=== PATIENT | male | born 1935 | race Caucasian/White ===

== ENCOUNTER 2018-05-25 14:40 | Inpatient (IN) | payer OTHER, BC ==
[2018-05-25] MEDS ORDERED: ACETAMINOPHEN 1000 MG/100 ML VIAL (NON FORMULARY) IVPB ONE (15:00)
[2018-05-25] MEDS ORDERED: SODIUM CHLORIDE 500 ML IV SCH (15:15)
--- NOTE | 2018-05-25 15:15 | PDOC ---
History of Present Illness - General Chief Complaint: Respiratory Stated Complaint: COUGH Time Seen by Provider: 05/25/18 14:45 History Source: Patient, Family (Daughter) Exam Limitations: No Limitations (Speech difficult to understand, but answers all questions appropriately) - History of Present Illness Initial Comments: Pt is a 82 yo M, with PMH of HTN, HLD, CAD and AFib (stents x9 -- on eliquis and plavix), and CVAs, who is presenting from home via EMS for complaints of weakness, vertigo, and cough. The pt is accompanied by his daughter. Pts daughter states the pt began to have dry nasal congestion and dry cough approximately 1 week ago. Throughout the week, the cough became "more wet sounding," but he did not produce any sputum. The cough has been controlled with OTC nyquil, and the pt has been able to sleep during the night. Over the past couple of days, the pt has felt more weak and has not been able to ambulate as much or take a shower. This AM, the pt did not get out of bed to get breakfast, and "he felt so weak he couldn't stand up to go to his appointment with Dr. Sma," which prompted the daughter to call EMS. The pt lives with his daughter for the past 4 years after his last stroke (residual deficits - speech difficulty, R arm contracture); his behavior is baseline currently according to the daughter. The pt can normally walk around the house on his own, and take care of most of his daily activities. Other family members at home have had similar symptoms, such as dry cough and congestion. Pt denies any fevers/chills, headache, vision changes, syncope, orthopnea, PND, chest pain , palpitations, SOB, nausea/vomiting, abdominal pain, urinary symptoms, diarrhea , or leg swelling. Social: Pt denies any cigarette, alcohol, or drug use. Pt denies any recent travel. Sick contacts at home (upper respiratory symptoms) . Surgical: CAD (stents) Family: no relevant history. 05/25/18 15:57 Past History - Travel Traveled outside of the country in the last 30 days: No Close contact w/someone who was outside of country & ill: No - Past Medical History Allergies/Adverse Reactions: Allergies Allergy/AdvReac Type Severity Reaction Status Date / Time No Known Allergies Allergy Verified 11/12/14 07:35 Home Medications: Ambulatory Orders Bisacodyl [Dulcolax] 10 mg RC DAILY PRN 06/07/13 Apixaban [Eliquis] 2.5 mg PO BID 05/25/18 Cholecalciferol (Vitamin D3) [Vitamin D3] 1,000 unit PO DAILY 05/25/18 Docusate Sodium [Colace] 100 mg PO DAILY PRN 05/25/18 Metoprolol Succinate [Toprol Xl] 12.5 mg PO BID 05/25/18 Rosuvastatin [Crestor -] 20 mg PO HS 05/25/18 Anemia: No Asthma: No Cancer: No Cardiac Disorders: Yes (stents x 9) CVA: Yes (01/2013, 08/2013) COPD: No CHF: No Dementia: No Diabetes: No GI Disorders: No Disorders: No HTN: Yes Hypercholesterolemia: Yes Liver Disease: No Seizures: No Thyroid Disease: No - Surgical History Abdominal Surgery: No Appendectomy: No Cardiac Surgery: Yes (BYPASS/STENTS) Cholecystectomy: No Lung Surgery: No Neurologic Surgery: No Orthopedic Surgery: No - Suicide/Smoking/Psychosocial Hx Smoking History: Never smoked Have you smoked in the past 12 months: No Number of Cigarettes Smoked Daily: 0 Cigars Per Day: 0 Hx Alcohol Use: No Drug/Substance Use Hx: No Substance Use Type: None Hx Substance Use Treatment: No Review of Systems - Review of Systems Able to Perform ROS?: Yes Is the patient limited Vietnamese proficient: No Constitutional: Yes: Loss of Appetite, Malaise, Weakness, Weight Stable. No: Chills, Diaphoresis, Fever, Night Sweats HEENTM: Yes: Nose Congestion. No: Blurred Vision, Recent change in vision, Hearing Loss, Throat Pain, Throat Swelling, Difficulty Swallowing Respiratory: Yes: Cough. No: Orthopnea, Shortness of Breath, Productive cough, Hemoptysis Cardiac (ROS): No: Chest Pain, Edema, Irregular Heart Rate, Lightheadedness, Palpitations, Syncope, Chest Tightness ABD/GI: No: Constipated, Diarrhea, Nausea, Poor Appetite, Poor Fluid Intake, Vomiting : No: Burning, Dysuria, Frequency, Pain, Urgency Musculoskeletal: Yes: Muscle Weakness. No: Back Pain, Joint Pain, Muscle Pain Integumentary: No: Rash Neurological: Yes: See HPI, Pre-Existing Deficit. No: Headache, Numbness, Paresthesia, Seizure, Unsteady Gait, Ataxia, Dizziness Psychiatric: No: Sleep Pattern Change, Change in Appetite Endocrine: No: Increased Urine, Change in Weight Hematologic/Lymphatic: Yes: Blood Clots (CAD, CVAs). No: Anemia, Easy Bleeding , Easy Bruising *Physical Exam - Physical Exam Comments: Rectal temp 100.3, HR in 130, O2 97% on RA. Pt in NAD, is able to lie comfortably. Body habitus is very thin. PE showed pt alert and oriented. oleomargarine maker generally intact, muscular strength and sensation intact. Pt has some garbled speech (baseline per daughter). Oropharynx without erythema or exudates. Dry nasal congestion present, no rhinorrhea or sinus tenderness. Hearing intact. Clear heart sounds, S1/S2, no JVD, b/l pedal edema, or heart murmur. Diffuse coarse lung sounds, mild wheezes over the anterior lung elena. No respiratory distress, no accessory muscle use. No abdominal or CVA tenderness to palpation, no rebound, no guarding. Abdomen soft, non-distended, and with normoactive bowel sounds. Skin without jaundice or rash. 05/25/18 15:56 ED Treatment Course - LABORATORY CBC & Chemistry Diagram: 05/25/18 15:15 05/25/18 15:15 Medical Decision Making - Medical Decision Making Pt was seen at bedside, also will be seen by attending Dr. Blum. Pt presenting from home via EMS for complaints of weakness, vertigo, and cough. The pt is accompanied by his daughter. Pts daughter states the pt began to have dry nasal congestion and dry cough approximately 1 week ago. Throughout the week, the cough became "more wet sounding," but he did not produce any sputum. The cough has been controlled with OTC nyquil, and the pt has been able to sleep during the night. Over the past couple of days, the pt has felt more weak and has not been able to ambulate as much or take a shower. This AM, the pt did not get out of bed to get breakfast, and "he felt so weak he couldn't stand up to go to his appointment with Dr. Sam," which prompted the daughter to call EMS. The pt lives with his daughter for the past 4 years after his last stroke (residual deficits - speech difficulty, R arm contracture); his behavior is baseline currently according to the daughter. The pt can normally walk around the house on his own, and take care of most of his daily activities. Other family members at home have had similar symptoms, such as dry cough and congestion. Pt denies any fevers/chills, headache, vision changes, syncope, orthopnea, PND, chest pain , palpitations, SOB, nausea/vomiting, abdominal pain, urinary symptoms, diarrhea , or leg swelling. Rectal temp 100.3, HR in 130, O2 97% on RA. Pt in NAD, is able to lie comfortably. Body habitus is very thin. PE showed pt alert and oriented. oleomargarine maker generally intact, muscular strength and sensation intact. Pt has some garbled speech (baseline per daughter). Oropharynx without erythema or exudates. Dry nasal congestion present, no rhinorrhea or sinus tenderness. Hearing intact. Clear heart sounds, S1/S2, no JVD, b/l pedal edema, or heart murmur. Diffuse coarse lung sounds, mild wheezes over the anterior lung elena. No respiratory distress, no accessory muscle use. No abdominal or CVA tenderness to palpation, no rebound, no guarding. Abdomen soft, non-distended, and with normoactive bowel sounds. Skin without jaundice or rash. Considering sepsis (likely 2/2 pneumonia) vs viral URI/influenza vs ACS vs acute heart failure Ordered work-up including sepsis protocol, blood cultures. Provided 1 g IV ofirmev and 500 mL IV NS (running slow) for improvement of fever and dehydration. Will continue to reassess pt and monitor for symptomatic improvement. Will continue to monitor HR and determine response to tylenol. Will provide pharmaceutical rate control (metoprolol) if necessary. ECG: HR 133, atrial flutter with 2:1 AV conduction. RAD. No significant ST segment elevations or depressions. 05/25/18 14:59 Pt received ofirmev -- HR still in 130s. Providing 5 mg IV metoprolol. Will reassess. Trop .86 -- likely demand CBC: slight anemia (H/H 9.0/29.8); no recent measurements for comparison, no increased WBCs CMP generally WNL INR 1.39 05/25/18 16:04 Repeat vitals after 5 IV metoprolol: BP 132/90, HR 85, O2 97% on RA Ordered 25 mg PO metoprolol for HR control. 05/25/18 16:21 Providing 1 g IV ceftriaxone and 500 mg IV azithromycin. 05/25/18 16:35 VBG: mild respiratory alkalosis, no significant deviations. CK index WNL, elevated trop likely due to demand. 05/25/18 16:49 Lactic 1.4 Chest x-ray shows mild hilar thickening compared to prior (2017), no significant lobar pneumonia. Paging hospitalist team for admission. 05/25/18 17:09 Hospitalist team accepted pt for admission (Dr. Sultana). Pt tolerating PO intake. HR stable in the 80s after metoprolol. Awaiting bed upstairs. 05/25/18 17:42 *DC/Admit/Observation/Transfer Diagnosis at time of Disposition: Elevated troponin, Atrial fibrillation with RVR Pneumonia Qualifiers: Pneumonia type: due to unspecified organism Laterality: unspecified laterality Lung location: unspecified part of lung Qualified Code(s): J18.9 - Pneumonia, unspecified organism - Discharge Dispostion Condition at time of disposition: Stable Decision to Admit order: Yes - Referrals Referrals: Taqueria Sam MD [Primary Care Provider] - - Patient Instructions - Post Discharge Activity
[2018-05-25] MEDS ORDERED: ACETAMINOPHEN INJECTION 100 ML IVPB ONE (15:23)
[2018-05-25 15:37] LABS: BASO % 0.2 % (0-2.0); EOS % 0.1 % (0-4.5); HEMATOCRIT 29.8 % (35.4-49); LYMPH % 17.3 % (8-40); MCHC 30.1 g/dl (32.0-35.9); MEAN CELL VOLUME 83.2 fl (80-96); MEAN PLT VOLUME 7.5 fl (7.5-11.1); NEUT % 75.4 % (42.8-82.8); PLATELET COUNT 279 K/MM3 (134-434); RBC 3.58 M/mm3 (4.00-5.60); RDW 17.9 % (11.9-15.9); WHITE BLOOD COUNT 6.9 K/mm3 (4.0-10.8)
[2018-05-25 15:56] LABS: ALBUMIN 3.5 g/dl (3.4-5.0); ALK PHOS 56 U/L (45-117); ANION GAP 9 MMOL/L (8-16); BILIRUBIN,TOTAL 0.7 mg/dl (0.2-1); BLOOD UREA NITROGEN 13 mg/dl (7-18); CALCIUM 9.1 mg/dl (8.5-10); CHLORIDE 102 mmol/L (98-107); CO2 25 mmol/L (21-32); CREATININE 0.7 mg/dl (0.55-1.3); GLUCOSE,RANDOM 145 mg/dl (74-106); MAGNESIUM 1.9 mg/dL (1.8-2.4); POTASSIUM 3.5 mmol/L (3.5-5.1); SGOT/AST 26 U/L (15-37); SGPT/ALT 9 U/L (13-61); SODIUM 136 mmol/L (136-145); TOT PROT 6.6 g/dl (6.4-8.2)
[2018-05-25 15:59] LABS: INR 1.39 (0.82-1.09); PROTHROMBIN TIME (PATIENT) 15.5 SEC (10.2-13.0)
[2018-05-25] MEDS ORDERED: METOPROLOL TARTRATE 5 MG/5 ML VIAL IVPUSH ONE (16:03)
[2018-05-25] MEDS ORDERED: METOPROLOL TARTRATE 5 MG/5 ML VIAL ONE (16:13)
--- NOTE | 2018-05-25 16:18 | PDOC ---
Attending Attestation - Resident Resident Name: Marni Roland - ED Attending Attestation I have performed the following: I have examined & evaluated the patient, The case was reviewed & discussed with the resident, I agree w/resident's findings & plan, Exceptions are as noted - HPI HPI: 05/25/18 16:06 82 M with h/o HTN, HLD, CAD/UT, Afib, CVAs, PNA, presenting to ED with cough, weakness x 5 days. Pt denies CP/SOB. Reports non-productive cough. Denies subjective fevers. Endorses severe general weakness. No unilateral weakness/ numbness. Denies leg swelling. - Physicial Exam PE: 05/25/18 16:09 "GENERAL: Awake, alert, and fully oriented, in no acute distress. HEAD: No signs of trauma EYES: PERRLA, EOMI, sclera anicteric, conjunctiva clear ENT: Auricles normal inspection, hearing grossly normal, nares patent, oropharynx clear without exudates. Moist mucosa NECK: Nontender, no stepoffs, Normal ROM, supple, no lymphadenopathy, JVD, or masses LUNGS: + diffuse rhonchi HEART: Regular rate and rhythm, normal S1 and S2, no murmurs, rubs or gallops ABDOMEN: Soft, nontender, normoactive bowel sounds. No guarding, no rebound. No masses EXTREMITIES: Normal range of motion, no edema. No clubbing or cyanosis. No cords, erythema, or tenderness NEUROLOGICAL: Cranial nerves II through XII intact. 5/5 strength and sensation in all extremities, Normal speech, normal gait, normal cerebellar function SKIN: Warm, Dry, normal turgor, no rashes or lesions noted. - Critical Care Time Total Critical Care Time: 60 Critical Care Statement: The care of this patient involved high complexity decision making to prevent further life threatening deterioration of the patient 's condition and/or to evaluate & treat vital organ system(s) failure or risk of failure. - Medical Decision Making 05/25/18 16:18 82 M with cough, weakness. Found to be febrile and tachycardic in ED. Will w/u for sepsis. Suspect pulmonary source given h/o PNA and rhonchorous lung sounds. Pt also found to be in aflutter HR 130s on EKG. - Labs, lactate, cultures - CXR, UA - Flu swab - Tylenol, Gentle IVF - Rate control as needed 05/25/18 16:27 Labs with trop 0.8, likely demand in setting of sepsis and aflutter with RVR Pt given metoprolol 5mg IV and 25mg PO with improvement in HR to 80s.
[2018-05-25] MEDS ORDERED: METOPROLOL TARTRATE 25 MG TABLET (FP) PO ONE (16:23)
[2018-05-25] MEDS ORDERED: METOPROLOL TARTRATE 50 MG TABLET (FP) ONE (16:26)
[2018-05-25] MEDS ORDERED: CEFTRIAXONE 1,000 MG in DEXTROSE 5%-WATER - 50 ML IVPB ONE (16:30)
[2018-05-25] MEDS ORDERED: AZITHROMYCIN IVPB 500 MG in DEXTROSE 5%-WATER - 250 ML IVPB ONE (16:31)
[2018-05-25] MEDS ORDERED: AZITHROMYCIN 500 MG VIAL IVPB ONE (16:34)
[2018-05-25] MEDS ORDERED: cefTRIAXone SODIUM 1 GM VIAL ONE (16:35)
[2018-05-25 16:41] LABS: VENOUS PC02 37.2 mmHg (38-52); VENOUS PH 7.46 (7.32-7.42); VENOUS PO2 42.4 mmHg (28-48)
[2018-05-25] MEDS ORDERED: BISACODYL 10 MG SUPP.RECT RC PRN (20:09)
[2018-05-25] MEDS ORDERED: DOCUSATE SODIUM 100 MG CAPSULE (FP) PO PRN (20:09)
[2018-05-25] MEDS: ROSUVASTATIN CA 20 MG TABLET (FP) PO SCH (21:38)
[2018-05-25] MEDS: metoPROLOL SUCCINATE 25 MG TAB.SR.24H (FP) PO SCH (21:38)
[2018-05-25] MEDS: APIXABAN 2.5 MG TABLET PO SCH (21:38)
--- NOTE | 2018-05-25 23:18 | HP ---
Admitting History and Physical - Primary Care Physician PCP: Taqueria Sam - Admission Chief Complaint: Fever, Weakness, Dizziness, Cough History of Present Illness: This is a 82 y/o man with a PMHx of: Afib (Eliquis, Metoprolol), CAD s/p Stents x9, HTN, HLD, CVA (R- residual, Dysarthria, 2012,2013). Who presents to the Ed via ambulance from home for cough x 1 week, fever, weakness, dizziness x today. Patient reports feeling weak and having a fever today. He reports having a cough for one week. Patient denies chills, SOB, CP, palpitations, AP, N/V/D, dysuria. Per the daughter who reported to the primary RN everyone at home has been sick. 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 Cardiovascular: Yes: AFIB, CAD, HTN, Hyperlipdemia, [place] - Past Surgical History Past Surgical History: Yes: CABG, Stent - Smoking History Smoking history: Never smoked Have you smoked in the past 12 months: No Aproximately how many cigarettes per day: 0 - Alcohol/Substance Use Hx Alcohol Use: No History of Substance Use: reports: None - Social History Usual Living Arrangement: Yes: With Child ADL: Family Assistance History of Recent Travel: No Home Medications - Allergies Allergies/Adverse Reactions: Allergies Allergy/AdvReac Type Severity Reaction Status Date / Time No Known Allergies Allergy Verified 11/12/14 07:35 - Home Medications Home Medications: Ambulatory Orders Bisacodyl [Dulcolax] 10 mg RC DAILY PRN 06/07/13 Apixaban [Eliquis] 2.5 mg PO BID 05/25/18 Cholecalciferol (Vitamin D3) [Vitamin D3] 1,000 unit PO DAILY 05/25/18 Docusate Sodium [Colace] 100 mg PO DAILY PRN 05/25/18 Metoprolol Succinate [Toprol Xl] 12.5 mg PO BID 05/25/18 Rosuvastatin [Crestor -] 20 mg PO HS 05/25/18 Family Disease History - Family Disease History Family History: Unable to Obtain Review of Systems - Review of Systems Constitutional: reports: Fever, Malaise, Weakness Eyes: reports: No Symptoms HENT: reports: No Symptoms Neck: reports: No Symptoms Cardiovascular: reports: No Symptoms Respiratory: reports: Cough Gastrointestinal: reports: Constipation Genitourinary: reports: No Symptoms Breasts: reports: No Symptoms Reported Musculoskeletal: reports: No Symptoms Integumentary: reports: No Symptoms Neurological: reports: Pre-Existing Deficit, Unsteady Gait, Weakness Endocrine: reports: No Symptoms Hematology/Lymphatic: reports: No Symptoms Psychiatric: reports: No Symptoms Physical Examination Vital Signs: Vital Signs Temperature 97.8 F 05/25/18 19:54 Pulse Rate 84 05/25/18 19:54 Respiratory Rate 18 05/25/18 19:54 Blood Pressure 113/47 L 05/25/18 19:54 O2 Sat by Pulse Oximetry (%) 97 05/25/18 21:00 Constitutional: Yes: No Distress, Calm, Thin Eyes: Yes: WNL, Conjunctiva Clear, EOM Intact, PERRL HENT: Yes: WNL, Atraumatic, Normocephalic Neck: Yes: WNL, Supple, Trachea Midline Cardiovascular: Yes: Pulse Irregular, S1, S2 Respiratory: Yes: Diminished, Rhonchi Gastrointestinal: Yes: WNL, Normal Bowel Sounds, Soft Renal/: Yes: WNL Breast(s): Yes: WNL Musculoskeletal: Yes: WNL Extremities: Yes: WNL Edema: No Peripheral Pulses WNL: Yes Neurological: Yes: Alert, Oriented, Cran Nerves II-XII Intact, Dysarthria ...Motor Strength: RUE (4/5) Psychiatric: Yes: WNL, Alert, Oriented Labs: CBC, BMP 05/25/18 15:15 05/25/18 15:15 Imaging - Results Chest X-ray: Report Reviewed, Image Reviewed EKG: Image Reviewed Problem List - Problems (1) Atrial fibrillation with RVR Code(s): I48.91 - UNSPECIFIED ATRIAL FIBRILLATION (2) Elevated troponin Code(s): R74.8 - ABNORMAL LEVELS OF OTHER SERUM ENZYMES (3) Pneumonia Code(s): J18.9 - PNEUMONIA, UNSPECIFIED ORGANISM Qualifiers: Pneumonia type: due to unspecified organism Laterality: unspecified laterality Lung location: unspecified part of lung Qualified Code(s): J18.9 - Pneumonia, unspecified organism (4) CAD (coronary artery disease) Code(s): I25.10 - ATHSCL HEART DISEASE OF [place] CORONARY ARTERY W/O ANG PCTRS (5) CVA (cerebral infarction) Code(s): I63.9 - CEREBRAL INFARCTION, UNSPECIFIED (6) Hyperlipidemia Code(s): E78.5 - HYPERLIPIDEMIA, UNSPECIFIED (7) Hypertension Code(s): I10 - ESSENTIAL (PRIMARY) HYPERTENSION Assessment/Plan This is a 82 y/o man admitted to Telemetry for Afib with RVR, Elevated Troponin , Pneumonia, Acute COPD Exacerbation, Generalized Weakness for further evaluation of their emergent condition. Plan: Cardiovascular: Afib with RVR Elevated Troponin HTN HLD CAD Admit to Telemetry Serial Enzymes Elevated Troponin likely demand ischemia Appreciate Cardiology consult Metoprolol given in ED, will continue EKG- Aflutter with 2:1 AV conduction [id number] Continue home meds Pulmonology: Pneumonia COPD Exacerbation [id number] Score 1 Blood Cultures-pending Chest xray image- coarse lung markings ?infiltrate RML Ceftriaxone, Azithromycin given in ED, will continue Urine Legionella O2 Monitor CBC, BMP Monitor vitals Tylenol prn Neuro: CVA Generalized Weakness Continue home meds NS bolus given in ED Will hold IVF concern for fluid overload, reassess in am Monitor CBC, BMP Fall precautions Appreciate PT eval for conditioning and gait strengthening FEN PO fluids as tolerated Replete lytes prn Low Na Diet DVT ppx OOB SCDs Heparin SQ Dispo: Requires Inpatient Care Visit type - Emergency Visit Emergency Visit: Yes ED Registration Date: 05/25/18 Care time: The patient presented to the Emergency Department on the above date and was hospitalized for further evaluation of their emergent condition. - New Patient This patient is new to me today: Yes Date on this admission: 05/25/18 - Critical Care Critical Care patient: No
--- NOTE | 2018-05-26 08:02 | PN ---
Physical Exam: SUBJECTIVE: Patient seen and examined, pt denies cp, sob, palpitations, abdominal pain, N/V/D. OBJECTIVE: Vital Signs Period Temp Pulse Resp BP Sys/Greer Pulse Ox Last 24 Hr 97.8 F-100.3 F 63-134 17-21 106-141/47-95 96-99 GENERAL: The patient is awake, alert, and fully oriented, in no acute distress, dysphasia from previous CVC HEAD: Normal with no signs of trauma. EYES: PERRL, extraocular movements intact, sclera anicteric, conjunctiva clear. No ptosis. ENT: Ears normal, nares patent, oropharynx clear without exudates, moist mucous membranes. NECK: Trachea midline, full range of motion, supple. LUNGS: Breath sounds equal, clear to auscultation bilaterally, no wheezes, no crackles, no accessory muscle use. HEART: regular ABDOMEN: Soft, nontender, nondistended, normoactive bowel sounds, no guarding, no rebound, no hepatosplenomegaly, no masses. EXTREMITIES: 2+ pulses, warm, well-perfused, no edema., Rt hand contracted, Rt side weakness NEUROLOGICAL: Cranial nerves II through XII grossly intact. Normal speech, gait not observed. PSYCH: Normal mood, normal affect. SKIN: Warm, dry, normal turgor, no rashes or lesions noted Laboratory Results - last 24 hr 05/25/18 05/25/18 05/25/18 15:15 15:15 15:15 WBC 6.9 RBC 3.58 L Hgb 9.0 L Hct 29.8 L MCV 83.2 MCH 25.0 L D MCHC 30.1 L RDW 17.9 H D Plt Count 279 MPV 7.5 Absolute Neuts (auto) 5.2 Neutrophils % 75.4 Lymphocytes % 17.3 Monocytes % 7.0 Eosinophils % 0.1 D Basophils % 0.2 PT with INR 15.5 H INR 1.39 H VBG pH POC VBG pCO2 POC VBG pO2 Mixed VBG HCO3 Sodium 136 Potassium 3.5 Chloride 102 Carbon Dioxide 25 Anion Gap 9 BUN 13 Creatinine 0.7 Creat Clearance w eGFR > 60 POC Glucometer Random Glucose 145 H Lactic Acid Calcium 9.1 Magnesium 1.9 Total Bilirubin 0.7 AST 26 ALT 9 L Alkaline Phosphatase 56 Creatine Kinase Creatine Kinase Index CK-MB (CK-2) Troponin I Total Protein 6.6 Albumin 3.5 Influenza A (Rapid) Influenza B (Rapid) 05/25/18 05/25/18 05/25/18 15:15 15:15 15:15 WBC RBC Hgb Hct MCV MCH MCHC RDW Plt Count MPV Absolute Neuts (auto) Neutrophils % Lymphocytes % Monocytes % Eosinophils % Basophils % PT with INR INR VBG pH POC VBG pCO2 POC VBG pO2 Mixed VBG HCO3 Sodium Potassium Chloride Carbon Dioxide Anion Gap BUN Creatinine Creat Clearance w eGFR POC Glucometer Random Glucose Lactic Acid 1.4 Calcium Magnesium Total Bilirubin AST ALT Alkaline Phosphatase Creatine Kinase 174 Creatine Kinase Index 2.0 CK-MB (CK-2) 3.5 Troponin I 0.81 H* D Total Protein Albumin Influenza A (Rapid) Influenza B (Rapid) 05/25/18 05/25/18 05/25/18 15:34 15:34 17:58 WBC RBC Hgb Hct MCV MCH MCHC RDW Plt Count MPV Absolute Neuts (auto) Neutrophils % Lymphocytes % Monocytes % Eosinophils % Basophils % PT with INR INR VBG pH 7.46 H POC VBG pCO2 37.2 L POC VBG pO2 42.4 Mixed VBG HCO3 26.0 H Sodium Potassium Chloride Carbon Dioxide Anion Gap BUN Creatinine Creat Clearance w eGFR POC Glucometer Random Glucose Lactic Acid Calcium Magnesium Total Bilirubin AST ALT Alkaline Phosphatase Creatine Kinase Creatine Kinase Index CK-MB (CK-2) Troponin I 0.86 H* Total Protein Albumin Influenza A (Rapid) Negative Influenza B (Rapid) Negative 05/25/18 05/25/18 21:00 22:26 WBC RBC Hgb Hct MCV MCH MCHC RDW Plt Count MPV Absolute Neuts (auto) Neutrophils % Lymphocytes % Monocytes % Eosinophils % Basophils % PT with INR INR VBG pH POC VBG pCO2 POC VBG pO2 Mixed VBG HCO3 Sodium Potassium Chloride Carbon Dioxide Anion Gap BUN Creatinine Creat Clearance w eGFR POC Glucometer 131 Random Glucose Lactic Acid Calcium Magnesium Total Bilirubin AST ALT Alkaline Phosphatase Creatine Kinase Creatine Kinase Index CK-MB (CK-2) Troponin I 0.95 H* Total Protein Albumin Influenza A (Rapid) Influenza B (Rapid) Active Medications Generic Name Dose Route Start Last Admin Trade Name Freq PRN Reason Stop Dose Admin Apixaban 2.5 mg 05/25/18 22:00 05/25/18 21:38 Eliquis - PO 2.5 mg BID RAUL Administration Bisacodyl 10 mg 05/25/18 20:09 Dulcolax Suppository - RC DAILY PRN CONSTIPATION Cholecalciferol 1,000 unit 05/26/18 10:00 Vitamin D3 - PO DAILY RAUL Clopidogrel Bisulfate 75 mg 05/26/18 10:00 Plavix - PO DAILY RAUL Docusate Sodium 100 mg 05/25/18 20:09 Colace - PO DAILY PRN CONSTIPATION Sodium Chloride 500 mls @ 150 mls/hr 05/25/18 15:15 05/25/18 15:34 Normal Saline - IV 150 mls/hr ASDIR RAUL Administration Azithromycin 500 mg in 250 mls @ 250 mls/hr 05/26/18 10:00 Zithromax 500mg Ivpb (Pre-Docked) IVPB DAILY RAUL Ceftriaxone Sodium 50 mls @ 100 mls/hr 05/26/18 10:00 Ceftriaxone 1 Gm-[id number] Bag IVPB DAILY [facility] Protocol Lisinopril 5 mg 05/26/18 10:00 Prinivil PO DAILY RAUL Metoprolol Succinate 12.5 mg 05/25/18 22:00 05/25/18 21:38 Toprol Xl - PO 12.5 mg BID RAUL Administration Rosuvastatin Calcium 20 mg 05/25/18 22:00 05/25/18 21:38 Crestor - PO 20 mg HS RAUL Administration EKG: A- Flutter 130's CxR: No acute pathology Blood Culture done, report pending ASSESSMENT/PLAN: This is a 82 y/o man with a PMHx of: Afib (Eliquis, Metoprolol), CAD s/p Stents x9, HTN, HLD, CVA (R- residual, Dysarthria, 2012,2013). Who presents to the Ed via ambulance from home for cough x 1 week, fever, weakness, dizziness. In Er found to have A- Fib with RVR and elevated Trop. * Rapid A- fib - now HR improved in 80--90's - tele monitoring -will cont on Eliquis, BB - will check TSH * Abnormal Trop, hx of CAD with stents x9, - Trop level 0.95>0.79 - No acute EKG changes -will cont on BB, Plavix Statin - cardiology consult - Echo - tele monitoring * Low grade fever, cough, ? bronchitis vs CAp - Influenza ruled out - CxR: No infiltrate - afebrile now, no leukocytosis - BC pending - will cont on abx - lactic acid normal * Anemia - r/o GI bleed - CBC trending down ? dilution - will check stool OB -Fe studies, LDH, hapoglobin *HTN- Bp stable - will cont on Lisinopril and BB * HLD - will cont on Statin * HX of CVA (R- residual, Dysarthria, 2012,2013). - will cont on Eliquis, Statin * F/E/N Heart Healthy Diet PT eval * VTE on Eliquis Visit type - Emergency Visit Emergency Visit: Yes ED Registration Date: 05/25/18 Care time: The patient presented to the Emergency Department on the above date and was hospitalized for further evaluation of their emergent condition. - New Patient This patient is new to me today: Yes Date on this admission: 05/26/18 - Critical Care Critical Care patient: No
[2018-05-26 08:25] LABS: ANION GAP 9 MMOL/L (8-16); BASO % 0.3 % (0-2.0); BLOOD UREA NITROGEN 15 mg/dl (7-18); CHLORIDE 106 mmol/L (98-107); CO2 26 mmol/L (21-32); CREATININE 0.7 mg/dl (0.55-1.3); GLUCOSE,RANDOM 106 mg/dl (74-106); HEMATOCRIT 26.5 % (35.4-49); LYMPH % 26.8 % (8-40); MCHC 30.4 g/dl (32.0-35.9); MEAN CELL VOLUME 82.5 fl (80-96); MEAN PLT VOLUME 7.7 fl (7.5-11.1); MONO % 7.5 % (3.8-10.2); NEUT % 64.4 % (42.8-82.8); PLATELET COUNT 253 K/MM3 (134-434); POTASSIUM 4.3 mmol/L (3.5-5.1); RBC 3.21 M/mm3 (4.00-5.60); RDW 17.4 % (11.9-15.9); SODIUM 141 mmol/L (136-145); WHITE BLOOD COUNT 6.1 K/mm3 (4.0-10.8)
[2018-05-26 08:33] LABS: CHOLESTEROL 98 mg/dl (50-200); HDL CHOLESTEROL 33 mg/dl (40-60); LDL CHOLESTEROL (ONLY DFH) 53 mg/dl (0-100); TRIGLYCERIDES 61 mg/dl (0-150)
[2018-05-26] MEDS: APIXABAN 2.5 MG TABLET PO SCH ×2 (09:16→21:25)
[2018-05-26] MEDS: CLOPIDOGREL BISULFATE 75 MG TABLET (FP) PO SCH (09:17)
[2018-05-26] MEDS: LISINOPRIL 5 MG TABLET (FP) PO SCH (09:17)
[2018-05-26] MEDS: CEFTRIAXONE 1 G/50 ML PREMIX 50 ML IVPB SCH (09:17)
[2018-05-26] MEDS: CHOLECALCIFEROL (VITAMIN D3) 1,000 UNIT TABLET (FP) PO SCH (09:17)
[2018-05-26] MEDS: metoPROLOL SUCCINATE 25 MG TAB.SR.24H (FP) PO SCH ×2 (09:18→21:25)
[2018-05-26] MEDS: AZITHROMYCIN IVPB 500 MG/250 ML BAG IVPB SCH (09:18)
--- NOTE | 2018-05-26 11:50 | EKG ---
Test Reason : Blood Pressure : / mmHG Vent. Rate : 133 BPM Atrial Rate : 266 BPM P-R Int : 000 ms QRS Dur : 104 ms QT Int : 326 ms P-R-T Axes : 106 097 -58 degrees QTc Int : 485 ms SUSPECT ARM LEAD REVERSAL, INTERPRETATION ASSUMES NO REVERSAL ATRIAL FLUTTER WITH 2:1 A-V CONDUCTION RIGHTWARD AXIS NONSPECIFIC ST ABNORMALITY ABNORMAL QRS-T ANGLE, CONSIDER PRIMARY T WAVE ABNORMALITY ABNORMAL ECG WHEN COMPARED WITH ECG OF 07-DEC-2013 19:46, SIGNIFICANT CHANGES HAVE OCCURRED Confirmed by FRANNIE CHASE, JOSETTE ([id number]) on 05/26/2018 11:50:21 AM Referred By: BEBE SANDERSON Confirmed By:JOSETTE KATHLEEN MD
--- NOTE | 2018-05-26 14:37 | ECHO ---
Version: 1 Name: MARGOT FAY Exam: Adult Echocardiogram Study Date: 05/26/2018, 1:13 PM Age: 82 Years MMode/2D Measurements & Calculations IVSd: 0.96 cm LVIDs: 3.0 cm LVIDd: 4.8 cm LVPWd: 0.88 cm Ao root diam: 3.1 cm LA dimension: 4.2 cm Doppler Measurements & Calculations MV E max rico: 95.4 cm/sec MV A max rico: 41.4 cm/sec MV E/A: 2.30 MR max P.6 mmHg PI end-d rico: 113.4 cm/sec TR max rico: 168.8 cm/sec TR max P.4 mmHg Left Ventricle There is mild concentric left ventricular hypertrophy. Left ventricular systolic function is low nor mal. Ejection Fraction = 45-50%. There is mild inferior wall hypokinesis. Septal motion is consistent wit h conduction abnormality. Right Ventricle The right ventricle is grossly normal size. The right ventricular systolic function is grossly haider l. Atria The left atrium is mildly dilated. Right atrial size is normal. Mitral Valve There is mild to moderate mitral valve thickening. There is no mitral valve stenosis. There is mild mitral regurgitation. Tricuspid Valve The tricuspid valve is normal in structure and function. There is mild tricuspid regurgitation. Aortic Valve There is mild to moderate aortic valve thickening. No hemodynamically significant valvular aortic st enosis. Mild aortic regurgitation. Pulmonic Valve The pulmonic valve is not well seen, but is grossly normal. There is no pulmonic valvular stenosis. Mild pulmonic valvular regurgitation. Great Vessels The aortic root is normal size. Pericardium/Pleura There is no pericardial effusion. Summary Statements There is mild inferior wall hypokinesis. Septal motion is consistent with conduction abnormality. Left ventricular systolic function is low normal. Ejection Fraction = 45-50%. The left atrium is mildly dilated. There is mild to moderate mitral valve thickening. There is mild mitral regurgitation. There is mild tricuspid regurgitation. There is mild to moderate aortic valve thickening. Mild aortic regurgitation. There is no pericardial effusion. MD Denney *Tracy 05/26/2018, 2:36 PM Ordering Physician: Carina Jules Performed By: Tiffani Arauz
--- NOTE | 2018-05-26 15:02 | CON.CARD ---
Consult Consult Specialty:: Cardiology Referred by:: Medicine Reason for Consultation:: afib - History of Present Illness Chief Complaint: shortness of breath, cough, fever History of Present Illness: 82M h/o afib on eliquis, CAD s/p stents x 9, HTN, HLD, CVA p/w cough, fever, weakness, dizziness. Prior patient of Dr. Ferguson for cardio. Noted in the ER to have elevated troponin, tachycardia, treating for PNA. Currently feels better, no chest pain, palps, dizziness, lightheadedness. dyspnea, cough improving. 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 Cardio/Vascular: Yes: AFIB, CAD, HTN, Hyperlipdemia, SD - Past Surgical History Past Surgical History: Yes: CABG, Stent - Alcohol/Substance Use Hx Alcohol Use: No History of Substance Use: reports: None - Smoking History Smoking history: Never smoked Have you smoked in the past 12 months: No Aproximately how many cigarettes per day: 0 - Social History ADL: Family Assistance History of Recent Travel: No Home Medications - Allergies Allergies/Adverse Reactions: Allergies Allergy/AdvReac Type Severity Reaction Status Date / Time No Known Allergies Allergy Verified 11/12/14 07:35 - Home Medications Home Medications: Ambulatory Orders Bisacodyl [Dulcolax] 10 mg RC DAILY PRN 06/07/13 Apixaban [Eliquis] 2.5 mg PO BID 05/25/18 Cholecalciferol (Vitamin D3) [Vitamin D3] 1,000 unit PO DAILY 05/25/18 Docusate Sodium [Colace] 100 mg PO DAILY PRN 05/25/18 Metoprolol Succinate [Toprol Xl] 12.5 mg PO BID 05/25/18 Rosuvastatin [Crestor -] 20 mg PO HS 05/25/18 Family Disease History - Family Disease History Family History: Unremarkable Review of Systems - Review of Systems Constitutional: reports: No Symptoms Eyes: reports: No Symptoms HENT: reports: No Symptoms Neck: reports: No Symptoms Cardiovascular: reports: No Symptoms Respiratory: reports: No Symptoms Gastrointestinal: reports: No Symptoms Genitourinary: reports: No Symptoms Musculoskeletal: reports: No Symptoms Integumentary: reports: No Symptoms Neurological: reports: No Symptoms Endocrine: reports: No Symptoms Hematology/Lymphatic: reports: No Symptoms Psychiatric: reports: No Symptoms Vital Signs: Vital Signs Temperature 98.8 F 05/26/18 14:35 Pulse Rate 87 05/26/18 14:35 Respiratory Rate 16 05/26/18 14:35 Blood Pressure 114/56 L 05/26/18 14:35 O2 Sat by Pulse Oximetry (%) 100 05/26/18 14:37 Constitutional: Yes: Well Nourished, No Distress, Calm Eyes: Yes: Conjunctiva Clear, EOM Intact HENT: Yes: Atraumatic, Normocephalic Neck: Yes: Supple, Trachea Midline Respiratory: Yes: Regular, CTA Bilaterally Gastrointestinal: Yes: Normal Bowel Sounds, Soft Cardiovascular: Yes: Pulse Irregular JVD: No Carotid Bruit: No PMI: Non-Displaced Heart Sounds: Yes: S1, S2 Musculoskeletal: No: Back Pain Extremities: No: Cold Edema: No Peripheral Pulses WNL: Yes Peripheral Pulses: 2+ Left Doralis Pedis, 2+ Right Dorsalis Pedis Integumentary: No: Jaundice Neurological: Yes: Alert, Oriented Psychiatric: No: Agitated - Other Data Labs, Other Data: CBC, BMP 05/26/18 07:10 05/26/18 07:10 INR, PTT INR 1.39 (0.82-1.09) H 05/25/18 15:15 Troponin, BNP 05/25/18 05/25/18 05/25/18 15:15 17:58 21:00 Troponin I 0.81 H* D 0.86 H* 0.95 H* 05/26/18 07:10 Troponin I 0.79 H* Troponin, BNP 05/25/18 05/25/18 05/25/18 15:15 17:58 21:00 Troponin I 0.81 H* D 0.86 H* 0.95 H* 05/26/18 07:10 Troponin I 0.79 H* Assessment/Plan echo 05/2018 mild inf wall hypokinesis, septal motion c/w conduction abnormality , EF 45-50%, low normal systolic function, LA mildly dilated, mild MR, mild TR, mild AR echo 09/2017 afib, 80s, nl LV fn, hypokinesis of inferobasal wall and inf apex, mild to mod AR, mild to mod MR, ao sinus 3.8 cm, asc ao 3.8 cm, EKG: aflutter rate 133 bpm CXR no acute process tele: afib, PVCs 82M h/o afib on eliquis, CAD s/p stents x 9, HTN, HLD, CVA p/w cough, fever, weakness, dizziness with elevated trop shortness of breath, cough - treating for COPD exac, pna per primary elevated troponin - flat trend, indeterminate range, EKG no ischemic changes, unlikely ACS - likely demand ischemia atrial fibrillation - cont eliquis - rapid rate may be in setting of infection, improved - rate improved on metoprolol, continue cardiomyopathy - new compared to echo from clinic 09/2017, low normal EF - appears euvolemic, defer diuretics - continue lisinopril, metoprolol CAD - s/p SD, CABG 1989, multiple PCIs, last 2002 - cont plavix, statin HLD - cont statin HTN - cont home meds lisinopril, metoprolol, stable
[2018-05-26] MEDS: ROSUVASTATIN CA 20 MG TABLET (FP) PO SCH (21:25)
[2018-05-27 06:29] VITALS: BP 108/40; PULSE 72; TEMP 97.4
[2018-05-27 08:06] LABS: SERUM IRON SATURATION 5 % (15-55); TOTAL IRON BINDING CAPACITY 304 ug/dL (250-450); UIBC 290 ug/dL (111-343)
[2018-05-27 08:51] LABS: BASO % 0.5 % (0-2.0); EOS % 1.9 % (0-4.5); HEMATOCRIT 28.4 % (35.4-49); HEMOGLOBIN 8.7 GM/dl (11.7-16.9); LYMPH % 51.3 % (8-40); MCH 25.4 pg (25.7-33.7); MCHC 30.7 g/dl (32.0-35.9); MEAN CELL VOLUME 82.8 fl (80-96); MEAN PLT VOLUME 7.7 fl (7.5-11.1); MONO % 6.6 % (3.8-10.2); NEUT % 39.7 % (42.8-82.8); PLATELET COUNT 324 K/MM3 (134-434); RBC 3.43 M/mm3 (4.00-5.60); RDW 17.9 % (11.9-15.9); WHITE BLOOD COUNT 7.2 K/mm3 (4.0-10.8)
[2018-05-27 09:53] LABS: PH,URINE 5.5 (4.5-8); URINE APPEARANCE Clear; URINE BILIRUBIN 1+ (NEGATIVE); URINE COLOR Amber; URINE GLUCOSE (UA) Negative (NEGATIVE); URINE KETONE Trace (NEGATIVE); URINE LEUK ESTERASE Negative (NEGATIVE); URINE NITRITE Negative (NEGATIVE); URINE PROTEIN 1+ (NEGATIVE)
[2018-05-27 10:00] LABS: URINE RBC 0-2 /hpf (0-3)
[2018-05-27 10:01] LABS: URINE MUCUS 1+
[2018-05-27] MEDS: APIXABAN 2.5 MG TABLET PO SCH (10:01)
[2018-05-27] MEDS: AZITHROMYCIN IVPB 500 MG/250 ML BAG IVPB SCH (10:01)
[2018-05-27] MEDS: CLOPIDOGREL BISULFATE 75 MG TABLET (FP) PO SCH (10:01)
[2018-05-27] MEDS: CEFTRIAXONE 1 G/50 ML PREMIX 50 ML IVPB SCH (10:01)
[2018-05-27] MEDS: metoPROLOL SUCCINATE 25 MG TAB.SR.24H (FP) PO SCH (10:02)
[2018-05-27] MEDS: CHOLECALCIFEROL (VITAMIN D3) 1,000 UNIT TABLET (FP) PO SCH (10:02)
[2018-05-27] MEDS: LISINOPRIL 5 MG TABLET (FP) PO SCH (10:02)
--- NOTE | 2018-05-27 13:32 | DS ---
Physical Exam: SUBJECTIVE: Patient seen and examined OBJECTIVE: Vital Signs Period Temp Pulse Resp BP Sys/Greer Pulse Ox Last 24 Hr 97.4 F-98.8 F 72-127 16-19 108-124/40-80 94-100 PHYSICAL EXAM GENERAL: The patient is awake, alert, and fully oriented, in no acute distress. HEAD: Normal with no signs of trauma. EYES: PERRL, extraocular movements intact, sclera anicteric, conjunctiva clear. ENT: Ears normal, nares patent, oropharynx clear without exudates, moist mucous membranes. NECK: Trachea midline, full range of motion, supple. LUNGS: Breath sounds equal, clear to auscultation bilaterally, no wheezes, no crackles, no accessory muscle use. HEART: Regular rate and rhythm, S1, S2 without murmur, rub or gallop. ABDOMEN: Soft, nontender, nondistended, normoactive bowel sounds, no guarding, no rebound, no hepatosplenomegaly, no masses. EXTREMITIES: 2+ pulses, warm, well-perfused, no edema. NEUROLOGICAL: Cranial nerves II through XII grossly intact. Normal speech, gait not observed. PSYCH: Normal mood, normal affect. SKIN: Warm, dry, normal turgor, no rashes or lesions noted. LABS Laboratory Results - last 24 hr 05/26/18 05/26/18 05/27/18 07:00 07:10 07:50 WBC 7.2 RBC 3.43 L Hgb 8.7 L Hct 28.4 L MCV 82.8 MCH 25.4 L MCHC 30.7 L RDW 17.9 H Plt Count 324 D MPV 7.7 Absolute Neuts (auto) 2.9 Neutrophils % 39.7 L D Lymphocytes % 51.3 H D Monocytes % 6.6 Eosinophils % 1.9 D Basophils % 0.5 Haptoglobin 312 H Iron 14 L TIBC 304 Iron Saturation 5 L Urine Color Urine Appearance Urine pH Ur Specific Clawson Urine Protein Urine Glucose (UA) Urine Ketones Urine Blood Urine Nitrite Urine Bilirubin Urine Urobilinogen Ur Leukocyte Esterase Urine RBC Urine WBC Urine Mucus 05/27/18 09:00 WBC RBC Hgb Hct MCV MCH MCHC RDW Plt Count MPV Absolute Neuts (auto) Neutrophils % Lymphocytes % Monocytes % Eosinophils % Basophils % Haptoglobin Iron TIBC Iron Saturation Urine Color Evelina Urine Appearance Clear Urine pH 5.5 D Ur Specific Clawson >= 1.030 Urine Protein 1+ H Urine Glucose (UA) Negative Urine Ketones Trace Urine Blood Negative Urine Nitrite Negative Urine Bilirubin 1+ H Urine Urobilinogen 1.0 Ur Leukocyte Esterase Negative Urine RBC 0-2 Urine WBC 2-5 Urine Mucus 1+ HOSPITAL COURSE: Date of Admission:05/25/18 Date of Discharge: 05/27/18 Pre hospital course This is a 82 y/o man with a PMHx of: Afib (Eliquis, Metoprolol), CAD s/p Stents x9, HTN, HLD, CVA (R- residual, Dysarthria, 2012,2013). Who presents to the Ed via ambulance from home for cough x 1 week, fever, weakness, dizziness x today. Patient reports feeling weak and having a fever today. He reports having a cough for one week. Patient denies chills, SOB, CP, palpitations, AP, N/V/D, dysuria. Per the daughter who reported to the primary RN everyone at home has been sick. Subsequent hospital course This is a 82 y/o man with a PMHx of: Afib (Eliquis, Metoprolol), CAD s/p Stents x9, HTN, HLD, CVA (R- residual, Dysarthria, 2012,2013). Who presents to the Ed via ambulance from home for cough x 1 week, fever, weakness, dizziness. In Er found to have A- Fib with RVR and elevated Trop. Atrial fibrillation --initial HR 134 in ED, quickly came under control --continued on home dose Toprol XL --continued Eliquis --TSH wnl Cardiomyopathy Systolic function low normal --05/26 Echo: mild cLVH; LV low normal, EF 45-50%; mild inferiorwall hypokinesis; RV normal; LAE; mild MR; mild TR; mild AI; mild PI CAD s/p stents --troponins flat trending, no acute ECG changes --contnued on Toprol XL, Plavix, Crestor Hypertension --continued on lisinopril, Toprol XL Hyperlipidemia --continued on Crestor Upper respiratory viral illness --afebrile, no leukocytosis, CXR negative, flu negative --treated empirically on azithro and ceftriaxone, discharged off antibiotics --at time of discharge, SpO2 95% on room air at rest; 99% on room air with flat surface walking Minutes to complete discharge: 35 Discharge Summary Reason For Visit: ECELATED TROPONIN LEVEL, PNEUMOIA Current Active Problems Atrial fibrillation with RVR (Acute) Elevated troponin (Acute) Pneumonia (Acute) Condition: Improved - Instructions Diet, Activity, Other Instructions: It is recommended you follow up with Dr. Sam within one week of your discharge. Return to the emergency department for any new or worsening symptoms. Referrals: Taqueria Sam MD [Primary Care Provider] - Disposition: HOME - Home Medications Comprehensive Discharge Medication List: Ambulatory Orders Bisacodyl [Dulcolax] 10 mg RC DAILY PRN 06/07/13 Apixaban [Eliquis] 2.5 mg PO BID 05/25/18 Cholecalciferol (Vitamin D3) [Vitamin D3] 1,000 unit PO DAILY 05/25/18 Docusate Sodium [Colace] 100 mg PO DAILY PRN 05/25/18 Metoprolol Succinate [Toprol Xl] 12.5 mg PO BID 05/25/18 Rosuvastatin [Crestor -] 20 mg PO HS 05/25/18 This patient is new to me today: Yes Date on this admission: 05/29/18 Emergency Visit: Yes ED Registration Date: 05/25/18 Care time: The patient presented to the Emergency Department on the above date and was hospitalized for further evaluation of their emergent condition. Critical Care patient: No - Discharge Referral Referred to [facility] Med [facility] Yes Physician Referral: Taqueria Sam MD (Int Med)
== END 2018-05-27 14:15 | disposition home or self-care (01) | DRG 308 ==
LOC: FER 14:40 → FM/S 17:10
PROVIDERS: ADMIT Internal Medicine; ATTEND Nurse Practitioner Acute Care
DX: I48.92 Unspecified atrial flutter (principal); J18.9 Pneumonia, unspecified organism; J44.1 Chronic obstructive pulmonary disease with (acute) exacerbation; I24.8 Other forms of acute ischemic heart disease; E87.3 Alkalosis; I42.8 Other cardiomyopathies; I48.91 Unspecified atrial fibrillation; I10 Essential (primary) hypertension; E78.5 Hyperlipidemia, unspecified; I25.10 Atherosclerotic heart disease of native coronary artery without angina pectoris; Z79.01 Long term (current) use of anticoagulants; I25.2 Old myocardial infarction; I69.322 Dysarthria following cerebral infarction; D64.9 Anemia, unspecified; Z95.1 Presence of aortocoronary bypass graft; J06.9 Acute upper respiratory infection, unspecified; Z95.5 Presence of coronary angioplasty implant and graft
CPT/HCPCS: 36415; 71045-TC-FY; 80048; 80053; 80061; 81003; 81015; 82550; 82553; 82607; 82746; 82803; 82962; 83010; 83540; 83550; 83605; 83615; 83735; 84443; 84484; 85025; 85610; 87040; 87804; 93005; 93306-TC; 97116-GP; 97162-GP; 99285-25; J0131; J7030

== ENCOUNTER 2018-05-31 20:53 | Emergency (ER) | payer OTHER, BC ==
[2018-05-31 21:12] VITALS: TEMP 97.7; BMI 25.1
--- NOTE | 2018-05-31 21:23 | PDOC ---
Attending Attestation - HPI HPI: 05/31/18 23:07 The patient is a 82 year old male with a significant past medical history of afib, cad s/p multiple stents, afib, on eliquis and plavix, prior stroke with speech deficits, who presents to the emergency department today accompanied by daughter complaining of dizziness which is not worse upon exertion. He states he is still able to ambulate but does not feel right when doing so. Patient reports a recent hospitalization last week for high troponin levels. The patient denies chest pain, shortness of breath, and headache. Denies fever, chills, nausea, vomit, diarrhea and constipation. Denies dysuria, frequency, urgency and hematuria. Allergies: NKA Past surgical history: Cardiac bypass with stents. Social history: None reported. - Physicial Exam PE: 05/31/18 23:07 Agree with resident's exam. <Brandi Little - Last Filed: 05/31/18 23:07> - Resident Resident Name: Britton Bueno - ED Attending Attestation I have performed the following: I have examined & evaluated the patient, The case was reviewed & discussed with the resident, I agree w/resident's findings & plan - Medical Decision Making 06/01/18 01:28 82-year-old male with an episode of lightheadedness, now resolved According to daughter the patient's did not eat well today He has a recent admission to the hospital with elevated troponins Patient states on reevaluation at 1:28 AM that he is feeling well would like to go home, he has agreed to a second troponin drawn but would like to go home and be called if the results are concerning He is accompanied by his daughter who agrees with the plan CT scan of the brain showed no acute abnormality Stool guaiac was negative He will follow with his regular physician who has been working up his anemia CVA unlikely due to return to baseline and now steady gait <Marcia Ramires - Last Filed: 06/01/18 01:31> Attestations - Attestations 05/31/18 23:08 Documentation prepared by Brandi Little, acting as medical driver for Marcia Ramires DO. <Brandi Little - Last Filed: 05/31/18 23:07>
[2018-05-31 21:49] LABS: BASO % 0.7 % (0-2.0); EOS % 1.4 % (0-4.5); HEMATOCRIT 24.4 % (35.4-49); LYMPH % 26.2 % (8-40); MCH 26.4 pg (25.7-33.7); MCHC 32.7 g/dl (32.0-35.9); MEAN CELL VOLUME 80.9 fl (80-96); MEAN PLT VOLUME 6.9 fl (7.5-11.1); MONO % 8.7 % (3.8-10.2); PLATELET COUNT 315 K/MM3 (134-434); RBC 3.02 M/mm3 (4.00-5.60); RDW 18.6 % (11.9-15.9); WHITE BLOOD COUNT 5.6 K/mm3 (4.0-10.0)
[2018-05-31 22:10] LABS: INR 1.24 (0.83-1.09); PROTHROMBIN TIME (PATIENT) 14.7 SEC (9.7-13.0)
--- NOTE | 2018-05-31 22:24 | PDOC ---
History of Present Illness - General Chief Complaint: Lethargy Stated Complaint: LETHARGIC Time Seen by Provider: 05/31/18 21:17 History Source: Patient, Family - History of Present Illness Initial Comments: 05/31/18 22:16 Patient is an 82M with history of afib, cad s/p multiple stents, afib, on eliquis and plavix, prior stroke with speech deficits here today complaining of dizziness. He denies any changes with movement, facial droop, changes to speech , arm/leg weakness, fevers, chills, urinary symptoms. Denies trauma. Denies chest pain, abdominal pain and shortness of breath. Patient was recently admitted for afib w/ rvr with positive troponin. Was discharged with a dx of viral illness and no antibiotics. Past History - Past Medical History Allergies/Adverse Reactions: Allergies Allergy/AdvReac Type Severity Reaction Status Date / Time No Known Allergies Allergy Verified 05/31/18 21:12 Home Medications: Ambulatory Orders Bisacodyl [Dulcolax] 10 mg RC DAILY PRN 06/07/13 Apixaban [Eliquis] 2.5 mg PO BID 05/25/18 Cholecalciferol (Vitamin D3) [Vitamin D3] 1,000 unit PO DAILY 05/25/18 Docusate Sodium [Colace] 100 mg PO DAILY PRN 05/25/18 Metoprolol Succinate [Toprol Xl] 12.5 mg PO BID 05/25/18 Rosuvastatin [Crestor -] 20 mg PO HS 05/25/18 Anemia: No Asthma: No Cancer: No Cardiac Disorders: Yes (stents x 9, A-FIB, CAD, SC.) CVA: Yes (01/2013, 08/2013) COPD: No CHF: No DVT: Yes Dementia: No Diabetes: No GI Disorders: No Disorders: No HTN: Yes Hypercholesterolemia: Yes Liver Disease: No Seizures: No Thyroid Disease: No - Surgical History Abdominal Surgery: No Appendectomy: No Cardiac Surgery: Yes (BYPASS/STENTS) Cholecystectomy: No Lung Surgery: No Neurologic Surgery: No Orthopedic Surgery: No - Immunization History Immunization Up to Date: Yes - Suicide/Smoking/Psychosocial Hx Smoking History: Never smoked Have you smoked in the past 12 months: No Number of Cigarettes Smoked Daily: 0 Cigars Per Day: 0 Information on smoking cessation initiated: No Hx Alcohol Use: No Drug/Substance Use Hx: No Substance Use Type: None Hx Substance Use Treatment: No Review of Systems - Review of Systems Comments:: 05/31/18 22:24 GENERAL/CONSTITUTIONAL: No fever or chills. No weakness. HEAD, EYES, EARS, NOSE AND THROAT: No change in vision. No ear pain or discharge. No sore throat. CARDIOVASCULAR: No chest pain or shortness of breath RESPIRATORY: No cough, wheezing, or hemoptysis. GASTROINTESTINAL: No nausea, vomiting, diarrhea or constipation. GENITOURINARY: No dysuria, frequency, or change in urination. MUSCULOSKELETAL: No joint or muscle swelling or pain. No neck or back pain. SKIN: No rash NEUROLOGIC: No headache, +vertigo, no loss of consciousness, or change in strength/sensation. ENDOCRINE: No increased thirst. No abnormal weight change HEMATOLOGIC/LYMPHATIC: No anemia, easy bleeding, or history of blood clots. ALLERGIC/IMMUNOLOGIC: No hives or skin allergy. *Physical Exam - Vital Signs Last Vital Signs Temp Pulse Resp BP Pulse Ox 97.7 F 81 20 134/77 97 05/31/18 20:53 05/31/18 20:53 05/31/18 20:53 05/31/18 20:53 05/31/18 20:53 - Physical Exam Comments: 05/31/18 22:28 GENERAL: Awake, alert, and fully oriented, in no acute distress HEAD: No signs of trauma, normocephalic, atraumatic EYES: PERRLA, EOMI, sclera anicteric, conjunctiva clear ENT: Auricles normal inspection, hearing grossly normal, nares patent, oropharynx clear without exudates. Moist mucosa NECK: Normal ROM, supple, no lymphadenopathy, JVD, or masses LUNGS: No distress, speaks full sentences, clear to auscultation bilaterally HEART: Regular rate and rhythm, normal S1 and S2, no murmurs, rubs or gallops, peripheral pulses normal and equal bilaterally. ABDOMEN: Soft, nontender, normoactive bowel sounds. No guarding, no rebound. No masses EXTREMITIES: Normal inspection, Normal range of motion, no edema. No clubbing or cyanosis. NEUROLOGICAL: Cranial nerves II through XII grossly intact. Difficult to understand speech, no focal sensorimotor deficits, NIHSS 0 SKIN: Warm, Dry, normal turgor, no rashes or lesions noted. Moderate Sedation - Procedure Monitoring Vital Signs: Procedure Monitoring Vital Signs Temperature 97.7 F 05/31/18 20:53 Pulse Rate 81 05/31/18 20:53 Respiratory Rate 20 05/31/18 20:53 Blood Pressure 134/77 05/31/18 20:53 O2 Sat by Pulse Oximetry (%) 97 05/31/18 20:53 ED Treatment Course - LABORATORY CBC & Chemistry Diagram: 05/31/18 21:41 05/31/18 21:41 - ADDITIONAL ORDERS Additional order review: Laboratory Results 05/31/18 21:41 PT with INR 14.70 H INR 1.24 H 05/31/18 21:41 RBC 3.02 L MCV 80.9 MCHC 32.7 RDW 18.6 H MPV 6.9 L Neutrophils % 63.0 Lymphocytes % 26.2 D Monocytes % 8.7 Eosinophils % 1.4 Basophils % 0.7 - RADIOLOGY Radiology Studies Ordered: Category Date Time Status HEAD CT WITHOUT CONTRAST [CT] Stat CT Scan 05/31/18 21:30 Ordered CHEST X-RAY PORTABLE* [RAD] Stat Radiology 05/31/18 21:28 Ordered Medical Decision Making - Medical Decision Making 05/31/18 22:29 Patient is 82M with history of CVA, HTN, HLD, CAD, afib on eliquis and plavix here today with dizziness. Vitals normal and stable. Concern for posterior circulation stroke. NIHSS 0. Will evaluate with cbc, cmp, trop, ekg, pt/inr, cxr , head ct and admit. 06/01/18 02:27 CBC, CMP, normal. Trop 0.08, significantly down from prior visit. CT head normal. CXR unremarkable. Repeat trop zero. Patient requesting to go home. States he will follow up with PCP Flaco. Second trop stable. States he is no longer dizzy. Given return precautions. *DC/Admit/Observation/Transfer Diagnosis at time of Disposition: Dizziness - Discharge Dispostion Disposition: HOME Condition at time of disposition: Fair Decision to Admit order: No - Referrals Referrals: Taqueria Sam MD [Primary Care Provider] - - Patient Instructions Printed Discharge Instructions: DI for Dizziness-Nonvertigo Additional Instructions: Please follow up with your primary care doctor tomorrow. Please return if you have any new, worsening or concerning symptoms, especially increasing dizziness, chest pain and shortness of breath. - Post Discharge Activity
[2018-05-31 22:48] LABS: ALBUMIN 3.4 g/dl (3.4-5.0); ALK PHOS 57 U/L (45-117); ANION GAP 5 MMOL/L (8-16); BILIRUBIN,TOTAL 0.2 mg/dL (0.2-1); BLOOD UREA NITROGEN 14 mg/dL (7-18); CALCIUM 8.2 mg/dL (8.5-10.1); CHLORIDE 107 mmol/L (98-107); CO2 29 mmol/L (21-32); CREATININE 0.8 mg/dL (0.55-1.3); GLUCOSE,RANDOM 100 mg/dL (74-106); MAGNESIUM 2.1 mg/dL (1.8-2.4); POTASSIUM 3.5 mmol/L (3.5-5.1); SGOT/AST 19 U/L (15-37); SGPT/ALT 17 U/L (13-61); SODIUM 140 mmol/L (136-145); TOT PROT 6.6 g/dl (6.4-8.2)
[2018-06-01 03:17] VITALS: BP 132/76; PULSE 80
--- NOTE | 2018-06-01 14:15 | EKG ---
Test Reason : Blood Pressure : / mmHG Vent. Rate : 069 BPM Atrial Rate : 066 BPM P-R Int : 000 ms QRS Dur : 092 ms QT Int : 418 ms P-R-T Axes : 000 044 -52 degrees QTc Int : 447 ms POOR DATA QUALITY, INTERPRETATION MAY BE ADVERSELY AFFECTED ATRIAL FIBRILLATION WITH PREMATURE VENTRICULAR OR ABERRANTLY CONDUCTED COMPLEXES NONSPECIFIC ST AND T WAVE ABNORMALITY ABNORMAL ECG WHEN COMPARED WITH ECG OF 25-MAY-2018 14:59, ATRIAL FIBRILLATION HAS REPLACED ATRIAL FLUTTER VENT. RATE HAS DECREASED BY 64 BPM Confirmed by MANDI GANDARA MD ([id number]) on 06/01/2018 2:15:26 PM Referred By: Confirmed By:MANDI GANDARA MD
== END 2018-06-01 03:17 | disposition home or self-care (01) ==
LOC: JER 20:53
DX: R42 Dizziness and giddiness (principal); I10 Essential (primary) hypertension; E78.5 Hyperlipidemia, unspecified; I48.91 Unspecified atrial fibrillation; I25.10 Atherosclerotic heart disease of native coronary artery without angina pectoris; I25.2 Old myocardial infarction; I69.328 Other speech and language deficits following cerebral infarction; Z95.5 Presence of coronary angioplasty implant and graft; Z79.01 Long term (current) use of anticoagulants; Z86.718 Personal history of other venous thrombosis and embolism
CPT/HCPCS: 36415; 70450-TC; 71045-TC-FY; 80053; 82272; 82550; 83735; 84484; 85025; 85610; 93005; 93010; 99283-25

== ENCOUNTER 2019-03-11 16:23 | Inpatient (IN) | payer OTHER, BC ==
--- NOTE | 2019-03-11 17:19 | PDOC ---
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 Patient presents with daughter at bedside who is healthcare proxy and who takes care of him at home. Patient and daughter report that patient has been feeling weak for the last few days, normally able to ambulate without issue but has needed assistance recently. Normally constipated on Miralax, but having loose stools for the last few days with maroon-colored stools mixed in. No history of hemorrhoids, no history of prior rectal bleeding, denies straining to have BM. Denies SOB, chest pain, palpitations, dizziness, abdominal pain. No other family at home sick, denies fever/chills/nausea/vomiting. No recent travel or environmental exposure. Unknown if has had prior EGD/colonoscopy, denies weight loss or loss of appetite, eating well today before coming to ED. Never had a transfusion in the past, has chronic anemia, supposed to be on iron supplement but non-compliant. Past History - Past Medical History Allergies/Adverse Reactions: Allergies Allergy/AdvReac Type Severity Reaction Status Date / Time No Known Allergies Allergy Verified 03/11/19 16:29 Home Medications: Ambulatory Orders Bisacodyl [Dulcolax] 10 mg RC DAILY PRN 06/07/13 Apixaban [Eliquis] 2.5 mg PO BID 05/25/18 Cholecalciferol (Vitamin D3) [Vitamin D3] 1,000 unit PO DAILY 05/25/18 Docusate Sodium [Colace] 100 mg PO DAILY PRN 05/25/18 Metoprolol Succinate [Toprol Xl] 12.5 mg PO BID 05/25/18 Rosuvastatin [Crestor -] 20 mg PO HS 05/25/18 Iron/C/Folate 6/B12/Zn/Stomach [Chromagen Softgel] 1 each PO DAILY #30 capsule 03/13/19 Anemia: No Asthma: No Cancer: No Cardiac Disorders: Yes (stents x 9, A-FIB, CAD, AR.) CVA: Yes (01/2013, 08/2013) COPD: No CHF: No DVT: Yes Dementia: No Diabetes: No GI Disorders: No Disorders: No HTN: Yes Hypercholesterolemia: Yes Liver Disease: No Seizures: No Thyroid Disease: No - Surgical History Abdominal Surgery: No Appendectomy: No Cardiac Surgery: Yes (BYPASS/STENTS) Cholecystectomy: No Lung Surgery: No Neurologic Surgery: No Orthopedic Surgery: No - Immunization History Immunization Up to Date: Yes - Psycho Social/Smoking Cessation Hx Smoking History: Never smoked Have you smoked in the past 12 months: No Number of Cigarettes Smoked Daily: 0 Cigars Per Day: 0 Hx Alcohol Use: No Drug/Substance Use Hx: No Substance Use Type: None Hx Substance Use Treatment: No Review of Systems - Review of Systems Able to Perform ROS?: Yes Constitutional: Yes: Weakness. No: Chills, Fever, Loss of Appetite HEENTM: No: Symptoms Reported Respiratory: No: Cough, Shortness of Breath Cardiac (ROS): No: Chest Pain, Irregular Heart Rate, Lightheadedness, Palpitations, Syncope ABD/GI: Yes: Blood Streaked Bowels. No: Constipated, Diarrhea, Nausea, Poor Appetite, Poor Fluid Intake, Vomiting : No: Symptoms Reported Musculoskeletal: Yes: Muscle Weakness (difficulty walking 3 days) Integumentary: No: Symptoms Reported Neurological: No: Symptoms reported Endocrine: Yes: Unexplained Weight Loss Hematologic/Lymphatic: Yes: Anemia All Other Systems: Reviewed and Negative *Physical Exam - Vital Signs Last Vital Signs Temp Pulse Resp BP Pulse Ox 98 F 63 18 130/41 L 100 03/11/19 16:26 03/11/19 16:26 03/11/19 16:26 03/11/19 16:26 03/11/19 16:26 - Physical Exam General Appearance: Yes: Nourished, Appropriately Dressed, Cachetic. No: Apparent Distress HEENT: positive: EOMI, ELVI, Normal Voice, Symmetrical, Hearing Grossly Normal. negative: Pharynx Normal (dry oropharynx), Scleral Icterus (R), Scleral Icterus (L) Neck: positive: Normal Thyroid, Supple. negative: Tender, Rigid, Lymphadenopathy (R), Lymphadenopathy (L) Respiratory/Chest: positive: Lungs Clear, Normal Breath Sounds. negative: Chest Tender, Respiratory Distress, Accessory Muscle Use, Crackles, Rales, Rhonchi, Stridor, Wheezing Cardiovascular: positive: Regular Rhythm, Regular Rate Gastrointestinal/Abdominal: positive: Normal Bowel Sounds, Flat, Soft. negative : Tender, Organomegaly, Guarding, Rebound Rectal Exam: positive: normal exam, heme positive stool, other (no evidence of hemorrhoids or fissue, no red blood, stool loose and brown). negative: NL Prostate (enlarged), melena, decreased tone Musculoskeletal: positive: Normal Inspection. negative: CVA Tenderness Extremity: positive: Normal Capillary Refill, Normal Inspection, Normal Range of Motion, Pelvis Stable. negative: Tender, Pedal Edema, Swelling Integumentary: positive: Normal Color, Dry, Warm Neurologic: positive: director surgical II-XII NML intact, Fully Oriented, Alert, Normal Mood/ Affect, Normal Response. 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 Presentation concerning for acute LGIB, ddx incudes diverticular bleed vs. AVM vs. colon CA vs. hemorrhoids. Patient has stable VS, mentating appropriately, has no new concerning history of physical exam findings for AR vs. CVA. Rectal exam unremarkable, no evidence of acute bleeding or hemorrhoids. ECG shows sinus bradycardia with 1st degree AV block, HR 57, AR 250, QRS 104, QTc 428, no ischemic changes or TWI Evaluating via: CMP CBC CP Coags ECG CXR FOBT 03/11/19 18:16 Labs notable for: - Hgb 5.8: ordering 2 units PRBCs, transfusion consent obtained from HCP at bedside - trop <0.02 CXR unremarkable for acute pulmonary or cardiac pathology. Orthostatics negative for hypotension. 03/11/19 19:04 Patient re-evaluated, stable and comfortably resting in bed. Requires admission for further evaluation of LGIB and monitoring of acute anemia , will consult GI. 03/11/19 19:[address] Woodard with GI, recommends contacting PMD for last colo history and status of anemia workup, 40mg Protonix qd, hold Eliquis/Plavix , NPO after midnight, and to admit to tele. 03/11/19 20:40 Patient signed out to Dr. Mccullough with hospitalist team, good for admission to tele under Dr. Zamora. Discharge - Discharge Information Problems reviewed: Yes Clinical Impression/Diagnosis: Weakness Anemia Qualifiers: Anemia type: iron deficiency Iron deficiency anemia type: chronic blood loss Qualified Code(s): D50.0 - Iron deficiency anemia secondary to blood loss ( chronic) Condition: Stable - Admission Yes - Follow up/Referral - Patient Discharge Instructions - Post Discharge Activity
[2019-03-11 17:32] LABS: BASO % 1.1 % (0-2.0); LYMPH % 30.4 % (8-40); MCHC 29.3 g/dl (32.0-35.9); MEAN CELL VOLUME 71.6 fl (80-96); MEAN PLT VOLUME 7.8 fl (7.5-11.1); MONO % 10.3 % (3.8-10.2); NEUT % 57.2 % (42.8-82.8); PLATELET COUNT 270 K/MM3 (134-434); RBC 2.77 M/mm3 (4.00-5.60); RDW 20.8 % (11.9-15.9); WHITE BLOOD COUNT 4.1 K/mm3 (4.0-10.0)
[2019-03-11 17:40] LABS: HEMOGLOBIN 5.8 GM/dL (11.7-16.9)
[2019-03-11 17:41] LABS: HEMATOCRIT 19.9 % (35.4-49)
[2019-03-11 17:45] LABS: INR 1.21 (0.83-1.09); PROTHROMBIN TIME (PATIENT) 14.3 SEC (9.7-13.0)
[2019-03-11 17:47] LABS: ACTIVATED PTT 30.4 SECONDS (25.2-36.5)
[2019-03-11 18:08] LABS: ALBUMIN 3.2 g/dl (3.4-5.0); BILIRUBIN,TOTAL 0.3 mg/dL (0.2-1); CALCIUM 8.3 mg/dL (8.5-10.1); CREATININE 0.9 mg/dL (0.55-1.3); MAGNESIUM 2.1 mg/dL (1.8-2.4); PHOSPHOROUS 3.2 mg/dL (2.5-4.9); POTASSIUM 3.6 mmol/L (3.5-5.1); TOT PROT 6.2 g/dl (6.4-8.2)
[2019-03-11] MEDS ORDERED: PANTOPRAZOLE SODIUM 40 MG VIAL IVPUSH ONE ×2 (18:59→19:32)
--- NOTE | 2019-03-11 19:14 | PDOC ---
Documentation entered by Nury Zavala SCRIBE, acting as scribe for Roselia Jarquin MD. Roselia Jarquin MD: This documentation has been prepared by the elkinibe, Nury Zavala SCRIBE, under my direction and personally reviewed by me in its entirety. I confirm that the documentation accurately reflects all work, treatment, procedures, and medical decision making performed by me. Attending Attestation - Resident Resident Name: Eric Perry - ED Attending Attestation I have performed the following: I have examined & evaluated the patient, The case was reviewed & discussed with the resident, I agree w/resident's findings & plan, Exceptions are as noted - HPI HPI: 03/11/19 17:54 The patient is an 83 year old male with a past medical history significant for Afib (on Eliquis and plavix), CAD s/p 2 stents, s/p CABG, prior stroke x2 w/ residual speech deficits who presents to the emergency department with blood in the stool. - Physicial Exam PE: 03/11/19 19:[address] Reyes's physical exam - Medical Decision Making 03/11/19 19:0 83-year-old male p/w blood in his stool Past medical history significant for A. fib on Eliquis, status post CVA , hypertension, coronary artery disease with multiple stents placed, CABG and cardiomyopathy with a low ejection fraction 03/11/19 19:07 Obtaining the medical history is difficult because the patient's dysarthria following his strokes. His daughter is bedside in the emergency department and history was obtained with speaking to both of them. 03/11/19 19:50 She has a hemoglobin less than 6 and will be admitted for blood transfusions, stool Hemoccults positive, PPI written for, GI consult and telemetry admission
[2019-03-11] MEDS ORDERED: PANTOPRAZOLE SODIUM 40 MG VIAL ONE (19:18)
[2019-03-11 19:31] LABS: ANISOCYTOSIS 2+; MACROCYTOSIS 0; OVALOCYTE 1+; PLATELET ESTIMATE NORMAL; TEAR DROP CELLS 1+
--- NOTE | 2019-03-11 20:19 | PN ---
Teaching Attending Note Name of Resident: Rachel Mccullough ATTENDING PHYSICIAN STATEMENT I saw and evaluated the patient. I reviewed the resident's note and discussed the case with the resident. I agree with the resident's findings and plan as documented. SUBJECTIVE: Patient is an 83 year old man with PMH of Diverticulosis, Afib (on Eliquis and Plavix), CAD s/p stents and CABG, CVA (X2) with residual speech deficits and right-sided weakness presenting with 3 days of weakness and melena. Patient presents with daughter at bedside who is healthcare proxy and who takes care of him at home. Patient and daughter report that patient has been feeling weak for the last few days, normally able to ambulate without issue but has needed assistance recently. Normally takes Miralax for constipation, but now having loose stools for the last few days with maroon-colored stools mixed in. No history of hemorrhoids, no history of prior rectal bleeding, denies straining to have BM. Denies SOB, chest pain, palpitations, dizziness, abdominal pain. No other family member at home is sick. Denies fever, chills, nausea or vomiting. No recent travel or environmental exposure. Unknown if has had prior EGD/ colonoscopy. Denies weight loss or loss of appetite. Has chronic anemia and never been transfused. Nonadherent with prescribed oral iron supplement. Denies tobacco alcohol or illicit drug use. OBJECTIVE: Alert and not orthostatic Vital Signs Period Temp Pulse Resp BP Sys/Greer Pulse Ox Last 24 Hr 98 F 58-74 18 130-133/41-84 100-100 HEENT: No Jaundice, eye redness or discharge, +Conjunctival pallor; PERRLA, EOMI. Normocephalic, atraumatic. External ears are normal and hearing is grossly intact. No nasal discharge. Neck: Supple, nontender. No palpable adenopathy or thyromegaly. No JVD Chest: Good effort. Clear to auscultation and percussion. Heart: Regular. No S3, rub or murmur Abdomen: Not distended, soft, nontender and no HSM. No rebound or guarding. Normal bowel sounds. NANO reveals guaiac positive stool. Ext: Peripheral pulses intact. No leg edema. Skin: Warm and dry. No petechiae, rash or ecchymosis. Neuro: Alert. Oriented x3. Dysarthria; CN 2-12 grossly intact. Sensation grossly intact in all four extremities; right hemiparesis. Psych: Appropriate mood and affect. Good insight. Home Medications Medication Instructions Recorded Bisacodyl [Dulcolax] 10 mg RC DAILY PRN 06/07/13 Apixaban [Eliquis] 2.5 mg PO BID 05/25/18 Cholecalciferol (Vitamin D3) 1,000 unit PO DAILY 05/25/18 [Vitamin D3] Docusate Sodium [Colace] 100 mg PO DAILY PRN 05/25/18 Metoprolol Succinate [Toprol Xl] 12.5 mg PO BID 05/25/18 Rosuvastatin [Crestor -] 20 mg PO HS 05/25/18 Abnormal Lab Results 03/11/19 03/11/19 03/11/19 17:13 17:13 17:13 RBC 2.77 L Hgb 5.8 L* Hct 19.9 L D MCV 71.6 L MCH 21.0 L D MCHC 29.3 L RDW 20.8 H Monocytes % 10.3 H PT with INR 14.30 H INR 1.21 H Chloride Anion Gap Calcium ALT Total Protein Albumin Crossmatch See Detail 03/11/19 17:13 RBC Hgb Hct MCV MCH MCHC RDW Monocytes % PT with INR INR Chloride 108 H Anion Gap 4 L Calcium 8.3 L ALT 10 L Total Protein 6.2 L Albumin 3.2 L Crossmatch ASSESSMENT AND PLAN: 1. GI bleeding/Low MCV anemia - Abdomen/pelvis CT in 11/2018 showed possible mass in the descending colon. No acute abnormality on CXR. EKG shows sinus bradycardia with Io AV block and nonspecific ST-T wave changes. Urinalysis pending. Being transfused PRBC and will benefit from IV iron subsequently. Will hold eliquis, but continue plavix for now because of the risk of clotting in his multiple stents - will consult cardiology about continuing/holding plavix. Keep NPO, give IV protonix and consult GI - may need colonoscopy to investigate ?colonic mass. Will continue comprehensive care for all of patients comorbid conditions. 2. Hypoalbuminemia - Possibly due to combined effects of malnutrition and inflammation associated with comorbid chronic conditions. Will ensure adequate dietary protein intake and also consult coil winding supervisor. 3. DVT prophylaxis - SCD 4. Advance directives - DNR/DNI
[2019-03-11] MEDS ORDERED: ACETAMINOPHEN 325 MG TABLET (FP) PO PRN (22:22)
--- NOTE | 2019-03-11 22:43 | HP ---
CHIEF COMPLAINT: multiple episodes of maroon colored stool and generalized weakness PCP: Dr Sam HISTORY OF PRESENT ILLNESS: 83 y/o male with PMH of diverticulosis (diagnosed 20 years ago), Afib on Eliquis and Plavix (diagnosed 1.5 years ago), Iron deficiency anemia (diagnosed October, non compliant with iron supplements due to constipation) CAD (status post multiple stents, CABG 1989 and 1990), 2 CVAs (2005 and 2012) with residual dysarthria and right sided weakness, presented to the ED with complaints of 4 episodes of loose, maroon colored stools for 3 days including this morning. Patient and daughter report that patient has been feeling weak for the last few days as well;normally able to ambulate without issue but has needed assistance recently. Normally pt suffers from constipation (on Miralax), but stopped it due to loose stools for the last few days with maroon-colored stools mixed in. Patient denies headache, lightheadedness,LOC, nausea, vomiting, chest pain, palpitations, SOB,or abdominal pain. No history of hemorrhoids, prior rectal bleeding, abnormal EGD/colonoscopy (last one over 5 years ago), straining to have BM, GERD, NSAIDs use. Pt also admits to not taking his iron supplements due to experiencing constipation as a side effect. Per daughter, pt has been losing weight the last few years due to decreased food intake. Of note, pt had a CT abdomen in July 2018 which revealed bulky appearance of the distal descending colon where a mass could not be ruled out. Pt did not follow up CT findings with another colonoscopy. Echo done in May 2018, revealed mild valvular disease with EF of 45- 50%. ER course was notable for: (1) VSS,CBC with anemia 5.8/19.9, CMP with hypoalbuminemia, PT/INR/PTT 14.3/1.21 /30.4, trop neg x1 (2) CXR neg for acute path, protonix (3) stool occult blood positive, 1 active PRBC transfusion pending second one Recent Travel: denies PAST MEDICAL HISTORY: as above PAST SURGICAL HISTORY: as above Social History: poor oral intake for the past couple of years or so with steady decline in weight Smoking: denies Alcohol: denies Drugs: denies Allergies No Known Allergies Allergy (Verified 03/11/19 16:29) HOME MEDICATIONS: Home Medications Medication Instructions Recorded Bisacodyl [Dulcolax] 10 mg RC DAILY PRN 06/07/13 Apixaban [Eliquis] 2.5 mg PO BID 05/25/18 Cholecalciferol (Vitamin D3) 1,000 unit PO DAILY 05/25/18 [Vitamin D3] Docusate Sodium [Colace] 100 mg PO DAILY PRN 05/25/18 Metoprolol Succinate [Toprol Xl] 12.5 mg PO BID 05/25/18 Rosuvastatin [Crestor -] 20 mg PO HS 05/25/18 REVIEW OF SYSTEMS CONSTITUTIONAL: generalized weakness, malaise Absent: fever, chills, diaphoresis, loss of appetite, weight change HEENT: Absent: rhinorrhea, nasal congestion, throat pain, throat swelling, difficulty swallowing, mouth swelling, ear pain, eye pain, visual changes CARDIOVASCULAR: Absent: chest pain, syncope, palpitations, irregular heart rate, lightheadedness , peripheral edema RESPIRATORY: Absent: cough, shortness of breath, dyspnea with exertion, orthopnea, wheezing, stridor, hemoptysis GASTROINTESTINAL: melena Absent: abdominal pain, abdominal distension, nausea, vomiting, diarrhea, constipation, hematochezia GENITOURINARY: Absent: dysuria, frequency, urgency, hesitancy, hematuria, flank pain, genital pain MUSCULOSKELETAL: Absent: myalgia, arthralgia, joint swelling, back pain, neck pain SKIN: Absent: rash, itching, pallor HEMATOLOGIC/IMMUNOLOGIC: Absent: easy bleeding, easy bruising, lymphadenopathy, frequent infections ENDOCRINE: Absent: unexplained weight gain, unexplained weight loss, heat intolerance, cold intolerance NEUROLOGIC: Absent: headache, focal weakness or paresthesias, dizziness, unsteady gait, seizure, mental status changes, bladder or bowel incontinence PSYCHIATRIC: Absent: anxiety, depression, suicidal or homicidal ideation, hallucinations. PHYSICAL EXAMINATION Vital Signs - 24 hr 03/11/19 03/11/19 03/11/19 16:25 16:26 17:23 Temperature 98 F Pulse Rate 63 Pulse Rate [ 64 Left side Sitting] Pulse Rate [ 74 Left side Standing] Pulse Rate [ 58 L Left side Supine] Pulse Rate [ Left] Respiratory 18 Rate Blood Pressure 130/41 L Blood Pressure [Left Arm] Blood Pressure 130/52 L [Left side Sitting] Blood Pressure 133/84 [Left side Standing] Blood Pressure 130/57 L [Left side Supine] O2 Sat by Pulse 100 100 Oximetry (%) 03/11/19 03/11/19 20:10 20:25 Temperature 98.3 F 98.2 F Pulse Rate Pulse Rate [ Left side Sitting] Pulse Rate [ Left side Standing] Pulse Rate [ Left side Supine] Pulse Rate [ 53 L 57 L Left] Respiratory 18 18 Rate Blood Pressure Blood Pressure 150/64 135/59 L [Left Arm] Blood Pressure [Left side Sitting] Blood Pressure [Left side Standing] Blood Pressure [Left side Supine] O2 Sat by Pulse 97 97 Oximetry (%) GENERAL: Awake, alert, and fully oriented, in no acute distress. HEAD: Normal with no signs of trauma. EYES: Pupils equal, round and reactive to light, extraocular movements intact, sclera anicteric, conjunctiva pallor. No lid lag. EARS, NOSE, THROAT: oropharynx clear without exudates. Moist mucous membranes with pallor. NECK: Normal range of motion, supple without lymphadenopathy, JVD, or masses. LUNGS: Breath sounds equal, clear to auscultation bilaterally. No wheezes, and no crackles. No accessory muscle use. HEART: Regular rate and rhythm, normal S1 and S2 without murmur, rub or gallop. ABDOMEN: Soft, nontender, not distended, normoactive bowel sounds, no guarding, no rebound, no masses. No hepatomegaly or splenomegaly. MUSCULOSKELETAL: Normal range of motion at all joints. No bony deformities or tenderness. No CVA tenderness. UPPER EXTREMITIES: 2+ pulses, warm, well-perfused. No cyanosis. No clubbing. No peripheral edema. LOWER EXTREMITIES: 2+ pulses, warm, well-perfused. No calf tenderness. No peripheral edema. NEUROLOGICAL: Cranial nerves II-XII intact. chronic dysarthric speech. residual right sided weakness more significant on right upper extremity from prior CVA PSYCHIATRIC: Cooperative. Good eye contact. Appropriate mood and affect. SKIN: Warm, dry, normal turgor, no rashes or lesions noted, normal capillary refill. Laboratory Results - last 24 hr 03/11/19 03/11/19 03/11/19 17:13 17:13 17:13 WBC 4.1 RBC 2.77 L Hgb 5.8 L* Hct 19.9 L D MCV 71.6 L MCH 21.0 L D MCHC 29.3 L RDW 20.8 H Plt Count 270 MPV 7.8 D Absolute Neuts (auto) 2.3 Neutrophils % 57.2 Lymphocytes % 30.4 Monocytes % 10.3 H Eosinophils % 1.0 Basophils % 1.1 Nucleated RBC % 0 Hypochromia 2+ Platelet Estimate Normal Platelet Comment Giant platelets Poikilocytosis 1+ Anisocytosis 2+ Microcytosis 2+ Macrocytosis 0 Tear Drop Cells 1+ Ovalocytes 1+ [place]onda Cells 1+ Schistocytes 1+ PT with INR 14.30 H INR 1.21 H PTT (Actin FS) 30.4 Sodium Potassium Chloride Carbon Dioxide Anion Gap BUN Creatinine Est GFR (CKD-EPI)AfAm Est GFR (CKD-EPI)NonAf Random Glucose Calcium Phosphorus Magnesium Total Bilirubin AST ALT Alkaline Phosphatase Creatine Kinase Troponin I Total Protein Albumin Stool Occult Blood Blood Type AB POSITIVE Antibody Screen Negative Crossmatch See Detail 03/11/19 03/11/19 17:13 17:41 WBC RBC Hgb Hct MCV MCH MCHC RDW Plt Count MPV Absolute Neuts (auto) Neutrophils % Lymphocytes % Monocytes % Eosinophils % Basophils % Nucleated RBC % Hypochromia Platelet Estimate Platelet Comment Poikilocytosis Anisocytosis Microcytosis Macrocytosis Tear Drop Cells Ovalocytes Schuyler Cells Schistocytes PT with INR INR PTT (Actin FS) Sodium 139 Potassium 3.6 Chloride 108 H Carbon Dioxide 27 Anion Gap 4 L BUN 12.0 Creatinine 0.9 Est GFR (CKD-EPI)AfAm 90.58 Est GFR (CKD-EPI)NonAf 78.15 Random Glucose 102 Calcium 8.3 L Phosphorus 3.2 Magnesium 2.1 Total Bilirubin 0.3 AST 16 ALT 10 L Alkaline Phosphatase 67 Creatine Kinase 52 Troponin I 0.02 Total Protein 6.2 L Albumin 3.2 L Stool Occult Blood Positive Blood Type Antibody Screen Crossmatch ASSESSMENT/PLAN: 83 y/o DNR/DNI male with PMH of diverticulosis, Afib on Eliquis and Plavix , Iron deficiency anemia (diagnosed October, non compliant with iron supplements due to constipation) CAD (status post multiple stents, CABG), 2 CVAs with residual dysarthria and right sided weakness, presented to the ED with complaints of 4 episodes of loose, maroon colored stools for 3 days including this morning. Admitted for GI bleeding Upper vs Lower Painless GI bleeding poss due to diverticulosis/mass/ upper GI source pt has prior hx of diverticulosis ( painless supports it ), descending colon bulking on recent imaging w/o further w/u poss malignancy, maroon colored stool support possible upper GI but BUN normal for now. Stool occult blood positive currently hemodynamically stable. 2 Large bore IV access in place gental hydration at NS@42cc/hr monitor vital signs Q4h CBC 5.8/19.9 last document CBC noted to be 7.4 on 07/24/18 currently receiving 1 unit PRBC with pending second unit; if still less than 8 will consider 3rd unit monitor CBC closely Holding eliquis now; continue plavix for now as pt has extensive cardiac hx with over 6-7 stents over the years Cardio Dr Hale consulted for rec about plavix continuation/hold NPO IV protonix [address] Fallon consulted and also recommends contacting PMD for last colonoscopy history and status of anemia workup serial abdominal exams Generalized weakness poss due advanced untreated iron deficiency anemia and recent drop in Hb baseline residual deficit from previous CVA. right sided weakness in UE and dysarthria fall precaution PT ordered Iron def anemia started PRBCs in ED already consider sending iron study later on if low IV treatment recommended CAD cont plavix for now until cardio recommendations AFIb holding eliquis for now FEN NS@42 NPO monitor lytes DVT SCDs no AC for now Visit type - Emergency Visit Emergency Visit: Yes ED Registration Date: 03/11/19 Care time: The patient presented to the Emergency Department on the above date and was hospitalized for further evaluation of their emergent condition. - New Patient This patient is new to me today: Yes Date on this admission: 03/12/19 - Critical Care Critical Care patient: No Total Critical Care Time (in minutes): 35 Critical Care Statement: The care of this patient involved high complexity decision making to prevent further life threatening deterioration of the patient 's condition and/or to evaluate & treat vital organ system(s) failure or risk of failure. ATTENDING PHYSICIAN STATEMENT I saw and evaluated the patient. I reviewed the resident's note and discussed the case with the resident. I agree with the resident's findings and plan as documented. SUBJECTIVE: OBJECTIVE: ASSESSMENT AND PLAN:
[2019-03-11] MEDS: SODIUM CHLORIDE 1,000 ML IV SCH (23:30)
[2019-03-12 07:40] LABS: BASO % 1.5 % (0-2.0); HEMATOCRIT 26.8 % (35.4-49); HEMOGLOBIN 8.5 GM/dL (11.7-16.9); LYMPH % 28.5 % (8-40); MCH 23.8 pg (25.7-33.7); MCHC 31.6 g/dl (32.0-35.9); MEAN CELL VOLUME 75.2 fl (80-96); MEAN PLT VOLUME 7.4 fl (7.5-11.1); MONO % 9.3 % (3.8-10.2); NEUT % 58.7 % (42.8-82.8); PLATELET COUNT 232 K/MM3 (134-434); RBC 3.56 M/mm3 (4.00-5.60); RDW 21.3 % (11.9-15.9); WHITE BLOOD COUNT 4.5 K/mm3 (4.0-10.0)
[2019-03-12 08:07] LABS: ALBUMIN 3.1 g/dl (3.4-5.0); BILIRUBIN,TOTAL 1.3 mg/dL (0.2-1); BLOOD UREA NITROGEN 11.8 mg/dL (7-18); CALCIUM 8.9 mg/dL (8.5-10.1); CREATININE 0.8 mg/dL (0.55-1.3); MAGNESIUM 2.2 mg/dL (1.8-2.4); PHOSPHOROUS 3.5 mg/dL (2.5-4.9); TOT PROT 5.8 g/dl (6.4-8.2)
[2019-03-12 08:19] VITALS: BMI 17.2
[2019-03-12 09:28] LABS: URINE APPEARANCE CLEAR; URINE BILIRUBIN NEGATIVE (NEGATIVE); URINE COLOR YELLOW; URINE GLUCOSE (UA) NEGATIVE (NEGATIVE); URINE KETONE NEGATIVE (NEGATIVE); URINE LEUK ESTERASE NEGATIVE (NEGATIVE); URINE NITRITE NEGATIVE (NEGATIVE); URINE PROTEIN NEGATIVE (NEGATIVE)
[2019-03-12] MEDS: PANTOPRAZOLE SODIUM 40 MG VIAL IVPUSH SCH (09:29)
--- NOTE | 2019-03-12 09:30 | PN ---
Teaching Attending Note Name of Resident: Lilian Choi ATTENDING PHYSICIAN STATEMENT I saw and evaluated the patient. I reviewed the resident's note and discussed the case with the resident. I agree with the resident's findings and plan as documented. SUBJECTIVE: Patient feels better, denies any bloody stool. OBJECTIVE: Vital Signs Temperature 97.5 F L 03/12/19 06:00 Pulse Rate 59 L 03/12/19 06:00 Respiratory Rate 18 03/12/19 06:00 Blood Pressure 148/69 03/12/19 06:00 O2 Sat by Pulse Oximetry (%) 100 03/12/19 03:30 GENERAL: The patient is awake, alert, and fully oriented, in no acute distress. HEAD: Normal with no signs of trauma. EYES: PERRL, extraocular movements intact, sclera anicteric, conjunctiva clear. ENT: Ears normal, oropharynx clear without exudates, moist mucous membranes. NECK: Trachea midline, full range of motion, supple. LUNGS: Breath sounds equal, clear to auscultation bilaterally, no wheezes, no crackles, no accessory muscle use. HEART: Regular rate and rhythm, S1, S2 without murmur, rub or gallop. ABDOMEN: Soft, nontender, nondistended, normoactive bowel sounds, no guarding, no rebound, no hepatosplenomegaly, no masses. EXTREMITIES: 2+ pulses, warm, well-perfused, no edema. NEUROLOGICAL: Cranial nerves II through XII grossly intact. Normal speech, gait not observed. PSYCH: Normal mood, normal affect. SKIN: Warm, dry, normal turgor, no rashes or lesions noted CBCD WBC 4.5 K/mm3 (4.0-10.0) 03/12/19 07:20 RBC 3.56 M/mm3 (4.00-5.60) L 03/12/19 07:20 Hgb 8.5 GM/dL (11.7-16.9) L 03/12/19 07:20 Hct 26.8 % (35.4-49) L D 03/12/19 07:20 MCV 75.2 fl (80-96) L 03/12/19 07:20 MCHC 31.6 g/dl (32.0-35.9) L 03/12/19 07:20 RDW 21.3 % (11.9-15.9) H 03/12/19 07:20 Plt Count 232 K/MM3 (134-434) 03/12/19 07:20 MPV 7.4 fl (7.5-11.1) L 03/12/19 07:20 CMP Sodium 142 mmol/L (136-145) 03/12/19 07:20 Potassium 4.0 mmol/L (3.5-5.1) 03/12/19 07:20 Chloride 110 mmol/L (98-107) H 03/12/19 07:20 Carbon Dioxide 28 mmol/L (21-32) 03/12/19 07:20 Anion Gap 4 MMOL/L (8-16) L 03/12/19 07:20 BUN 11.8 mg/dL (7-18) 03/12/19 07:20 Creatinine 0.8 mg/dL (0.55-1.3) 03/12/19 07:20 Random Glucose 89 mg/dL (74-106) 03/12/19 07:20 Calcium 8.9 mg/dL (8.5-10.1) 03/12/19 07:20 Total Bilirubin 1.3 mg/dL (0.2-1) H 03/12/19 07:20 AST 14 U/L (15-37) L 03/12/19 07:20 ALT 8 U/L (13-61) L 03/12/19 07:20 Alkaline Phosphatase 63 U/L (45-117) 03/12/19 07:20 Total Protein 5.8 g/dl (6.4-8.2) L 03/12/19 07:20 Albumin 3.1 g/dl (3.4-5.0) L 03/12/19 07:20 CARDIAC ENZYMES Creatine Kinase 52 U/L (26-308) 03/11/19 17:13 Troponin I 0.02 ng/ml (0.00-0.05) 03/11/19 17:13 Current Medications Generic Name Dose Route Start Last Admin Trade Name Freq PRN Reason Stop Dose Admin Acetaminophen 650 mg 03/11/19 22:22 Tylenol - PO Q6H PRN PAIN LEVEL 1-5 Clopidogrel Bisulfate 75 mg 03/12/19 10:00 Plavix - PO DAILY RAUL Sodium Chloride 1,000 mls @ 42 mls/hr 03/11/19 22:30 03/11/19 23:30 Normal Saline - IV 42 mls/hr ASDIR RAUL Administration Pantoprazole Sodium 40 mg 03/12/19 10:00 Protonix Iv IVPUSH DAILY [facility] Home Medications Medication Instructions Recorded Bisacodyl [Dulcolax] 10 mg RC DAILY PRN 06/07/13 Apixaban [Eliquis] 2.5 mg PO BID 05/25/18 Cholecalciferol (Vitamin D3) 1,000 unit PO DAILY 05/25/18 [Vitamin D3] Docusate Sodium [Colace] 100 mg PO DAILY PRN 05/25/18 Metoprolol Succinate [Toprol Xl] 12.5 mg PO BID 05/25/18 Rosuvastatin [Crestor -] 20 mg PO HS 05/25/18 Ferrous Sulfate 325 mg PO DAILY 03/11/19 ASSESSMENT AND PLAN: 83 y/o DNR/DNI male with PMH of diverticulosis, Afib on Eliquis and Plavix , Iron deficiency anemia (diagnosed October, non compliant with iron supplements due to constipation) CAD (status post multiple stents, CABG), 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 Admitted for acute GI bleeding. #Acute Painless GIB with hx of diverticulosis/mass/ upper GI source, Gi is on the case #Hx of diverticulosis: Ct of abdomen and pelvis reviewed on 08/18 --> descending colon bulking . Stool occult blood positive # Acute blood loss s/p one unit of PRBC , monitor H/H , hold eliquis now. on Iv protonix #hx of extensive CAD:on plavix , cardio consult appreciated , dr fairbanks on the case #AFIb:off eliquis for now #Generalized weakness poss due advanced untreated iron deficiency anemia and recent drop in Hb # Hx of previous CVA. right sided weakness in UE and dysarthria fall precaution PT ordered NPO DVT Px: SCDs no AC for now
[2019-03-12] MEDS ORDERED: CLOPIDOGREL BISULFATE 75 MG TABLET (FP) PO SCH (10:00)
--- NOTE | 2019-03-12 10:06 | EKG ---
Test Reason : Blood Pressure : / mmHG Vent. Rate : 057 BPM Atrial Rate : 057 BPM P-R Int : 250 ms QRS Dur : 104 ms QT Int : 440 ms P-R-T Axes : 047 068 -56 degrees QTc Int : 428 ms SINUS BRADYCARDIA WITH 1ST DEGREE A-V BLOCK LOW VOLTAGE QRS CANNOT RULE OUT ANTERIOR INFARCT , AGE UNDETERMINED ABNORMAL ECG WHEN COMPARED WITH ECG OF 31-MAY-2018 22:58, SINUS RHYTHM HAS REPLACED ATRIAL FIBRILLATION T WAVE VARIATION Confirmed by CATARINA BOO MD ([id number]) on 03/12/2019 10:05:45 AM Referred By: Confirmed By:CATARINA BOO MD
--- NOTE | 2019-03-12 11:05 | CON.CARD ---
Consult Consult Specialty:: Cardiology Referred by:: Hospitalist Medicine Reason for Consultation:: Antiplatelet and a/c recommendations - History of Present Illness Chief Complaint: Acute blood loss anemia History of Present Illness: 83 M h/o paroxysmal afib on eliquis, CAD s/p stents x 9 last in 2005 and CABG with reop on Plavix, HTN, HLD, CVA x2 with residual speech and right-sided weakness, diverticulosis p/w 3 days of weakness, near syncope and melena with decreased exercise capacity. Denies SOB, chest pain, palpitations, true syncope , abdominal pain. Previously patient of Dr. Ferguson for cardio, but has not seen in over a year and health care proxy (daughter) has decided to f/u with our team after given option of continuing with [facility] or . Noted Hgb 5.8 transfused 2 u pRBC, daughter noted brown BM. 08/04/18 abd/pelvic CT shows bulky distal descending colon, colonoscopy recommended, last greater than 10 years ago. 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 Cardio/Vascular: Yes: AFIB, CAD, HTN, Hyperlipdemia, [place] - Past Surgical History Past Surgical History: Yes: CABG, Stent - Alcohol/Substance Use Hx Alcohol Use: No History of Substance Use: reports: None - Smoking History Smoking history: Never smoked Have you smoked in the past 12 months: No Aproximately how many cigarettes per day: 0 - Social History ADL: Family Assistance History of Recent Travel: No Home Medications - Allergies Allergies/Adverse Reactions: Allergies Allergy/AdvReac Type Severity Reaction Status Date / Time No Known Allergies Allergy Verified 03/11/19 16:29 - Home Medications Home Medications: Ambulatory Orders Bisacodyl [Dulcolax] 10 mg RC DAILY PRN 06/07/13 Apixaban [Eliquis] 2.5 mg PO BID 05/25/18 Cholecalciferol (Vitamin D3) [Vitamin D3] 1,000 unit PO DAILY 05/25/18 Docusate Sodium [Colace] 100 mg PO DAILY PRN 05/25/18 Metoprolol Succinate [Toprol Xl] 12.5 mg PO BID 05/25/18 Rosuvastatin [Crestor -] 20 mg PO HS 05/25/18 Ferrous Sulfate 325 mg PO DAILY 03/11/19 Review of Systems - Review of Systems Constitutional: reports: Weakness Neurological: reports: Dizziness, Weakness Vital Signs: Vital Signs Temperature 97.5 F L 03/12/19 06:00 Pulse Rate 59 L 03/12/19 06:00 Respiratory Rate 18 03/12/19 06:00 Blood Pressure 148/69 03/12/19 06:00 O2 Sat by Pulse Oximetry (%) 100 03/12/19 03:30 Constitutional: Yes: No Distress, Calm Neck: Yes: Supple Respiratory: Yes: Regular, CTA Bilaterally Gastrointestinal: Yes: Soft, Hypoactive Bowel Sounds Cardiovascular: Yes: Regular Rate and Rhythm JVD: No Carotid Bruit: No Heart Sounds: Yes: S1, S2 Murmur: Yes: Systolic Murmur, Grade 1 Edema: No - Other Data Labs, Other Data: CBC, BMP 03/12/19 07:20 03/12/19 07:20 INR, PTT INR 1.21 (0.83-1.09) H 03/11/19 17:13 Troponin, BNP 03/11/19 17:13 Troponin I 0.02 Troponin, BNP 03/11/19 17:13 Troponin I 0.02 SB @ 57 IVCD Tele: NSR Ejection Fraction %: LVEF > or = 40 % Problem List - Problems (1) Chronic anticoagulation Code(s): Z79.01 - CORRECTION (CURRENT) USE OF ANTICOAGULANTS (2) Anemia Code(s): D64.9 - ANEMIA, UNSPECIFIED Qualifiers: Qualified Code(s): D50.0 - Iron deficiency anemia secondary to blood loss ( chronic) (3) Weakness Code(s): R53.1 - WEAKNESS (4) CAD (coronary artery disease) Code(s): I25.10 - ATHSCL HEART DISEASE OF [place] CORONARY ARTERY W/O ANG PCTRS Qualifiers: Qualified Code(s): I25.10 - Atherosclerotic heart disease of [place] coronary artery without angina pectoris (5) CVA (cerebral infarction) Code(s): I63.9 - CEREBRAL INFARCTION, UNSPECIFIED (6) Hyperlipidemia Code(s): E78.5 - HYPERLIPIDEMIA, UNSPECIFIED Qualifiers: Qualified Code(s): E78.00 - Pure hypercholesterolemia, unspecified; E78.0 - Pure hypercholesterolemia (7) Hypertension Code(s): I10 - ESSENTIAL (PRIMARY) HYPERTENSION Qualifiers: Qualified Code(s): I10 - Essential (primary) hypertension Assessment/Plan Echo 05/2018 mild inf wall hypokinesis, septal motion c/w conduction abnormality , EF 45-50%, low normal systolic function, LA mildly dilated, mild MR, mild TR, mild AR Echo 09/2017 afib, 80s, nl LV fn, hypokinesis of inferobasal wall and inf apex, mild to mod AR, mild to mod MR, ao sinus 3.8 cm, asc ao 3.8 cm, 1. Acute blood loss iron deficiency anemia referable to GI bleed post 2 u pRBC 2. Paroxysmal afib in SR I48.0 off Eliquis 3. CAD s/p stents x 9 last 2005, CABG with reop 4. HTN heart disease 5. HLD 6. CVA x 2 with residual dysarthria and right sided weakness 7. H/o diverticulosis, ? distal descending colonic mass P: 1. Monitor Hgb post transfusion, maintain Hgb>8.0, off Eliquis and Plavix for now, may proceed with with endoscopy from CV-standpoint w/o further testing , IV protonix 2. Once hemostasis assured, plan on resuming Eliquis 2.5 bid w/o concomitant Plavix due to stable CAD 3. IV iron, resume Toprol XL 12.5 bid, Crestor 20 qd as hemodynamics tolerate 4. Thank you for consultative opportunity 5. Patient to continue f/u with our team as outpatient
--- NOTE | 2019-03-12 11:42 | PN ---
Physical Exam: SUBJECTIVE: Patient seen and examined in the morning. Patient had no acute events overnight on telemetry monitoring. No complaints of chest pain, no shortness of breath, no abdominal pain, no bowel movements overnight, no nausea , no vomiting, no diarrhea. OBJECTIVE: Vital Signs Period Temp Pulse Resp BP Sys/Greer Pulse Ox Last 24 Hr 97.5 F-98.3 F 52-74 10-18 130-151/41-84 96-100 GENERAL: The patient is awake, alert, and fully oriented, in no acute distress. HEAD: Normal with no signs of trauma. EYES: PERRL, extraocular movements intact, sclera anicteric, conjunctiva clear. NECK: Trachea midline, full range of motion, supple. LUNGS: Breath sounds equal, clear to auscultation bilaterally, no wheezes, no crackles, no accessory muscle use. HEART: Regular rate and rhythm, S1, S2 without murmur, rub or gallop. ABDOMEN: Soft, nontender, nondistended, normoactive bowel sounds, no guarding, no rebound. EXTREMITIES: 2+ pulses, warm, well-perfused, no edema. Patient has 3/5 strength b/l in upper and lower extremities. NEUROLOGICAL: Cranial nerves II through XII grossly intact. Speech dysarthric. Laboratory Results - last 24 hr 03/11/19 03/11/19 03/11/19 17:13 17:13 17:13 WBC 4.1 RBC 2.77 L Hgb 5.8 L* Hct 19.9 L D MCV 71.6 L MCH 21.0 L D MCHC 29.3 L RDW 20.8 H Plt Count 270 MPV 7.8 D Absolute Neuts (auto) 2.3 Neutrophils % 57.2 Lymphocytes % 30.4 Monocytes % 10.3 H Eosinophils % 1.0 Basophils % 1.1 Nucleated RBC % 0 Hypochromia 2+ Platelet Estimate Normal Platelet Comment Giant platelets Poikilocytosis 1+ Anisocytosis 2+ Microcytosis 2+ Macrocytosis 0 Tear Drop Cells 1+ Ovalocytes 1+ [place] Cells 1+ Schistocytes 1+ PT with INR 14.30 H INR 1.21 H PTT (Actin FS) 30.4 Sodium Potassium Chloride Carbon Dioxide Anion Gap BUN Creatinine Est GFR (CKD-EPI)AfAm Est GFR (CKD-EPI)NonAf Random Glucose Calcium Phosphorus Magnesium Total Bilirubin AST ALT Alkaline Phosphatase Creatine Kinase Troponin I Total Protein Albumin Urine Color Urine Appearance Urine pH Ur Specific [place] Urine Protein Urine Glucose (UA) Urine Ketones Urine Blood Urine Nitrite Urine Bilirubin Urine Urobilinogen Ur Leukocyte Esterase Stool Occult Blood Blood Type AB POSITIVE Antibody Screen Negative Crossmatch See Detail 03/11/19 03/11/19 03/12/19 17:13 17:41 06:00 WBC RBC Hgb Hct MCV MCH MCHC RDW Plt Count MPV Absolute Neuts (auto) Neutrophils % Lymphocytes % Monocytes % Eosinophils % Basophils % Nucleated RBC % Hypochromia Platelet Estimate Platelet Comment Poikilocytosis Anisocytosis Microcytosis Macrocytosis Tear Drop Cells Ovalocytes [place] Cells Schistocytes PT with INR INR PTT (Actin FS) Sodium 139 Potassium 3.6 Chloride 108 H Carbon Dioxide 27 Anion Gap 4 L BUN 12.0 Creatinine 0.9 Est GFR (CKD-EPI)AfAm 90.58 Est GFR (CKD-EPI)NonAf 78.15 Random Glucose 102 Calcium 8.3 L Phosphorus 3.2 Magnesium 2.1 Total Bilirubin 0.3 AST 16 ALT 10 L Alkaline Phosphatase 67 Creatine Kinase 52 Troponin I 0.02 Total Protein 6.2 L Albumin 3.2 L Urine Color Yellow Urine Appearance Clear Urine pH 6.0 Ur Specific [place] 1.020 Urine Protein Negative Urine Glucose (UA) Negative Urine Ketones Negative Urine Blood Negative Urine Nitrite Negative Urine Bilirubin Negative Urine Urobilinogen 1.0 Ur Leukocyte Esterase Negative Stool Occult Blood Positive Blood Type Antibody Screen Crossmatch 03/12/19 03/12/19 07:20 07:20 WBC 4.5 RBC 3.56 L Hgb 8.5 L Hct 26.8 L D MCV 75.2 L MCH 23.8 L D MCHC 31.6 L RDW 21.3 H Plt Count 232 MPV 7.4 L Absolute Neuts (auto) 2.6 Neutrophils % 58.7 Lymphocytes % 28.5 Monocytes % 9.3 Eosinophils % 2.0 D Basophils % 1.5 Nucleated RBC % 0 Hypochromia Platelet Estimate Platelet Comment Poikilocytosis Anisocytosis Microcytosis Macrocytosis Tear Drop Cells Ovalocytes [place] Cells Schistocytes PT with INR INR PTT (Actin FS) Sodium 142 Potassium 4.0 Chloride 110 H Carbon Dioxide 28 Anion Gap 4 L BUN 11.8 Creatinine 0.8 Est GFR (CKD-EPI)AfAm 95.07 Est GFR (CKD-EPI)NonAf 82.03 Random Glucose 89 Calcium 8.9 Phosphorus 3.5 Magnesium 2.2 Total Bilirubin 1.3 H AST 14 L ALT 8 L Alkaline Phosphatase 63 Creatine Kinase Troponin I Total Protein 5.8 L Albumin 3.1 L Urine Color Urine Appearance Urine pH Ur Specific [place] Urine Protein Urine Glucose (UA) Urine Ketones Urine Blood Urine Nitrite Urine Bilirubin Urine Urobilinogen Ur Leukocyte Esterase Stool Occult Blood Blood Type Antibody Screen Crossmatch Active Medications Generic Name Dose Route Start Last Admin Trade Name Feliciano PRN Reason Stop Dose Admin Acetaminophen 650 mg 03/11/19 22:22 Tylenol - PO Q6H PRN PAIN LEVEL 1-5 Clopidogrel Bisulfate 75 mg 03/12/19 10:00 03/12/19 09:29 Plavix - PO 75 mg DAILY RAUL Administration Sodium Chloride 1,000 mls @ 42 mls/hr 03/11/19 22:30 03/11/19 23:30 Normal Saline - IV 42 mls/hr ASDIR RAUL Administration Pantoprazole Sodium 40 mg 03/12/19 10:00 03/12/19 09:29 Protonix Iv IVPUSH 40 mg DAILY RAUL Administration ASSESSMENT/PLAN: 83 M with PMH of Diverticulosis, Atrial Fibrillation on Eliquis and Plavix, iron deficiency anemia, CAD (multiple stents and CABG X2, last procedure 2006), 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 1) Painless GI Bleed -4 maroon colored stools over the past 3 days, no BM overnight. -Holding Eliquis, holding Plavix -2 units PRBC given- Hgb 5.8--> 8.5 -pantoproazole 40 mg IV Qdaily -Consulted GI, appreciate recs -Consulted cardio, appreciate recs -Cardiology is okay with Endoscopy 2)Iron Deficiency Anemia -2 units PRBC given -IV Venofir -Metoprolol 12.5 mg BID 3) Hx of CAD -Consulted Cardiology, appreciate recs -Crestor 20 mg Qdaily PO 4)Hx of Afib -Holding Eliquis DVT Prophylaxis: Currently holding prophylaxis due to bleeding F: NS @ 42 ml/hr E: Monitor CMP N: NPO until GI evaluation Dispo: Admitted to ICU Visit type - Emergency Visit Emergency Visit: Yes ED Registration Date: 03/11/19 Care time: The patient presented to the Emergency Department on the above date and was hospitalized for further evaluation of their emergent condition. - New Patient This patient is new to me today: Yes Date on this admission: 03/12/19 - Critical Care Critical Care patient: No ATTENDING PHYSICIAN STATEMENT I saw and evaluated the patient. I reviewed the resident's note and discussed the case with the resident. I agree with the resident's findings and plan as documented. SUBJECTIVE: OBJECTIVE: ASSESSMENT AND PLAN:
--- NOTE | 2019-03-12 20:24 | CON.GI ---
Consult Consult Specialty:: GI Referred by:: Hospitalist Service Reason for Consultation:: Anemia and rectal bleeding - History of Present Illness Chief Complaint: Anemia History of Present Illness: 83M admitted for evaluation of rectal bleeding. patient states he has had on and off rectal bleeding for 3 weeks, his daughter states that it was 3 days. he denies associated abdominal pain. He had an abnormal CT scan of the abdomen and pelvis 08/18 that reevaled a bulky appearance to the descending colon raising question of a mass as well as pulmonary nodules. That CT scan was performed for weight loss. [facility] He has had a progressive anemia that has become microcytic from 01/17. There is no family history of colon cancer. He denies melena, abdominal pain. He is maintaine on eliquis for PAF and plavix given h/o cardiac stents x 9 and CABG w/ reop. Last dose of eliquis was tuesday morning. He was transfused 1 U PRBC. 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 Place of : [facility] History of Recent Travel: No Home Medications - Allergies Allergies/Adverse Reactions: Allergies Allergy/AdvReac Type Severity Reaction Status Date / Time No Known Allergies Allergy Verified 03/11/19 16:29 - Home Medications Home Medications: Ambulatory Orders Bisacodyl [Dulcolax] 10 mg RC DAILY PRN 06/07/13 Apixaban [Eliquis] 2.5 mg PO BID 05/25/18 Cholecalciferol (Vitamin D3) [Vitamin D3] 1,000 unit PO DAILY 05/25/18 Docusate Sodium [Colace] 100 mg PO DAILY PRN 05/25/18 Metoprolol Succinate [Toprol Xl] 12.5 mg PO BID 05/25/18 Rosuvastatin [Crestor -] 20 mg PO HS 05/25/18 Ferrous Sulfate 325 mg PO DAILY 03/11/19 Family Medical History Other Family History: father: : CVA: 64. mother: 62. 1 brother / 1 sister: healthy. 1 son, 1 daughter: healthy. No family history of colorectal cancer or other GI malignancy Review of Systems - Review of Systems Constitutional: reports: Unintentional Wgt. Loss. denies: Diaphoresis Cardiovascular: denies: Chest Pain Respiratory: denies: Cough Gastrointestinal: reports: Rectal Bleeding. denies: Abdominal Pain, Melena Physical Exam-GI Vital Signs: Vital Signs Temperature 98.2 F 03/12/19 08:00 Pulse Rate 54 L 03/12/19 16:00 Respiratory Rate 18 03/12/19 16:00 Blood Pressure 120/50 L 03/12/19 16:00 O2 Sat by Pulse Oximetry (%) 100 03/12/19 09:00 Constitutional: Yes: Calm Eyes: No: Sclera Icterus Cardiovascular: Yes: Regular Rate and Rhythm. No: Murmur Respiratory: Yes: CTA Bilaterally Gastrointestinal Inspection: Yes: Scars (sternotomy scar extending to upper abdomen) ...Auscultate: Yes: Normoactive Bowel Sounds ...Palpate: Yes: Soft. No: Hepatomegaly, Splenomegaly, Tenderness ...Rectal Exam: Yes: Other (No external lesions, no masses, 2+ prostate, scant light estrada stool) Edema: No (No LE edema) Neurological: Yes: Alert Labs: CBC, BMP 03/12/19 07:20 03/12/19 07:20 INR, PTT INR 1.21 (0.83-1.09) H 03/11/19 17:13 Hepatic Panel Total Bilirubin 1.3 mg/dL (0.2-1) H 03/12/19 07:20 AST 14 U/L (15-37) L 03/12/19 07:20 ALT 8 U/L (13-61) L 03/12/19 07:20 Alkaline Phosphatase 63 U/L (45-117) 03/12/19 07:20 Albumin 3.1 g/dl (3.4-5.0) L 03/12/19 07:20 Problem List - Problems (1) Anemia Assessment/Plan: No overt bleeding and patient hemodynamically stable. Given progressive microcytic anemia along with abnormal CT scan finding and recent onset of rectal bleeding, discussed colonoscopy and if unrevealing upper endoscopy with Mr. Mejias. his eliquis has been held as has Plavix. We discussed potential risks of the procedures like but not limited to bleeding, perforation requiring surgery to repair, infection, sedation medication effects all of which could be potentially life threatening. He has agreed to the procedures. This was discussed with his daughter Leticia as well via telephone. he has been cleared by cardiology for procedures. Monitor for overt bleeding Clear liquids for now and plan for procedures 03/13 Code(s): D64.9 - ANEMIA, UNSPECIFIED Qualifiers: Anemia type: iron deficiency Iron deficiency anemia type: chronic blood loss Qualified Code(s): D50.0 - Iron deficiency anemia secondary to blood loss (chronic)
[2019-03-12] MEDS: metoPROLOL SUCCINATE 25 MG TAB.SR.24H (FP) PO SCH (21:01)
[2019-03-12] MEDS ORDERED: ROSUVASTATIN CA 20 MG TABLET (FP) PO SCH (22:00)
[2019-03-13 07:02] LABS: BASO % 1.2 % (0-2.0); EOS % 2.9 % (0-4.5); HEMATOCRIT 26.3 % (35.4-49); HEMOGLOBIN 8.2 GM/dL (11.7-16.9); LYMPH % 24.1 % (8-40); MCH 23.6 pg (25.7-33.7); MEAN CELL VOLUME 76.1 fl (80-96); MEAN PLT VOLUME 7.5 fl (7.5-11.1); MONO % 6.4 % (3.8-10.2); NEUT % 65.4 % (42.8-82.8); PLATELET COUNT 217 K/MM3 (134-434); RBC 3.46 M/mm3 (4.00-5.60); RDW 21.1 % (11.9-15.9); WHITE BLOOD COUNT 6.2 K/mm3 (4.0-10.0)
[2019-03-13 07:31] LABS: ALBUMIN 2.8 g/dl (3.4-5.0); BLOOD UREA NITROGEN 9.3 mg/dL (7-18); CALCIUM 8.3 mg/dL (8.5-10.1); CREATININE 0.7 mg/dL (0.55-1.3); POTASSIUM 3.7 mmol/L (3.5-5.1); TOT PROT 5.3 g/dl (6.4-8.2)
[2019-03-13 09:06] VITALS: TEMP 97.3
[2019-03-13] MEDS: PANTOPRAZOLE SODIUM 40 MG VIAL IVPUSH SCH (10:24)
[2019-03-13] MEDS: SODIUM CHLORIDE 1,000 ML IV SCH (10:25)
[2019-03-13] MEDS: metoPROLOL SUCCINATE 25 MG TAB.SR.24H (FP) PO SCH (10:25)
[2019-03-13 13:19] VITALS: BP 135/56; PULSE 45
--- NOTE | 2019-03-13 13:45 | DS ---
Physical Exam: SUBJECTIVE: Patient seen and examined in the morning. No acute events overnight. Patient had no complaints of chest pain, abdominal pain, shortness of breath, fever,chills, nausea, vomiting,diarrhea. Patient had one non-bloody bowel movement overnight. OBJECTIVE: Vital Signs Period Temp Pulse Resp BP Sys/Greer Pulse Ox Last 24 Hr 97.3 F-98.5 F 44-54 10-18 120-146/47-61 98-98 PHYSICAL EXAM GENERAL: The patient is awake, alert, and fully oriented, in no acute distress. HEAD: Normal with no signs of trauma. LUNGS: Breath sounds equal, clear to auscultation bilaterally, no wheezes, no crackles, no accessory muscle use. HEART: Regular rate and rhythm, S1, S2 without murmur, rub or gallop. ABDOMEN: Soft, nontender, nondistended, normoactive bowel sounds, no guarding, no rebound. EXTREMITIES: 2+ pulses, warm, well-perfused, no edema. Patient has full ROM of the left extremities upper and lower. Limited ROM of the right upper extremity and 2/5 strength upper and lower. NEUROLOGICAL: Cranial nerves II through XII grossly intact. Patient is dysarthric. LABS Laboratory Results - last 24 hr 03/13/19 03/13/19 05:25 05:25 WBC 6.2 RBC 3.46 L Hgb 8.2 L Hct 26.3 L MCV 76.1 L MCH 23.6 L MCHC 31.0 L RDW 21.1 H Plt Count 217 MPV 7.5 Absolute Neuts (auto) 4.1 Neutrophils % 65.4 Lymphocytes % 24.1 Monocytes % 6.4 Eosinophils % 2.9 Basophils % 1.2 Nucleated RBC % 0 Sodium 140 Potassium 3.7 Chloride 108 H Carbon Dioxide 26 Anion Gap 6 L BUN 9.3 Creatinine 0.7 Est GFR (CKD-EPI)AfAm 100.44 Est GFR (CKD-EPI)NonAf 86.66 Random Glucose 76 Calcium 8.3 L Total Bilirubin 1.0 AST 14 L ALT 8 L Alkaline Phosphatase 57 Total Protein 5.3 L Albumin 2.8 L HOSPITAL COURSE: Date of Admission:03/11/19 Date of Discharge: 03/13/19 83 M with PMH of Diverticulosis, Atrial Fibrillation on Eliquis and Plavix, iron deficiency anemia, CAD (multiple stents and CABG X2, last procedure 2006), 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 Patient was noted to have hemoglobin of 5.8 on admission and was transfused 2 units of blood. Patient's Hemglobin was 8.5 and Hct on 26.8 after transfusion. Did not have any negative reaction to blood products. On day of discharge patient's Hgb/Hct was 8.2/26.3. Patient had one non-bloody bowel movement during admission. Cardiology was consulted and they recommended stopping Eliquis and Plavix. Patient was restarted on Eliquis on discharge as there was no active bleeding. Plavix was discontinued as last stent was placed approximately 15 years ago. GI was consulted and patient was scheduled for colonoscopy on 03/14/19. However patient did not want further invasive intervention and was discharged home. *Spoke with patient and daughter who is also healthcare proxy on 03/13/19 in the AM. Patient stated that he did not want a colonoscopy and that he did not want any further treatment and wanted to go home. I informed patient and the daughter about the benefits of colonoscopy and that while he is not having any active bloody bowel movements, there could be mass or bleeding present. Patient understood the risks of refusing treatment and chose to not have colonoscopy. Patient was given referral to have outpatient follow up for colonoscopy and instructed to return if worsening of symptoms.* Relevant Imaging Done This Stay: Chest X-Ray: No acute chest pathology Minutes to complete discharge: 35 Discharge Summary Problems reviewed: Yes Reason For Visit: ANEMIA, WEAKNESS Current Active Problems Chronic anticoagulation (Acute) Anemia (Chronic) Atrial fibrillation with RVR (Chronic) Cerebrovascular accident (Chronic) Weakness (Chronic) Condition: Stable - Instructions Diet, Activity, Other Instructions: You were admitted to the hospital because of bloody bowel movements. While you were here we noticed that you were anemic (low blood levels). We treated your anemia by giving you a blood transfusion. We were planning to do a colonoscopy to see if there was any active bleeding at the time in your intestines. However you have chosen that you do not want a colonoscopy now. We are providing you with a referral to a GI doctor, if you want to do it later, which we recommend. You are still anemic. For your anemia we are prescribing you Chromagen 1 tablet by mouth, take once a day. This will replace your iron supplement. We have discontinued your Plavix. You do not need to take it anymore. Continue taking your Eliquis as directed. Please continue taking all your other home medications. Please follow up with Dr. Sam within 1 week. Please follow up with Dr. Woodard within 1 week. Please follow up with within 1 week. Return to the Emergency Department if you have chest pain, shortness of breath, abdominal pain, fever, blood in your stools, or worsening of your symptoms. Referrals: Tesfaye Woodard DO [Staff Physician] - 1 Week Taqueria Sam MD [Primary Care Provider] - 1 Week Jamie Hale MD [Staff Physician] - 1 Week Disposition: HOME - Home Medications Comprehensive Discharge Medication List: Ambulatory Orders Bisacodyl [Dulcolax] 10 mg RC DAILY PRN 06/07/13 Apixaban [Eliquis] 2.5 mg PO BID 05/25/18 Cholecalciferol (Vitamin D3) [Vitamin D3] 1,000 unit PO DAILY 05/25/18 Docusate Sodium [Colace] 100 mg PO DAILY PRN 05/25/18 Metoprolol Succinate [Toprol Xl] 12.5 mg PO BID 05/25/18 Rosuvastatin [Crestor -] 20 mg PO HS 05/25/18 Iron/C/Folate 6/B12/Zn/Stomach [Chromagen Softgel] 1 each PO DAILY #30 capsule 03/13/19 This patient is new to me today: No Emergency Visit: Yes ED Registration Date: 03/11/19 Care time: The patient presented to the Emergency Department on the above date and was hospitalized for further evaluation of their emergent condition. Critical Care patient: No - Discharge Referral Referred to [facility] Med P.C.: No ATTENDING PHYSICIAN STATEMENT I saw and evaluated the patient. I reviewed the resident's note and discussed the case with the resident. I agree with the resident's findings and plan as documented. SUBJECTIVE: OBJECTIVE: ASSESSMENT AND PLAN:
--- NOTE | 2019-03-13 14:06 | PN ---
Progress Note, Physician Chief Complaint: Events noted Not in distress History of Present Illness: Patient was seen and examined. Awake and alert. Chart was reviewed Denies chest pain, SOB or palpitations - Current Medication List Current Medications: Active Medications Acetaminophen (Tylenol -) 650 mg PO Q6H PRN PRN Reason: PAIN LEVEL 1-5 Bisacodyl (Dulcolax -) 20 mg PO ONCE ONE Stop: 03/13/19 15:01 Sodium Chloride (Normal Saline -) 1,000 mls @ 42 mls/hr IV ASDIR [facility] Last Admin: 03/13/19 10:25 Dose: 42 mls/hr Metoprolol Succinate (Toprol Xl -) 12.5 mg PO BID [facility] Last Admin: 03/13/19 10:25 Dose: 12.5 mg Pantoprazole Sodium (Protonix Iv) 40 mg IVPUSH DAILY [facility] Last Admin: 03/13/19 10:24 Dose: 40 mg Polyethylene Glycol/Electrolytes (Golytely Solution -) 4,000 ml PO ONCE ONE Stop: 03/13/19 16:01 Rosuvastatin Calcium (Crestor -) 20 mg PO HS [facility] Last Admin: 03/12/19 21:01 Dose: 20 mg - Objective Vital Signs: Vital Signs Temperature 97.3 F L 03/13/19 12:00 Pulse Rate 45 L 03/13/19 12:00 Respiratory Rate 10 03/13/19 12:00 Blood Pressure 135/56 L 03/13/19 12:00 O2 Sat by Pulse Oximetry (%) 98 03/13/19 09:00 Eyes: Yes: PERRL HENT: Yes: Atraumatic Neck: Yes: Supple Cardiovascular: Yes: Regular Rate and Rhythm, Murmur (SM), S1, S2 Respiratory: Yes: CTA Bilaterally Gastrointestinal: Yes: Normal Bowel Sounds, Soft. No: Tenderness Edema: No Additional Findings/Remarks: - Review of Systems Constitutional: denies: Chills, Fever Cardiovascular: denies Shortness of Breath. denies: Chest Pain, Palpitations Respiratory: denies Cough, SOB, SOB on Exertion. denies: Hemoptysis, Orthopnea , PND, Wheezing Gastrointestinal: denies: Abdominal Pain, Constipation, Diarrhea, Melena, Nausea , Rectal Bleeding, Vomiting Genitourinary: denies: Dysuria, Hematuria Musculoskeletal: denies: Back Pain, Joint Pain Neurological: denies: Dizziness, Headache, Seizure, Syncope Labs: CBC, BMP 03/13/19 05:25 03/13/19 05:25 Problem List - Problems (1) Anemia Code(s): D64.9 - ANEMIA, UNSPECIFIED Qualifiers: Anemia type: iron deficiency Iron deficiency anemia type: chronic blood loss Qualified Code(s): D50.0 - Iron deficiency anemia secondary to blood loss (chronic) (2) Atrial fibrillation with RVR Code(s): I48.91 - UNSPECIFIED ATRIAL FIBRILLATION (3) Cerebrovascular accident Code(s): I63.9 - CEREBRAL INFARCTION, UNSPECIFIED (4) CAD (coronary artery disease) Code(s): I25.10 - ATHSCL HEART DISEASE OF [place] CORONARY ARTERY W/O ANG PCTRS Qualifiers: Coronary Disease-Associated Artery/Lesion type: [place] artery [place] vs. transplanted heart: [place] heart Associated angina: without angina Qualified Code(s): I25.10 - Atherosclerotic heart disease of [place] coronary artery without angina pectoris (5) Hyperlipidemia Code(s): E78.5 - HYPERLIPIDEMIA, UNSPECIFIED Qualifiers: Hyperlipidemia type: pure hypercholesterolemia Qualified Code(s): E78.00 - Pure hypercholesterolemia, unspecified; E78.0 - Pure hypercholesterolemia (6) Hypertension Code(s): I10 - ESSENTIAL (PRIMARY) HYPERTENSION Qualifiers: Hypertension type: essential hypertension Qualified Code(s): I10 - Essential (primary) hypertension Assessment/Plan 1. Acute blood loss iron deficiency anemia referable to GI bleed post transfusion 2. Paroxysmal AF currently in sinus rhythm 3. CAD s/p stents x 9, CABG with reop 4. HTN 5. Hypercholesterolemia 6. CVA x 2 with residual dysarthria and right sided weakness 7. History of diverticulosis, ? distal descending colonic mass PLAN: 1. Monitor Hgb post transfusion, maintain Hgb>8.0. Currently off Eliquis and Plavix. May proceed with with endoscopy from cardiac-standpoint w/o further testing. Restart Eliquis without concomitant Plavix after procedure or if patient is not proceeding with procedure 2. IV Iron, continue Toprol XL 12.5 mg BID and Crestor 20 mg QHS as hemodynamics tolerate 3. Patient to continue f/u with our team as outpatient David Sarabia MD
[2019-03-13] MEDS ORDERED: BISACODYL 5 MG TABLET.DR (FP) PO ONE (15:00)
[2019-03-13] MEDS ORDERED: PEG 3350/NA SULF BICARB CL/KCL 4000 ML SOLN.RECON PO ONE (16:00)
--- NOTE | 2019-03-13 16:01 | PN ---
Teaching Attending Note Name of Resident: Lilian Choi ATTENDING PHYSICIAN STATEMENT I saw and evaluated the patient. I reviewed the resident's note and discussed the case with the resident. I agree with the resident's findings and plan as documented. SUBJECTIVE: Patient is feeling better , refusing to have colonoscopy and wants to go home. denies any further bleed. Vital Signs Temperature 97.3 F L 03/13/19 12:00 Pulse Rate 45 L 03/13/19 12:00 Respiratory Rate 10 03/13/19 12:00 Blood Pressure 135/56 L 03/13/19 12:00 O2 Sat by Pulse Oximetry (%) 98 03/13/19 09:00 GENERAL: The patient is awake, alert, and fully oriented, in no acute distress. HEAD: Normal with no signs of trauma. EYES: PERRL, extraocular movements intact, sclera anicteric, conjunctiva clear. ENT: Ears normal, oropharynx clear without exudates, moist mucous membranes. NECK: Trachea midline, full range of motion, supple. LUNGS: Breath sounds equal, clear to auscultation bilaterally, no wheezes, no crackles, no accessory muscle use. HEART: Regular rate and rhythm, S1, S2 positive, NOLBERTO 2/6, no rub or gallop. ABDOMEN: Soft, Nt,ND, normoactive bowel sounds, no guarding, no rebound, no hepatosplenomegaly, no masses. EXTREMITIES: 2+ pulses, warm, well-perfused, no edema. NEUROLOGICAL: Cranial nerves II through XII grossly intact. Normal speech, gait not observed. PSYCH: Normal mood, normal affect. SKIN: Warm, dry, normal turgor, no rashes or lesions noted 2 CBCD WBC 6.2 K/mm3 (4.0-10.0) 03/13/19 05:25 RBC 3.46 M/mm3 (4.00-5.60) L 03/13/19 05:25 Hgb 8.2 GM/dL (11.7-16.9) L 03/13/19 05:25 Hct 26.3 % (35.4-49) L 03/13/19 05:25 MCV 76.1 fl (80-96) L 03/13/19 05:25 MCHC 31.0 g/dl (32.0-35.9) L 03/13/19 05:25 RDW 21.1 % (11.9-15.9) H 03/13/19 05:25 Plt Count 217 K/MM3 (134-434) 03/13/19 05:25 MPV 7.5 fl (7.5-11.1) 03/13/19 05:25 CMP Sodium 140 mmol/L (136-145) 03/13/19 05:25 Potassium 3.7 mmol/L (3.5-5.1) 03/13/19 05:25 Chloride 108 mmol/L (98-107) H 03/13/19 05:25 Carbon Dioxide 26 mmol/L (21-32) 03/13/19 05:25 Anion Gap 6 MMOL/L (8-16) L 03/13/19 05:25 BUN 9.3 mg/dL (7-18) 03/13/19 05:25 Creatinine 0.7 mg/dL (0.55-1.3) 03/13/19 05:25 Random Glucose 76 mg/dL (74-106) 03/13/19 05:25 Calcium 8.3 mg/dL (8.5-10.1) L 03/13/19 05:25 Total Bilirubin 1.0 mg/dL (0.2-1) 03/13/19 05:25 AST 14 U/L (15-37) L 03/13/19 05:25 ALT 8 U/L (13-61) L 03/13/19 05:25 Alkaline Phosphatase 57 U/L (45-117) 03/13/19 05:25 Total Protein 5.3 g/dl (6.4-8.2) L 03/13/19 05:25 Albumin 2.8 g/dl (3.4-5.0) L 03/13/19 05:25 CARDIAC ENZYMES Creatine Kinase 52 U/L (26-308) 03/11/19 17:13 Troponin I 0.02 ng/ml (0.00-0.05) 03/11/19 17:13 Home Medications Medication Instructions Recorded Bisacodyl [Dulcolax] 10 mg RC DAILY PRN 06/07/13 Apixaban [Eliquis] 2.5 mg PO BID 05/25/18 Cholecalciferol (Vitamin D3) 1,000 unit PO DAILY 05/25/18 [Vitamin D3] Docusate Sodium [Colace] 100 mg PO DAILY PRN 05/25/18 Metoprolol Succinate [Toprol Xl] 12.5 mg PO BID 05/25/18 Rosuvastatin [Crestor -] 20 mg PO HS 05/25/18 Ferrous Sulfate 325 mg PO DAILY 03/11/19 Home Medications Medication Instructions Recorded Bisacodyl [Dulcolax] 10 mg RC DAILY PRN 06/07/13 Apixaban [Eliquis] 2.5 mg PO BID 05/25/18 Cholecalciferol (Vitamin D3) 1,000 unit PO DAILY 05/25/18 [Vitamin D3] Docusate Sodium [Colace] 100 mg PO DAILY PRN 05/25/18 Metoprolol Succinate [Toprol Xl] 12.5 mg PO BID 05/25/18 Rosuvastatin [Crestor -] 20 mg PO HS 05/25/18 Iron/C/Folate 6/B12/Zn/Stomach 1 each PO DAILY #30 capsule 03/13/19 [Chromagen Softgel] ASSESSMENT AND PLAN: Patient is an 83 y/o male with PMHx of diverticulosis, Afib on Eliquis and Plavix , Iron deficiency anemia (diagnosed October, non compliant with iron supplements due to constipation) CAD (status post multiple stents, CABG), 2 CVA s with residual dysarthria and right sided weakness, presented to the ED c/o having 4 episodes of loose, maroon colored stools for 3 days. Admitted for acute GI bleeding. #Acute Painless GIB with hx of diverticulosis/mass/ upper GI source, Gi is on the case , patient and the daughter who is health care proxy refusing to have any colonoscopy at this time. Discussed with the daughter in details, that patient is a high risk for re-bleed, will discontinue plavix as per cardio notes, he had his stents done a long time ago and can be discontinued safely at this point. in terms of eliquis, patient is a high risk for bleed vs Stroke since had a previous stroke with residual the right upper and has dysarthria. discussed with the daughter to keep a close eye on the patient and have him follow up with his primary by next week to repeat the Cbc and monitor his H/H and if he re-bleeds to take the patient to the nearest hospital. The daughter understands and was suggested to discontinue the Plavix. #Hx of diverticulosis: Ct of abdomen and pelvis reviewed on 08/18 --> descending colon bulking . Stool occult blood positive, patient refused colonoscopy and the health care proxy refuses colonoscopy as well. # Acute blood loss s/p one unit of PRBC , off plavix . continue protonix #hx of extensive CAD:off plavix for now as per cardio. cardio consult appreciated , dr fairbanks on the case #AFIb:continue eliquis for now, discussed with webmaster as well , agrees with the plan. dc plavix and continue Eliquis for now. #Generalized weakness poss due advanced untreated iron deficiency anemia and recent drop in Hb, will prescribe chromagen po daily # Hx of previous CVA. right sided weakness in UE and dysarthria continue Eliquis DVT Px: SCDs Recommended for the patient and the daughter if he rebleeds to go to the nearest hospital for further care, also to follow up with his primary DR. handley by next week to repeat the blood work and recheck the hemoglobin.
== END 2019-03-13 13:30 | disposition home or self-care (01) | DRG 378 ==
LOC: JER 16:23 → JERBED 17:46 → J2W 03-12 03:29
PROVIDERS: ADMIT Internal Medicine; ATTEND Internal Medicine
PROC: 30233N1 Transfusion of Nonautologous Red Blood Cells into Peripheral Vein, Percutaneous Approach (ICD-10-PCS; principal; 2019-03-11)
DX: K92.2 Gastrointestinal hemorrhage, unspecified (principal); D62 Acute posthemorrhagic anemia; I69.351 Hemiplegia and hemiparesis following cerebral infarction affecting right dominant side; I25.10 Atherosclerotic heart disease of native coronary artery without angina pectoris; I10 Essential (primary) hypertension; E78.5 Hyperlipidemia, unspecified; I48.0 Paroxysmal atrial fibrillation; Z98.61 Coronary angioplasty status; Z95.1 Presence of aortocoronary bypass graft
CPT/HCPCS: 36415; 36430; 36511; 71045-TC-FY; 80053; 81003; 82272; 82550; 83735; 84100; 84484; 85025; 85610; 85730; 86850; 86900; 86901; 86922; 93005; 93010; 99285-25; J7030; P9038; P9058

== ENCOUNTER 2019-03-27 09:47 | Inpatient (IN) | payer OTHER, BC ==
--- NOTE | 2019-03-27 10:53 | PDOC ---
History of Present Illness - General Chief Complaint: Weakness Stated Complaint: WEAKNESS Time Seen by Provider: 03/27/19 10:31 - History of Present Illness Initial Comments: 03/27/19 10:59 Patient is an 83 y/o male with PMHx of diverticulosis, Afib on Plavix , Iron deficiency anemia (diagnosed October, non compliant with iron supplements due to constipation) CAD (status post multiple stents, CABG), 2 CVAs with residual dysarthria and right sided weakness, presented to the ED c/o generalized weakness for the past week. He was recently discharged from this hospital 2 weeks ago, felt better then and started feeling week a week ago. him and his daughter didn't notice any blood or dark stool in his diapers except for one episode on Tuesday, after which daughter stopped plavix. Hasn't taken plavix since then. Refused to get colonoscopy last admission to investigate a colonic mass found by CT abdomen. Amenable to get his colonoscopy this admission by Dr. Woodard. Past History - Past Medical History Allergies/Adverse Reactions: Allergies Allergy/AdvReac Type Severity Reaction Status Date / Time No Known Allergies Allergy Verified 03/27/19 09:53 Home Medications: Ambulatory Orders Apixaban [Eliquis] 2.5 mg PO BID 05/25/18 Metoprolol Succinate [Toprol Xl] 12.5 mg PO BID 05/25/18 Rosuvastatin [Crestor -] 20 mg PO HS 05/25/18 Iron/C/Folate 6/B12/Zn/Stomach [Chromagen Softgel] 1 each PO DAILY #30 capsule 03/13/19 Anemia: Yes Asthma: No Cancer: No Cardiac Disorders: Yes (stents x 9, A-FIB, CAD, [place].) CVA: Yes (01/2013, 08/2013) COPD: No CHF: No DVT: Yes Dementia: No Diabetes: No GI Disorders: No Disorders: No HTN: Yes Hypercholesterolemia: Yes Liver Disease: No Seizures: No Thyroid Disease: No - Surgical History Abdominal Surgery: No Appendectomy: No Cardiac Surgery: Yes (BYPASS/STENTS) Cholecystectomy: No Lung Surgery: No Neurologic Surgery: No Orthopedic Surgery: No - Immunization History Immunization Up to Date: Yes - Psycho Social/Smoking Cessation Hx Smoking History: Never smoked Have you smoked in the past 12 months: No Number of Cigarettes Smoked Daily: 0 Cigars Per Day: 0 Hx Alcohol Use: No Drug/Substance Use Hx: No Substance Use Type: None Hx Substance Use Treatment: No Review of Systems - Review of Systems Able to Perform ROS?: Yes Is the patient limited [place] proficient: No Constitutional: Yes: See HPI, Weakness HEENTM: No: Symptoms Reported Respiratory: No: Symptoms reported Cardiac (ROS): No: Symptoms Reported ABD/GI: No: Symptoms Reported : No: Symptoms Reported Musculoskeletal: No: Symptoms Reported Integumentary: No: Symptoms Reported Neurological: No: Symptoms reported All Other Systems: Reviewed and Negative *Physical Exam - Vital Signs Last Vital Signs Temp Pulse Resp BP Pulse Ox 99.5 F 77 16 136/60 95 03/27/19 09:50 03/27/19 09:50 03/27/19 09:50 03/27/19 09:50 03/27/19 09:50 - Physical Exam General Appearance: Yes: Appropriately Dressed, Mild Distress, Thin HEENT: positive: EOMI, ELVI, Normal ENT Inspection Respiratory/Chest: positive: Lungs Clear, Normal Breath Sounds. negative: Chest Tender, Respiratory Distress Cardiovascular: positive: Regular Rhythm, Regular Rate, S1, S2 Gastrointestinal/Abdominal: positive: Normal Bowel Sounds, Flat, Soft. negative : Tender Musculoskeletal: positive: Normal Inspection. negative: CVA Tenderness Extremity: positive: Normal Capillary Refill, Normal Inspection, Normal Range of Motion Integumentary: positive: Pale, Cold Neurologic: positive: Fully Oriented, Alert, Normal Mood/Affect, Normal Response , Motor Strength 5/5 ED Treatment Course - LABORATORY CBC & Chemistry Diagram: 03/27/19 10:55 03/27/19 10:55 Medical Decision Making - Medical Decision Making 03/27/19 11:08 83M with pmh lower GI bleed, Will check labs to r/o need to transfuse and admit for colonoscopy. 03/27/19 15:04 All labs, rapid flu, xray and ct head negative. Will admit for observation for FUO, weakness/unable to ambulate Discharge - Discharge Information Problems reviewed: Yes Clinical Impression/Diagnosis: Weakness, Unable to ambulate, Fever of unknown origin (FUO) Condition: Guarded - Admission Yes - Follow up/Referral Referrals: Taqueria Sam MD [Primary Care Provider] - - Patient Discharge Instructions - Post Discharge Activity
[2019-03-27 11:15] LABS: BASO % 0.8 % (0-2.0); EOS % 0.2 % (0-4.5); HEMATOCRIT 27.6 % (35.4-49); HEMOGLOBIN 8.7 GM/dL (11.7-16.9); LYMPH % 8.6 % (8-40); MCH 25.4 pg (25.7-33.7); MCHC 31.6 g/dl (32.0-35.9); MEAN CELL VOLUME 80.4 fl (80-96); MEAN PLT VOLUME 7.1 fl (7.5-11.1); MONO % 6.5 % (3.8-10.2); NEUT % 83.9 % (42.8-82.8); PLATELET COUNT 307 K/MM3 (134-434); RBC 3.43 M/mm3 (4.00-5.60); RDW 30.1 % (11.9-15.9); WHITE BLOOD COUNT 7.7 K/mm3 (4.0-10.0)
[2019-03-27 11:35] LABS: PH,URINE 6.5 (5.0-8.0); URINE APPEARANCE CLEAR; URINE BILIRUBIN NEGATIVE (NEGATIVE); URINE COLOR DK YELLOW; URINE GLUCOSE (UA) NEGATIVE (NEGATIVE); URINE KETONE TRACE (NEGATIVE); URINE LEUK ESTERASE NEGATIVE (NEGATIVE); URINE NITRITE NEGATIVE (NEGATIVE); URINE PROTEIN TRACE (NEGATIVE)
[2019-03-27 11:41] LABS: ALBUMIN 3.1 g/dl (3.4-5.0); BILIRUBIN,TOTAL 0.7 mg/dL (0.2-1); BLOOD UREA NITROGEN 13.1 mg/dL (7-18); CALCIUM 8.7 mg/dL (8.5-10.1); CREATININE 0.9 mg/dL (0.55-1.3); POTASSIUM 4.2 mmol/L (3.5-5.1); TOT PROT 6.6 g/dl (6.4-8.2)
[2019-03-27 12:00] LABS: INR 1.28 (0.83-1.09); PROTHROMBIN TIME (PATIENT) 15.2 SEC (9.7-13.0)
--- NOTE | 2019-03-27 12:02 | PDOC ---
Documentation entered by Melina Rios SCRIBE, acting as scribe for Silvino Camacho MD. Silvino Camacho MD: This documentation has been prepared by the Gabriel askew Nirvannie, SCRIBE, under my direction and personally reviewed by me in its entirety. I confirm that the documentation accurately reflects all work, treatment, procedures, and medical decision making performed by me. Attending Attestation - Resident Resident Name: Jose Alejandro Nieves - ED Attending Attestation I have performed the following: I have examined & evaluated the patient, The case was reviewed & discussed with the resident, I agree w/resident's findings & plan, Exceptions are as noted - HPI HPI: 03/27/19 11:35 CC: Weakness HPI: The patient is an 83 year old male, with a significant past medical history of diverticulosis, Afib (on Plavix), iron-deficiency anemia (non compliant with Fe supplements secondary to constipation), CAD (s/p multiple cardiac stenting, CABG ), CVA x2 (residual dysarthria, right sided weakness), and recent admission to [facility] for anemia (03/11-03/13), who presents to the emergency department with 1 week of weakness. Patient endorses feeling better after his discharge but, notes a week later his symptoms onset. As per chart review, patient refused colonoscopy upon admission. He denies any recent chest pain or shortness of breath. Allergies: NKDA Primary Care Physician: Dr. Sam - Physicial Exam PE: 03/27/19 14:48 Vitals: Triage Vital signs reviewed General Appearance: No acute distress, well nourished well developed, Head: Atraumatic, Cardiac: Regular rate and rhythym, no murmurs, no rubs, no gallops, Lungs: Clear to auscultation bilateral, good air movement bilaterally, Abdomen: Soft, non distended, normal bowel sounds, non tender to palpation Extremities: Full range of motion to all extremities, no cyanosis, clubbing, or edema Skin: Warm and dry, no rashes or lesions, no rash, no petechiae Psych: Normal mood, normal affect - Medical Decision Making 03/27/19 14:49 Progressively worsening fatigue and weakness now unable to transfer unassisted markedly different from his baseline previous history anemia patient not acutely anemic here in the emergency department today Found to be febrile here in the emergency department chest x-ray with no acute infiltrate urinalysis with no evidence of UTI Neck is supple low suspicion for meningitis Influenza negative Given weakness fever will observe overnight for fever work-up
[2019-03-27] MEDS ORDERED: ACETAMINOPHEN 1000 MG/100 ML VIAL (NON FORMULARY) IVPB ONE (13:34)
[2019-03-27] MEDS ORDERED: SODIUM CHLORIDE 0.9% 1000 ML INFUS.BAG IV ONE (13:34)
[2019-03-27] MEDS ORDERED: ACETAMINOPHEN INJECTION 100 ML IVPB ONE (13:42)
--- NOTE | 2019-03-27 14:56 | EKG ---
Test Reason : Blood Pressure : / mmHG Vent. Rate : 069 BPM Atrial Rate : 069 BPM P-R Int : 248 ms QRS Dur : 106 ms QT Int : 374 ms P-R-T Axes : 084 074 -21 degrees QTc Int : 400 ms SINUS RHYTHM WITH 1ST DEGREE A-V BLOCK LOW VOLTAGE QRS CANNOT RULE OUT ANTEROSEPTAL INFARCT (CITED ON OR BEFORE 11-MAR-2019) ABNORMAL ECG WHEN COMPARED WITH ECG OF 11-MAR-2019 17:27, QUESTIONABLE CHANGE IN INITIAL FORCES OF SEPTAL LEADS NONSPECIFIC T WAVE ABNORMALITY NOW EVIDENT IN ANTERIOR LEADS Confirmed by MD BARBARA, GRACE ([id number]) on 03/27/2019 2:56:18 PM Referred By: Confirmed By:GRACE JIMENEZ MD
--- NOTE | 2019-03-27 15:04 | PN ---
Teaching Attending Note Name of Resident: Philip Leung ATTENDING PHYSICIAN STATEMENT I saw and evaluated the patient. I reviewed the resident's note and discussed the case with the resident. I agree with the resident's findings and plan as documented. SUBJECTIVE: Patient is 83yo male presented with generalized weakness, while in ED. had a fever of 101, only x1 . OBJECTIVE: Vital Signs Temperature 101 F H 03/27/19 13:34 Pulse Rate 70 03/27/19 13:34 Respiratory Rate 18 03/27/19 13:34 Blood Pressure 139/69 03/27/19 13:34 O2 Sat by Pulse Oximetry (%) 96 03/27/19 13:34 GENERAL: The patient is awake, alert, and fully oriented, in no acute distress. HEAD: Normal with no signs of trauma. EYES: PERRL, extraocular movements intact, sclera anicteric, conjunctiva clear. ENT: Ears normal, oropharynx clear without exudates, moist mucous membranes. NECK: Trachea midline, full range of motion, supple. LUNGS: Breath sounds equal, clear to auscultation bilaterally, no wheezes, no crackles, no accessory muscle use. HEART: Regular rate and rhythm, S1, S2 without murmur, rub or gallop. ABDOMEN: Soft, nontender, nondistended, normoactive bowel sounds, no guarding, no rebound, no hepatosplenomegaly, no masses. EXTREMITIES: 2+ pulses, warm, well-perfused, no edema. NEUROLOGICAL: Cranial nerves II through XII grossly intact. Normal speech, gait not observed. right sided cva PSYCH: Normal mood, normal affect. SKIN: Warm, dry, normal turgor, no rashes or lesions noted CBCD WBC 7.7 K/mm3 (4.0-10.0) 03/27/19 10:55 RBC 3.43 M/mm3 (4.00-5.60) L 03/27/19 10:55 Hgb 8.7 GM/dL (11.7-16.9) L 03/27/19 10:55 Hct 27.6 % (35.4-49) L 03/27/19 10:55 MCV 80.4 fl (80-96) 03/27/19 10:55 MCHC 31.6 g/dl (32.0-35.9) L 03/27/19 10:55 RDW 30.1 % (11.9-15.9) H 03/27/19 10:55 Plt Count 307 K/MM3 (134-434) D 03/27/19 10:55 MPV 7.1 fl (7.5-11.1) L 03/27/19 10:55 CMP Sodium 138 mmol/L (136-145) 03/27/19 10:55 Potassium 4.2 mmol/L (3.5-5.1) 03/27/19 10:55 Chloride 105 mmol/L (98-107) 03/27/19 10:55 Carbon Dioxide 28 mmol/L (21-32) 03/27/19 10:55 Anion Gap 4 MMOL/L (8-16) L 03/27/19 10:55 BUN 13.1 mg/dL (7-18) 03/27/19 10:55 Creatinine 0.9 mg/dL (0.55-1.3) 03/27/19 10:55 Random Glucose 132 mg/dL (74-106) H 03/27/19 10:55 Calcium 8.7 mg/dL (8.5-10.1) 03/27/19 10:55 Total Bilirubin 0.7 mg/dL (0.2-1) 03/27/19 10:55 AST 14 U/L (15-37) L 03/27/19 10:55 ALT 8 U/L (13-61) L 03/27/19 10:55 Alkaline Phosphatase 95 U/L (45-117) 03/27/19 10:55 Total Protein 6.6 g/dl (6.4-8.2) 03/27/19 10:55 Albumin 3.1 g/dl (3.4-5.0) L 03/27/19 10:55 CARDIAC ENZYMES Troponin I 0.02 ng/ml (0.00-0.05) 03/27/19 10:55 Home Medications Medication Instructions Recorded Apixaban [Eliquis] 2.5 mg PO BID 05/25/18 Metoprolol Succinate [Toprol Xl] 12.5 mg PO BID 05/25/18 Rosuvastatin [Crestor -] 20 mg PO HS 05/25/18 Iron/C/Folate 6/B12/Zn/Stomach 1 each PO DAILY #30 capsule 03/13/19 [Chromagen Softgel] ASSESSMENT AND PLAN: Patient is an 83yo DNR/DNI male with PMHx of diverticulosis, Afib on Eliquis and Plavix , Iron deficiency anemia (diagnosed October, non compliant with iron supplements due to constipation) CAD (status post multiple stents, CABG), 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 #Generalized weakness but hemoglobin is stable monitor h/h #Iron deficinecy anemia on Chromagen continue #Hx Acute Painless GIB with hx of diverticulosis/mass/ upper GI source, hemoglobin is stable now, last admission patient refused colonoscopy but wants to have it done now. #Hx of diverticulosis: Ct of abdomen and pelvis reviewed on 08/18 --> descending colon bulking . Stool occult blood positive # hx of Acute blood loss last admission s/p one unit of PRBC , monitor H/H #hx of extensive CAD:on plavix #AFIb:continue eliquis # Hx of previous CVA. right sided weakness in UE and dysarthria fall precaution PT ordered DVT Px: on eliquis
--- NOTE | 2019-03-27 15:13 | HP ---
CHIEF COMPLAINT: Generalized Weakness PCP: Dr Sam HISTORY OF PRESENT ILLNESS: Pt is an 83 y/o M with a significant past medical history of M.I (age 37), CABG (1990), CAD (8 stents), stroke (2008 and 2012) with right sided residual weakness who presented to [facility] with his daughter due to increasing weakness for the past 1 week. Daughter at bedside assisting in history. Pt was recently admitted to our Hospital 2 weeks ago for a GI bleed. Pt received 2U of PRBCs on that admission. Pt was advised to undergo a colonoscopy however did not want to undergo the procedure as he felt well. Daughter states that pt is normally active and carries out ADLs by himself. However, for the past 1 week, pt has needed assistance going to the bathroom, feeding himself, and getting out of bed. Denies headache, nausea/vomiting, shortness of breath, chest pain, numbness or tingling, or recent illness. ER course was notable for: (1) Head CT- No acute intracranial pathology. Chronic left cerebral infarct. Chronic lacunar infarct-right fernandez radiata. 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 (2) WBC WNL (3) CXR- No acute pathology Allergies No Known Allergies Allergy (Verified 03/27/19 09:53) HOME MEDICATIONS: Home Medications Medication Instructions Recorded Apixaban [Eliquis] 2.5 mg PO BID 05/25/18 Metoprolol Succinate [Toprol Xl] 12.5 mg PO BID 05/25/18 Rosuvastatin [Crestor -] 20 mg PO HS 05/25/18 Iron/C/Folate 6/B12/Zn/Stomach 1 each PO DAILY #30 capsule 03/13/19 [Chromagen Softgel] REVIEW OF SYSTEMS Denies all. Daughter endorses he has been rather weak for past 1 week. PHYSICAL EXAMINATION Vital Signs - 24 hr 03/27/19 03/27/19 09:50 13:34 Temperature 99.5 F 101 F H Pulse Rate 77 Pulse Rate [ 70 Apical] Respiratory 16 18 Rate Blood Pressure 136/60 Blood Pressure 139/69 [Left Arm] O2 Sat by Pulse 95 96 Oximetry (%) GENERAL: NAD HEAD: Normal with no signs of trauma. EYES: EOMI Sclera Clear EARS, NOSE, THROAT: MMM NECK: Supple LUNGS: CTA b/l HEART: +Systolic Murmur. RRR S1S2 ABDOMEN: Ssoft nondistended and nontender MUSCULOSKELETAL: FROM UPPER EXTREMITIES: Right hand contracture LOWER EXTREMITIES: 2+ pulses, warm, well-perfused. No calf tenderness. No peripheral edema. NEUROLOGICAL: Strength 5/5 LUE. Biceps/Triceps 5+. RUE 3/5 strength. Biceps/ Triceps 3+. Facial droop right lower face. Follows commands appropriately. Left lower extremity 5/5 strength. RLE 4/5 strength. Plantar dorsiflexion+ both feet. PSYCHIATRIC: Cooperative. Good eye contact. Appropriate mood and affect. SKIN: No rashes or lesions appreciated Laboratory Results - last 24 hr 03/27/19 03/27/19 03/27/19 10:55 10:55 10:55 WBC 7.7 RBC 3.43 L Hgb 8.7 L Hct 27.6 L MCV 80.4 MCH 25.4 L MCHC 31.6 L RDW 30.1 H Plt Count 307 D MPV 7.1 L Absolute Neuts (auto) 6.5 Neutrophils % 83.9 H D Lymphocytes % 8.6 D Monocytes % 6.5 Eosinophils % 0.2 D Basophils % 0.8 Nucleated RBC % 0 PT with INR 15.20 H INR 1.28 H PTT (Actin FS) 31.0 Sodium 138 Potassium 4.2 Chloride 105 Carbon Dioxide 28 Anion Gap 4 L BUN 13.1 Creatinine 0.9 Est GFR (CKD-EPI)AfAm 90.58 Est GFR (CKD-EPI)NonAf 78.15 Random Glucose 132 H Calcium 8.7 Total Bilirubin 0.7 AST 14 L ALT 8 L Alkaline Phosphatase 95 Troponin I 0.02 Total Protein 6.6 Albumin 3.1 L Urine Color Urine Appearance Urine pH Ur Specific [place] Urine Protein Urine Glucose (UA) Urine Ketones Urine Blood Urine Nitrite Urine Bilirubin Urine Urobilinogen Ur Leukocyte Esterase Influenza A (Rapid) Influenza B (Rapid) Blood Type Antibody Screen 03/27/19 03/27/19 03/27/19 10:55 11:10 13:45 WBC RBC Hgb Hct MCV MCH MCHC RDW Plt Count MPV Absolute Neuts (auto) Neutrophils % Lymphocytes % Monocytes % Eosinophils % Basophils % Nucleated RBC % PT with INR INR PTT (Actin FS) Sodium Potassium Chloride Carbon Dioxide Anion Gap BUN Creatinine Est GFR (CKD-EPI)AfAm Est GFR (CKD-EPI)NonAf Random Glucose Calcium Total Bilirubin AST ALT Alkaline Phosphatase Troponin I Total Protein Albumin Urine Color Dk yellow Urine Appearance Clear Urine pH 6.5 Ur Specific [place]side 1.023 Urine Protein Trace Urine Glucose (UA) Negative Urine Ketones Trace H Urine Blood Negative Urine Nitrite Negative Urine Bilirubin Negative Urine Urobilinogen 2.0 Ur Leukocyte Esterase Negative Influenza A (Rapid) Negative Influenza B (Rapid) Negative Blood Type AB POSITIVE Antibody Screen Negative ASSESSMENT/PLAN: Pt is an 83 y/o M with a significant past medical history of M.I (age 37), Atrial Fibrillation, CABG (1990), CAD (8 stents), stroke (2008 and 2012) with right sided residual weakness who presented to [facility] with his daughter due to increasing weakness for the past 1 week. #Generalized Weakness 2/2 unclear etiology -H/H within patient's normal range--> 8.7/26/10. Last admission---> 8.2/25/07 -CBC/CMP in am -Head CT neg for acute pathology -Urine Clean -Blood/Urine Cultures pending - CTAP 07/2018--> cannot rule out lesion in distal descending colon. Possibility of malignancy which could cause weakness. Will need Colonoscopy. GI Consulted. Appreciate Recs #CAD -Resume home dose Metoprolol # Atrial Fibrillation -Hemoglobin 8.7. May also undergo Colonoscopy this admission. Will hold Eliquis at this juncture and place patient on SCDs #FEN No standing Fluids Monitor Electrolytes Regular Diet #Dispo: Med-Surg #DVT ppx: SCDs Visit type - Emergency Visit Emergency Visit: Yes ED Registration Date: 03/27/19 Care time: The patient presented to the Emergency Department on the above date and was hospitalized for further evaluation of their emergent condition. - New Patient This patient is new to me today: Yes Date on this admission: 03/27/19 - Critical Care Critical Care patient: No ATTENDING PHYSICIAN STATEMENT I saw and evaluated the patient. I reviewed the resident's note and discussed the case with the resident. I agree with the resident's findings and plan as documented. SUBJECTIVE: OBJECTIVE: ASSESSMENT AND PLAN:
[2019-03-27] MEDS ORDERED: metoPROLOL SUCCINATE 25 MG TAB.SR.24H (FP) PO SCH (22:00)
[2019-03-28] MEDS: ROSUVASTATIN CA 20 MG TABLET (FP) PO SCH (00:30)
[2019-03-28] MEDS ORDERED: PT OWN MED DRAWER 7, Y5N ONE (00:45)
[2019-03-28 07:17] LABS: BASO % 1.9 % (0-2.0); EOS % 1.3 % (0-4.5); HEMATOCRIT 27.9 % (35.4-49); HEMOGLOBIN 8.6 GM/dL (11.7-16.9); LYMPH % 19.1 % (8-40); MCH 25.4 pg (25.7-33.7); MCHC 30.6 g/dl (32.0-35.9); MEAN CELL VOLUME 82.8 fl (80-96); MONO % 5.7 % (3.8-10.2); PLATELET COUNT 296 K/MM3 (134-434); RBC 3.37 M/mm3 (4.00-5.60); RDW 29.7 % (11.9-15.9)
[2019-03-28 07:41] LABS: INR 1.26 (0.83-1.09); PROTHROMBIN TIME (PATIENT) 14.9 SEC (9.7-13.0)
[2019-03-28 07:43] LABS: ACTIVATED PTT 25.4 SECONDS (25.2-36.5)
[2019-03-28 07:50] LABS: ALBUMIN 2.8 g/dl (3.4-5.0); BILIRUBIN,TOTAL 0.8 mg/dL (0.2-1); BLOOD UREA NITROGEN 11.4 mg/dL (7-18); CALCIUM 8.9 mg/dL (8.5-10.1); CREATININE 0.7 mg/dL (0.55-1.3); MAGNESIUM 2.1 mg/dL (1.8-2.4); PHOSPHOROUS 2.8 mg/dL (2.5-4.9); POTASSIUM 3.7 mmol/L (3.5-5.1); TOT PROT 6.2 g/dl (6.4-8.2)
[2019-03-28] MEDS: metoPROLOL SUCCINATE 25 MG TAB.SR.24H (FP) PO SCH (09:56)
[2019-03-28] MEDS ORDERED: SODIUM CHLORIDE 1,000 ML IV SCH (10:30)
[2019-03-28 11:38] LABS: ANISOCYTOSIS 1+; MACROCYTOSIS 0; PLATELET ESTIMATE NORMAL
--- NOTE | 2019-03-28 14:27 | CON.GI ---
Consult Consult Specialty:: Gastroenterology - History of Present Illness Chief Complaint: Anemia, abnormal CT imaging History of Present Illness: 83yo male h/o CAD s/p CABG, PCI, CVA, A fib on eliquis and plavix presenting with increased weakness. Pt recently hospitalized and seen by GI on 03/12/19 for intermittent rectal bleeding. Had prior CT in 07/2018 revealing bulky appearance at descending colon and was advised colonoscopy however refused and was advised outpt follow up. Pt aphasic, history limited, mostly answers yes/no, though reports weakness prompting ED evaluation. Fever also noted in ED yesterday. Denies abdominal pain or nausea/vomiting. Denies blood in stools. Denies prior colonoscopy. Now states he is agreeable to have the procedure. No known family h/o colon ca. Worsening anemia with microcytosis noted over the past 1-2 years. Pt has been on iron supplementation. 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 History of Recent Travel: No Home Medications - Allergies Allergies/Adverse Reactions: Allergies Allergy/AdvReac Type Severity Reaction Status Date / Time No Known Allergies Allergy Verified 03/27/19 09:53 - Home Medications Home Medications: Ambulatory Orders Apixaban [Eliquis] 2.5 mg PO BID 05/25/18 Rosuvastatin [Crestor -] 20 mg PO HS 05/25/18 Iron/C/Folate 6/B12/Zn/Stomach [Chromagen Softgel] 1 each PO DAILY #30 capsule 03/13/19 Clopidogrel Bisulfate [Plavix] 75 mg PO DAILY 03/27/19 Ferrous Sulfate 325 mg PO DAILY 03/27/19 Metoprolol Succinate 25 mg PO DAILY 03/27/19 Review of Systems - Review of Systems Constitutional: reports: Weakness Cardiovascular: reports: No Symptoms Respiratory: reports: No Symptoms Gastrointestinal: reports: No Symptoms Physical Exam-GI Vital Signs: Vital Signs Temperature 98.1 F 03/28/19 06:15 Pulse Rate 65 03/28/19 06:15 Respiratory Rate 18 03/28/19 06:15 Blood Pressure 131/52 L 03/28/19 06:15 O2 Sat by Pulse Oximetry (%) 98 03/28/19 00:30 Constitutional: Yes: Well Nourished, No Distress, Calm Cardiovascular: Yes: WNL, Regular Rate and Rhythm Respiratory: Yes: WNL, Regular, CTA Bilaterally ...Palpate: Yes: Other (Abd soft, nt, nd Rectal exam revealing brown stool) Labs: CBC, BMP 03/28/19 05:43 03/28/19 05:43 INR, PTT INR 1.26 (0.83-1.09) H 03/28/19 05:43 Imaging - Results Cat Scan: Report Reviewed, Image Reviewed Problem List - Problems (1) Anemia Assessment/Plan: 83yo male h/o CAD s/p CABG, PCI, CVA, A fib on eliquis and plavix presenting with increased weakness with evidence of iron deficiency anemia. No overt bleeding, Hb stable. Pt had prior CT imaging on 07/2018 revealing bulky appearance at left colon cannot exclude underlying colonic malignancy. Pt advised colonoscopy at recent hospitalization however refused, now agreeable to have the procedure. -Discussed importance of colonoscopy to evaluate CT findings and for anemia. EGD may be considered if colonoscopy unrevealing. Discussed risks/benefits of endoscopy with pt and pts daughter (by phone) who verbalized understanding and want to proceed. Explained that procedure would likely be scheduled tentatively on Tuesday. Pts daughter also confirmed that pt is now off plavix, and last dose of eliquis was 1 week ago. -Continue to hold antithrombotics if no contraindication from cardiac standpoint. If a/c deemed indicated would prefer heparin which would need to be held 4-6 hours prior to procedure -Resume previous diet today as tolerated -Clear liquid diet on Tuesday -Golytely prep on Tuesday for tentative colonoscopy on Tuesday -Please check am labs on day of planned procedure (cbc, bmp, pt/inr) If change in clinical status or questions please call GI. Dr. Everett to cover through the weekend Code(s): D64.9 - ANEMIA, UNSPECIFIED Qualifiers: Anemia type: iron deficiency Iron deficiency anemia type: chronic blood loss Qualified Code(s): D50.0 - Iron deficiency anemia secondary to blood loss (chronic)
[2019-03-28] MEDS ORDERED: HEPARIN NA (PORCINE) 5,000 UNITS/ML 1ML VIAL IVPUSH PRN ×2 (16:58)
--- NOTE | 2019-03-28 17:20 | PN ---
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 Currently, pt is feeling better, c /o of no fevers or overnight events. Admits to bowel movement but no changes in mentation reported or noticed. Denies f/c/n/v/d/sob/chest pain. OBJECTIVE: Vital Signs Period Temp Pulse Resp BP Sys/Greer Pulse Ox Last 24 Hr 97.4 F-98.1 F 60-65 18-18 125-131/50-55 97-98 GENERAL: The patient is awake, alert, and fully oriented, in no acute distress. Difficult to understand, EYES: PERRL, extraocular movements intact, sclera anicteric, conjunctiva clear. No ptosis. ENT: oropharynx clear without exudates, dry mucous membranes. NECK: full range of motion, supple. LUNGS: Breath sounds equal, clear to auscultation bilaterally, no wheezes, no crackles, HEART: Regular rate and rhythm, S1, S2 without murmur, rub or gallop. ABDOMEN: Soft, nontender, nondistended, normoactive bowel sounds, no guarding EXTREMITIES: 2+ pulses, warm, well-perfused, no edema. Rectal: NANO: Black stool on gloves. No visible blood. No hemorrhoids- external or internal noted. No fissures or skin tags. NEUROLOGICAL: Cranial nerves II through XII grossly intact. Facial effacement on the right side- chronic. Right sided UE weakness and deformity noted PSYCH: Normal mood, normal affect. SKIN: Warm, dry, normal turgor, Laboratory Results - last 24 hr CBC,CMP WBC 6.0 K/mm3 (4.0-10.0) 03/28/19 05:43 RBC 3.37 M/mm3 (4.00-5.60) L 03/28/19 05:43 Hgb 8.6 GM/dL (11.7-16.9) L 03/28/19 05:43 Hct 27.9 % (35.4-49) L 03/28/19 05:43 MCV 82.8 fl (80-96) 03/28/19 05:43 MCH 25.4 pg (25.7-33.7) L 03/28/19 05:43 MCHC 30.6 g/dl (32.0-35.9) L 03/28/19 05:43 RDW 29.7 % (11.9-15.9) H 03/28/19 05:43 Plt Count 296 K/MM3 (134-434) 03/28/19 05:43 MPV 8.0 fl (7.5-11.1) D 03/28/19 05:43 Absolute Neuts (auto) 4.3 K/mm3 (1.5-8.0) 03/28/19 05:43 Neutrophils % 72.0 % (42.8-82.8) 03/28/19 05:43 Lymphocytes % 19.1 % (8-40) D 03/28/19 05:43 Monocytes % 5.7 % (3.8-10.2) 03/28/19 05:43 Eosinophils % 1.3 % (0-4.5) D 03/28/19 05:43 Basophils % 1.9 % (0-2.0) 03/28/19 05:43 Nucleated RBC % 0 % (0-0) 03/28/19 05:43 Hypochromia 1+ 03/28/19 05:43 Platelet Estimate Normal 03/28/19 05:43 Polychromasia 1+ 03/28/19 05:43 Poikilocytosis 1+ 03/28/19 05:43 Anisocytosis 1+ 03/28/19 05:43 Microcytosis 1+ 03/28/19 05:43 Macrocytosis 0 03/28/19 05:43 Schuyler Cells 1+ 03/28/19 05:43 Sodium 140 mmol/L (136-145) 03/28/19 05:43 Potassium 3.7 mmol/L (3.5-5.1) 03/28/19 05:43 Chloride 106 mmol/L (98-107) 03/28/19 05:43 Carbon Dioxide 27 mmol/L (21-32) 03/28/19 05:43 Anion Gap 7 MMOL/L (8-16) L 03/28/19 05:43 BUN 11.4 mg/dL (7-18) 03/28/19 05:43 Creatinine 0.7 mg/dL (0.55-1.3) 03/28/19 05:43 Est GFR (CKD-EPI)AfAm 100.44 03/28/19 05:43 Est GFR (CKD-EPI)NonAf 86.66 03/28/19 05:43 Random Glucose 78 mg/dL (74-106) 03/28/19 05:43 Calcium 8.9 mg/dL (8.5-10.1) 03/28/19 05:43 Phosphorus 2.8 mg/dL (2.5-4.9) 03/28/19 05:43 Magnesium 2.1 mg/dL (1.8-2.4) 03/28/19 05:43 Iron 16 ug/dL (50-175) L 03/28/19 05:43 TIBC 282 ug/dL (250-450) 03/28/19 05:43 Iron Saturation 5 % (17.5-39) L 03/28/19 05:43 Unsaturated IBC 266 ug/dL (200-275) 03/28/19 05:43 Ferritin 137.7 ng/ml (8-388) 03/28/19 05:43 Total Bilirubin 0.8 mg/dL (0.2-1) 03/28/19 05:43 AST 15 U/L (15-37) 03/28/19 05:43 ALT 9 U/L (13-61) L 03/28/19 05:43 Alkaline Phosphatase 89 U/L (45-117) 03/28/19 05:43 Troponin I 0.02 ng/ml (0.00-0.05) 03/27/19 10:55 Total Protein 6.2 g/dl (6.4-8.2) L 03/28/19 05:43 Albumin 2.8 g/dl (3.4-5.0) L 03/28/19 05:43 Active Medications Current Medications Heparin Sodium (Porcine) (Heparin -) 1,000 unit IVPUSH PRN PRN PRN Reason: Heparin Heparin Sodium (Porcine) (Heparin -) 5,000 unit IVPUSH PRN PRN PRN Reason: Heparin Sodium Chloride (Normal Saline -) 1,000 mls @ 60 mls/hr IV ASDIR RAUL Stop: 03/29/19 03:09 Last Admin: 03/28/19 12:53 Dose: 60 mls/hr Heparin Sodium (Porcine) 25, (000 unit/ Sodium Chloride) 500 mls @ 16 mls/hr IV TITR RAUL; Protocol Metoprolol Succinate (Toprol Xl -) 25 mg PO DAILY [facility] Last Admin: 03/28/19 09:56 Dose: 25 mg Non-Formulary Medication (Iron/C/Folate 6/B12/Zn/Stomach [Chromagen Softgel]) 1 each PO DAILY [facility] Rosuvastatin Calcium (Crestor -) 20 mg PO [facility] Last Admin: 03/28/19 00:30 Dose: 20 mg Home Medications Medication Instructions Recorded Apixaban [Eliquis] 2.5 mg PO BID 05/25/18 Rosuvastatin [Crestor -] 20 mg PO HS 05/25/18 Iron/C/Folate 6/B12/Zn/Stomach 1 each PO DAILY #30 capsule 03/13/19 [Chromagen Softgel] Clopidogrel Bisulfate [Plavix] 75 mg PO DAILY 03/27/19 Ferrous Sulfate 325 mg PO DAILY 03/27/19 Metoprolol Succinate 25 mg PO DAILY 03/27/19 Microbiology 03/27/19 13:55 Blood - Peripheral Venous Blood Culture - Preliminary NO GROWTH OBTAINED AFTER 24 HOURS, INCUBATION TO CONTINUE FOR 4 DAYS. 03/27/19 13:45 Blood - Peripheral Venous Blood Culture - Preliminary NO GROWTH OBTAINED AFTER 24 HOURS, INCUBATION TO CONTINUE FOR 4 DAYS. 03/27/19 11:10 Urine - Urine Clean Catch Urine Culture - Final NO GROWTH OBTAINED ASSESSMENT/PLAN: 83 y/o M, pmh of M.I(age 37), CABG (1990), CAD (8 stents), stroke (2008 and 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 #Generalized weakness likely 2/2 to abdominal malignancy seen on CT vs infectious CTAP 08/18- cannot rule out lesion in distal descending colon. Possibility of malignancy which could cause weakness. Hb is stable today 8.7, similar to last admission 8.5 Hb Flu swabs negative BCx negative and UCx negative CT chest ordered- will f/u SOBT positive EGD and Colonoscopy for tuesday Bowel prep for tuesday night Clear liquids on Tuesday #A-Fib AC started with Heparin drip- will hold 4-6 hours prior to procedures on tuesday Will hold Eliquis As per pt's daughter, elliquis dose was missed for a week #Stroke hx heparin drip #CAD Resume home dose Metoprolol Plavix supposedly d/tere at previous admission as per daughter #FEN IVF at 59 Monitor Electrolytes sod/diabetic diet #DVT ppx: SCDs Dispo: f/u CT chest, cont diet, prep for endoscopy/colonoscopy Daughter Leticia Visit type - Emergency Visit Emergency Visit: Yes ED Registration Date: 03/27/19 Care time: The patient presented to the Emergency Department on the above date and was hospitalized for further evaluation of their emergent condition. - New Patient This patient is new to me today: Yes Date on this admission: 03/28/19 - Critical Care Critical Care patient: No - Discharge Referral Referred to [facility] No ATTENDING PHYSICIAN STATEMENT I saw and evaluated the patient. I reviewed the resident's note and discussed the case with the resident. I agree with the resident's findings and plan as documented. SUBJECTIVE: OBJECTIVE: ASSESSMENT AND PLAN:
--- NOTE | 2019-03-28 17:38 | PN ---
Teaching Attending Note Name of Resident: Coral Perez ATTENDING PHYSICIAN STATEMENT I saw and evaluated the patient. I reviewed the resident's note and discussed the case with the resident. I agree with the resident's findings and plan as documented. SUBJECTIVE: denies any pain, denies diarrhea, or N/V. denies cough or SOB OBJECTIVE: NAD, awake, alert, aphasic, answeres yes/no with minimal verbalization . knows he is in hospital and his age. pleasant and cooperative . erythematous oropharynx. CV: RRR.2/6 SM at LLSB . ABd: soft, NT, ND , NL BS . bruit heard in Epigastric area and to a lesser extent 2 cm left to the umbilicus . aortic pulsation is felt Ext : No edema or erythema Skin : no decub ulcer. black stool around rectum NEuro: Effacement in R nasolabial fold. tongue at mid line. uvula at mid line, EOMI, round equal pupils, reactive to light strength : RUE: shoulder shrug 4/5 , abduction 2/5, flexion 2/5, biceps 4/5, triceps 4/5 . LUE: shoulder shrug 5/5 , abduction 5/5, flexion5/5, biceps 5/5, triceps 5/5 . RLE: hip flexion 4/5 , knee flexion /extension 5/5 , ankle dorsiflexion / plantar flexion 5/5. LLE: hip flexion 5/5, knee flexion /extension 5/5 , ankle dorsiflexion / plantar flexion 5/5. ASSESSMENT AND PLAN: 83 y/o man with h/o A fib , on AC, CVA x 2, iron def anemia, CAD s/p stents, CABG, GI bleed, recently diagnosed possible L colon mass, R sided weakness and aphasia, and other medical problems who presented due an episode of rectal bleed and weakness x 1 week 1- Rectal bleed. could be lower from possible descending colon mass. need to r/ o colon cance. stool at rectum was black though. - EGD and colo on Tuesday - no longer on plavix - will place on heparin gtt in mean time given his h/o stroke x 2. will stop [ prior to procedure 2- Fever. happened in ER and did not recur. per family, no fever at home . has no skin ulcers/decubs, neg UA. Cxray can't completely r/o RLL infiltrate - obtain CT of chest - fever could be tumor fever - will not treat with no source - follow blood cx. 3- H/o A fib: - start heparin gtt awaiting EGD/colo - cont toprol 4- H/o CVA: neuro exam as above. - cont statin - AC 5- audible bruit in abd, paplpable pulse in epigastric area. - order US of aorta dispo: HLOC .
[2019-03-28] MEDS ORDERED: HEPARIN NA (PORCINE) 5,000 UNITS/ML 1ML VIAL ONE (18:48)
[2019-03-28] MEDS: HEPARIN - 25,000 UNIT in SODIUM CHLORIDE 495 ML IV SCH (19:14)
[2019-03-29] MEDS: ROSUVASTATIN CA 20 MG TABLET (FP) PO SCH ×2 (01:00→21:37)
[2019-03-29 09:16] LABS: BLOOD UREA NITROGEN 11.8 mg/dL (7-18); CALCIUM 8.3 mg/dL (8.5-10.1); CREATININE 0.7 mg/dL (0.55-1.3); POTASSIUM 3.3 mmol/L (3.5-5.1)
[2019-03-29 11:22] LABS: HEMATOCRIT 24.4 % (35.4-49); HEMOGLOBIN 7.6 GM/dL (11.7-16.9); MCH 25.4 pg (25.7-33.7); MCHC 31.2 g/dl (32.0-35.9); MEAN CELL VOLUME 81.3 fl (80-96); MEAN PLT VOLUME 7.7 fl (7.5-11.1); PLATELET COUNT 296 K/MM3 (134-434); RBC 2.99 M/mm3 (4.00-5.60); RDW 29.8 % (11.9-15.9)
[2019-03-29] MEDS ORDERED: cefTRIAXone SODIUM 1 GM VIAL ONE (11:35)
[2019-03-29] MEDS ORDERED: DEXTROSE 5%-WATER - 50 ML IVPB ONE (11:36)
[2019-03-29] MEDS: CEFTRIAXONE 1 GM in DEXTROSE 5%-WATER - 50 ML IVPB SCH (11:51)
[2019-03-29] MEDS: AZITHROMYCIN IVPB 500 MG/250 ML BAG IVPB SCH (11:51)
[2019-03-29] MEDS: metoPROLOL SUCCINATE 25 MG TAB.SR.24H (FP) PO SCH (11:52)
--- NOTE | 2019-03-29 13:39 | PN.GI ---
GI Progress Note Subjective: no rectal bleeding, resting comfortably,CT abnormal left colon, off Plavix and Eliquis - Objective Vital Signs: Vital Signs Temperature 98 F 03/29/19 11:56 Pulse Rate 98 H 03/29/19 11:56 Respiratory Rate 18 03/29/19 11:56 Blood Pressure 130/58 L 03/29/19 11:56 O2 Sat by Pulse Oximetry (%) 96 03/28/19 22:00 Constitutional: Well Nourished Eyes: Yes: Conjunctiva Clear HENT: Yes: Atraumatic Neck: Yes: Supple Cardiovascular: Yes: Regular Rate and Rhythm Respiratory: Yes: CTA Bilaterally ...Palpate: Yes: Soft. No: Firm/Rigid, Guarding, Hepatomegaly, Mass, Pulsatile Mass, Splenomegaly Labs: CBC, BMP 03/29/19 08:01 03/29/19 08:13 INR, PTT INR 1.26 (0.83-1.09) H 03/28/19 05:43 Problem List - Problems (1) Rectal bleeding Assessment/Plan: abnormal CT R> for colonoscopy Code(s): K62.5 - HEMORRHAGE OF ANUS AND RECTUM
--- NOTE | 2019-03-29 14:55 | PN ---
Teaching Attending Note Name of Resident: Philip Leung ATTENDING PHYSICIAN STATEMENT I saw and evaluated the patient. I reviewed the resident's note and discussed the case with the resident. I agree with the resident's findings and plan as documented. SUBJECTIVE: No fever or chills. No CARLOS. No pain. had a BM last night . OBJECTIVE: NAD, awake, alert, aphasic, answered yes/no CV: RRR.2/6 SM at LLSB . ABd: soft, NT, ND , NL BS . bruit heard in Epigastric area and to a lesser extent 2 cm left to the umbilicus . Ext: No edema or erythema ASSESSMENT AND PLAN: 83 y/o man with h/o A fib , on AC, CVA x 2, iron def anemia, CAD s/p stents, CABG, GI bleed, recently diagnosed possible L colon mass, R sided weakness and aphasia, and other medical problems who presented due an episode of rectal bleed and weakness x 1 week 1- Rectal bleed. could be due to colon mass - EGD and colo on Tuesday - will stop heparin gtt before procedure 2- Fever. probably due to PNA ( CT of chest reviewed) . - check echo due to murmur - start ceftriaxone and azithro 3- H/o A fib: - cont heparin gtt pending EGD/colo - cont toprol 4- H/o CVA: neuro exam as above. - cont statin - AC 5- audible bruit in abd, paplpable pulse in epigastric area. - US of aorta with no aneurysm abut with astherosclertotic plaques Dispo: HLOC . d/w patient and his daughter at bedside
--- NOTE | 2019-03-29 17:32 | PN ---
Physical Exam: SUBJECTIVE: Patient seen and examined at bedside. Daughter at bedside as well. Pt endorses feeling and doing well. No acute events overnight. OBJECTIVE: Vital Signs Period Temp Pulse Resp BP Sys/Greer Pulse Ox Last 24 Hr 98 F-99.5 F 60-98 18-18 116-154/48-96 96-96 GENERAL: NAD HEAD: AT/NC EYES: EOMI Sclera Clear. NECK: Trachea midline, full range of motion, supple. LUNGS: CTA b/l HEART: RRR S1S2. +Systolic Murmur. ABDOMEN: Soft NDNT EXTREMITIES: 2+ pulses, warm, well-perfused, no edema. NEUROLOGICAL: Right sided residual weakness. AAOx3 SKIN: Warm, dry, normal turgor, no rashes or lesions noted Laboratory Results - last 24 hr 03/29/19 03/29/19 03/29/19 01:15 08:01 08:13 WBC 6.0 RBC 2.99 L Hgb 7.6 L Hct 24.4 L MCV 81.3 MCH 25.4 L MCHC 31.2 L RDW 29.8 H Plt Count 296 MPV 7.7 PTT (Actin FS) 65.2 H Sodium 141 Potassium 3.3 L Chloride 108 H Carbon Dioxide 24 Anion Gap 8 BUN 11.8 Creatinine 0.7 Est GFR (CKD-EPI)AfAm 100.44 Est GFR (CKD-EPI)NonAf 86.66 Random Glucose 90 Calcium 8.3 L 03/29/19 08:13 WBC RBC Hgb Hct MCV MCH MCHC RDW Plt Count MPV PTT (Actin FS) 50.4 H Sodium Potassium Chloride Carbon Dioxide Anion Gap BUN Creatinine Est GFR (CKD-EPI)AfAm Est GFR (CKD-EPI)NonAf Random Glucose Calcium Active Medications Generic Name Dose Route Start Last Admin Trade Name Freq PRN Reason Stop Dose Admin Heparin Sodium (Porcine) 1,000 unit 03/28/19 16:58 Heparin - IVPUSH PRN PRN Heparin Heparin Sodium (Porcine) 5,000 unit 03/28/19 16:58 03/28/19 19:15 Heparin - IVPUSH 5,000 unit PRN PRN Administration Heparin Heparin Sodium (Porcine) 25, 500 mls @ 16 mls/hr 03/28/19 17:00 03/28/19 19: 14 000 unit/ Sodium Chloride IV 800 unit/hr TITR RAUL 16 mls/hr Administration Protocol 800 UNIT/HR Azithromycin 500 mg in 250 mls @ 250 mls/hr 03/29/19 10:00 03/29/19 11:51 Zithromax 500mg Ivpb (Pre-Docked) IVPB 250 mls/hr DAILY RAUL Administration Ceftriaxone Sodium 1 gm/ 50 mls @ 100 mls/hr 03/29/19 10:00 03/29/19 11:51 Dextrose IVPB 100 mls/hr DAILY RAUL Administration Metoprolol Succinate 25 mg 03/28/19 10:00 03/29/19 11:52 Toprol Xl - PO 25 mg DAILY RAUL Administration Non-Formulary Medication 1 each 03/28/19 10:00 Iron/C/Folate 6/B12/Zn/Stomach [Chromagen Softgel] PO DAILY RAUL Polyethylene Glycol 255 gm 04/01/19 08:00 Miralax (For Bowel Prep) - PO 04/01/19 08:01 ONCE ONE Rosuvastatin Calcium 20 mg 03/27/19 22:00 03/29/19 01:00 Crestor - PO 20 mg HS RAUL Administration Sodium Phosphate 133 ml 04/02/19 04:00 Fleet Adult Rectal Enema - CO 04/02/19 04:01 ONCE ONE ASSESSMENT/PLAN: 83 y/o M, pmh of M.I(age 37), CABG (1990), CAD (8 stents), stroke (2008 and 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 #Generalized weakness likely 2/2 to abdominal malignancy seen on CT vs infectious CTAP 08/18- cannot rule out lesion in distal descending colon. Possibility of malignancy which could cause weakness. Hb today 7.6 Flu swabs negative BCx negative and UCx negative CT chest ordered---> Likely infiltrate RLL. May be culprit for fevers. Started Cef+Azithro SOBT positive EGD and Colonoscopy for tuesday Bowel prep for tuesday night Clear liquids on Tuesday #A-Fib AC started with Heparin drip- will hold 4-6 hours prior to procedures on tuesday Will hold Eliquis As per pt's daughter, elliquis dose was missed for a week -Echo to assess for valvular vegetations in light of fevers. #Stroke hx heparin drip #CAD Resume home dose Metoprolol Plavix supposedly d/tere at previous admission as per daughter #FEN No Fluids Monitor Electrolytes sod/diabetic diet #DVT ppx: SCDs Dispo: med-surg Daughter Leticia Visit type - Emergency Visit Emergency Visit: Yes ED Registration Date: 03/27/19 Care time: The patient presented to the Emergency Department on the above date and was hospitalized for further evaluation of their emergent condition. - New Patient This patient is new to me today: No - Critical Care Critical Care patient: No - Discharge Referral Referred to [facility] Med P.C.: No ATTENDING PHYSICIAN STATEMENT I saw and evaluated the patient. I reviewed the resident's note and discussed the case with the resident. I agree with the resident's findings and plan as documented. SUBJECTIVE: OBJECTIVE: ASSESSMENT AND PLAN:
[2019-03-29] MEDS: HEPARIN - 25,000 UNIT in SODIUM CHLORIDE 495 ML IV SCH (20:18)
[2019-03-30 08:14] LABS: HEMATOCRIT 25.4 % (35.4-49); HEMOGLOBIN 8.1 GM/dL (11.7-16.9); MCH 25.7 pg (25.7-33.7); MCHC 31.9 g/dl (32.0-35.9); MEAN CELL VOLUME 80.6 fl (80-96); MEAN PLT VOLUME 7.5 fl (7.5-11.1); PLATELET COUNT 321 K/MM3 (134-434); RBC 3.15 M/mm3 (4.00-5.60); RDW 29.2 % (11.9-15.9)
[2019-03-30 08:40] LABS: BLOOD UREA NITROGEN 10.4 mg/dL (7-18); CALCIUM 8.4 mg/dL (8.5-10.1); CREATININE 0.7 mg/dL (0.55-1.3); MAGNESIUM 1.9 mg/dL (1.8-2.4); PHOSPHOROUS 2.5 mg/dL (2.5-4.9); POTASSIUM 3.4 mmol/L (3.5-5.1)
[2019-03-30] MEDS: AZITHROMYCIN IVPB 500 MG/250 ML BAG IVPB SCH (09:10)
[2019-03-30] MEDS ORDERED: cefTRIAXone SODIUM 1 GM VIAL ONE (10:50)
[2019-03-30] MEDS ORDERED: DEXTROSE 5%-WATER - 50 ML IVPB ONE (10:50)
[2019-03-30] MEDS: metoPROLOL SUCCINATE 25 MG TAB.SR.24H (FP) PO SCH (10:53)
[2019-03-30] MEDS: CEFTRIAXONE 1 GM in DEXTROSE 5%-WATER - 50 ML IVPB SCH (10:53)
--- NOTE | 2019-03-30 14:42 | PN ---
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 Pt has improved. C/o of no fevers or overnight events. No changes in mentation reported or noticed. Denies f/c/n/v /d/sob/chest pain. OBJECTIVE: Vital Signs Period Temp Pulse Resp BP Sys/Greer Pulse Ox Last 24 Hr 98.4 F-99.9 F 60-66 18-18 116-152/48-70 96-96 GENERAL: The patient is awake, alert, and fully oriented, in no acute distress. Appears much more improved EYES: PERRL, extraocular movements intact, sclera anicteric, conjunctiva clear. No ptosis. ENT: oropharynx clear without exudates, dry mucous membranes. NECK: full range of motion, supple. LUNGS: Breath sounds equal, clear to auscultation bilaterally, no wheezes, no crackles, HEART: Regular rate and rhythm, S1, S2 without murmur, rub or gallop. ABDOMEN: Soft, nontender, nondistended, normoactive bowel sounds, no guarding EXTREMITIES: 2+ pulses, warm, well-perfused, no edema. Rectal: NANO: Black stool on gloves. No visible blood. No hemorrhoids- external or internal noted. No fissures or skin tags. NEUROLOGICAL: Cranial nerves II through XII grossly intact. Facial effacement on the right side- chronic. Right sided UE weakness and deformity noted PSYCH: Normal mood, normal affect. SKIN: Warm, dry, normal turgor, Laboratory Results - last 24 hr 03/30/19 03/30/19 03/30/19 07:25 07:25 07:25 WBC 6.0 RBC 3.15 L Hgb 8.1 L Hct 25.4 L MCV 80.6 MCH 25.7 MCHC 31.9 L RDW 29.2 H Plt Count 321 MPV 7.5 PTT (Actin FS) 46.3 H Sodium 141 Potassium 3.4 L Chloride 108 H Carbon Dioxide 26 Anion Gap 7 L BUN 10.4 Creatinine 0.7 Est GFR (CKD-EPI)AfAm 100.44 Est GFR (CKD-EPI)NonAf 86.66 Random Glucose 111 H Calcium 8.4 L Phosphorus 2.5 Magnesium 1.9 Active Medications Current Medications Heparin Sodium (Porcine) (Heparin -) 1,000 unit IVPUSH PRN PRN PRN Reason: Heparin Last Admin: 03/30/19 08:44 Dose: 1,000 unit Heparin Sodium (Porcine) (Heparin -) 5,000 unit IVPUSH PRN PRN PRN Reason: Heparin Last Admin: 03/28/19 19:15 Dose: 5,000 unit Heparin Sodium (Porcine) 25, (000 unit/ Sodium Chloride) 500 mls @ 16 mls/hr IV TITR RAUL; Protocol Last Titration: 03/30/19 08:44 Dose: 900 unit/hr, 18 mls/hr Azithromycin (Zithromax 500mg Ivpb (Pre-Docked)) 500 mg in 250 mls @ 250 mls/ hr IVPB DAILY [facility] Last Admin: 03/30/19 09:10 Dose: 250 mls/hr Ceftriaxone Sodium 1 gm/ (Dextrose) 50 mls @ 100 mls/hr IVPB DAILY [facility] [place] Last Admin: 03/30/19 10:53 Dose: 100 mls/hr Metoprolol Succinate (Toprol Xl -) 25 mg PO DAILY [facility] Last Admin: 03/30/19 10:53 Dose: 25 mg Non-Formulary Medication (Iron/C/Folate 6/B12/Zn/Stomach [Chromagen Softgel]) 1 each PO DAILY [facility] Polyethylene Glycol (Miralax (For Bowel Prep) -) 255 gm PO ONCE ONE Stop: 04/01/19 08:01 Rosuvastatin Calcium (Crestor -) 20 mg PO [facility] Last Admin: 03/29/19 21:37 Dose: 20 mg Sodium Phosphate (Fleet Adult Rectal Enema -) 133 ml [place] ONCE ONE Stop: 04/02/19 04:01 Home Medications Medication Instructions Recorded Apixaban [Eliquis] 2.5 mg PO BID 05/25/18 Rosuvastatin [Crestor -] 20 mg PO HS 05/25/18 Iron/C/Folate 6/B12/Zn/Stomach 1 each PO DAILY #30 capsule 03/13/19 [Chromagen Softgel] Clopidogrel Bisulfate [Plavix] 75 mg PO DAILY 03/27/19 Ferrous Sulfate 325 mg PO DAILY 03/27/19 Metoprolol Succinate 25 mg PO DAILY 03/27/19 Microbiology 03/27/19 13:45 Blood - Peripheral Venous Blood Culture - Preliminary NO GROWTH OBTAINED AFTER 72 HOURS, INCUBATION TO CONTINUE FOR 2 DAYS. 03/27/19 13:55 Blood - Peripheral Venous Blood Culture - Preliminary NO GROWTH OBTAINED AFTER 48 HOURS, INCUBATION TO CONTINUE FOR 3 DAYS. 03/27/19 11:10 Urine - Urine Clean Catch Urine Culture - Final NO GROWTH OBTAINED ASSESSMENT/PLAN: 83 y/o M, pmh of M.I(age 37), CABG (1990), CAD (8 stents), stroke (2008 and 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 #Generalized weakness likely 2/2 to abdominal malignancy seen on CT vs infectious CTAP 08/18- cannot rule out lesion in distal descending colon. Possibility of malignancy which could cause weakness. Hb is stable today 8.1 CT chest 03/28- Likely posterior infiltrate RLL. Multiple upper and lower lobe pulmonary nodules seen b/l w/ max diameter of 1.5 Cont Cef+Azithro SOBT positive EGD and Colonoscopy for tuesday Bowel prep for tuesday night Fleet adult rectal enema given Clear liquids on Tuesday #A-Fib AC started with Heparin drip- will hold 4-6 hours prior to procedures on tuesday Will hold Eliquis #Stroke hx heparin drip #CAD Resume home dose Metoprolol Plavix supposedly d/tere at previous admission as per daughter #FEN Monitor Electrolytes sod/diabetic diet #DVT ppx: SCDs Dispo: cont diet, prep for endoscopy/colonoscopy on tuesday Daughter Leticia Visit type - Emergency Visit Emergency Visit: Yes ED Registration Date: 03/27/19 Care time: The patient presented to the Emergency Department on the above date and was hospitalized for further evaluation of their emergent condition. - New Patient This patient is new to me today: Yes Date on this admission: 03/30/19 - Critical Care Critical Care patient: No - Discharge Referral Referred to [facility] Med P.C.: No ATTENDING PHYSICIAN STATEMENT I saw and evaluated the patient. I reviewed the resident's note and discussed the case with the resident. I agree with the resident's findings and plan as documented. SUBJECTIVE: OBJECTIVE: ASSESSMENT AND PLAN:
[2019-03-30 15:19] VITALS: BMI 17.5
[2019-03-30] MEDS: PATIENT'S OWN MEDICATION (NON-FORMULARY) (Iron/C/Folate 6/B12/Zn/Stomach [Chromagen Softge PO SCH (17:00)
[2019-03-30] MEDS: HEPARIN - 25,000 UNIT in SODIUM CHLORIDE 495 ML IV SCH (17:42)
--- NOTE | 2019-03-30 18:53 | PN ---
Teaching Attending Note Name of Resident: Billy Jarquin ATTENDING PHYSICIAN STATEMENT I saw and evaluated the patient. I reviewed the resident's note and discussed the case with the resident. I agree with the resident's findings and plan as documented. SUBJECTIVE: No fever or chills. No CARLOS . no pain or SOB OBJECTIVE: NAD, awake, alert, aphasic, answered yes/no CV: RRR. 2/6 SM at LLSB . ABd: soft, NT, ND , NL BS. bruit heard in Epigastric area and to a lesser extent 2 cm left to the umbilicus . Ext: No edema or erythema ASSESSMENT AND PLAN: 83 y/o man with h/o A fib , on AC, CVA x 2, iron def anemia, CAD s/p stents, CABG, GI bleed, recently diagnosed possible L colon mass, R sided weakness and aphasia, and other medical problems who presented due an episode of rectal bleed and weakness x 1 week 1- Rectal bleed. could be due to colon mass - EGD and colo on Tuesday - will stop heparin gtt before procedure 2- CAP : - ceftriaxone and azithro day 2 3- H/o A fib: - cont heparin gtt pending EGD/colo - cont toprol 4- H/o CVA: neuro exam as above. - cont statin - AC 5- Malnutrition and cachexia. Dispo: HLOC.
[2019-03-30] MEDS: ROSUVASTATIN CA 20 MG TABLET (FP) PO SCH (21:44)
[2019-03-31 09:59] LABS: HEMATOCRIT 25.1 % (35.4-49); HEMOGLOBIN 7.9 GM/dL (11.7-16.9); MCH 25.5 pg (25.7-33.7); MCHC 31.6 g/dl (32.0-35.9); MEAN CELL VOLUME 80.7 fl (80-96); MEAN PLT VOLUME 7.5 fl (7.5-11.1); PLATELET COUNT 323 K/MM3 (134-434); RBC 3.11 M/mm3 (4.00-5.60); RDW 28.7 % (11.9-15.9); WHITE BLOOD COUNT 4.7 K/mm3 (4.0-10.0)
[2019-03-31] MEDS ORDERED: cefTRIAXone SODIUM 1 GM VIAL ONE (10:18)
[2019-03-31] MEDS ORDERED: DEXTROSE 5%-WATER - 50 ML IVPB ONE (10:18)
[2019-03-31] MEDS: CEFTRIAXONE 1 GM in DEXTROSE 5%-WATER - 50 ML IVPB SCH (10:22)
[2019-03-31] MEDS: metoPROLOL SUCCINATE 25 MG TAB.SR.24H (FP) PO SCH (10:22)
[2019-03-31] MEDS: AZITHROMYCIN IVPB 500 MG/250 ML BAG IVPB SCH (10:22)
[2019-03-31 10:23] LABS: CALCIUM 8.4 mg/dL (8.5-10.1); CREATININE 0.6 mg/dL (0.55-1.3); POTASSIUM 3.1 mmol/L (3.5-5.1)
[2019-03-31] MEDS: KCL 10 MEQ IVPB 10 MEQ/100 ML INFUS.BAG IVPB SCH ×3 (11:41→17:01)
--- NOTE | 2019-03-31 11:56 | PN ---
Physical Exam: SUBJECTIVE: 83 y/o M, pmh of [place](age 37), CABG (1990), CAD (8 stents), stroke ( 2008 and 2012) with right sided residual weakness presented to the hospital with weakness and fever, admitted for generalized weakness. Patient seen and examined. Pt is doing much better than admission. C/o of no weakness, symptoms or issues. No acute overnight events. Denies f/c/n/v/d/chest pain/sob/weakness/ falls. OBJECTIVE: Vital Signs Period Temp Pulse Resp BP Sys/Greer Pulse Ox Last 24 Hr 97.8 F-98.9 F 51-64 18-20 131-135/52-64 95 GENERAL: AOX3, NAD EYES: PERRL, EOMI ENT: oropharynx clear without exudates, dry mucous membranes. NECK: ROM intact, no LAD, supple. LUNGS: CTAB, no wheezes, no crackles, HEART: Rate mildly bradycardic, irregular rhythm, no M/G/R ABDOMEN: Soft, nontender, nondistended, normoactive bowel sounds, no guarding EXTREMITIES: 2+ pulses, warm, well-perfused, no edema. Rectal: (03/28/19) NANO: Black stool on gloves. No visible blood. No hemorrhoids - external or internal noted. No fissures or skin tags. NEUROLOGICAL: Cranial nerves II through XII grossly intact. Facial effacement on the right side- chronic. Right sided UE weakness and deformity noted PSYCH: Normal mood, normal affect. SKIN: Warm Laboratory Results - last 24 hr CBC,CMP WBC 4.7 K/mm3 (4.0-10.0) 03/31/19 08:22 RBC 3.11 M/mm3 (4.00-5.60) L 03/31/19 08:22 Hgb 7.9 GM/dL (11.7-16.9) L 03/31/19 08:22 Hct 25.1 % (35.4-49) L 03/31/19 08:22 MCV 80.7 fl (80-96) 03/31/19 08:22 MCH 25.5 pg (25.7-33.7) L 03/31/19 08:22 MCHC 31.6 g/dl (32.0-35.9) L 03/31/19 08:22 RDW 28.7 % (11.9-15.9) H 03/31/19 08:22 Plt Count 323 K/MM3 (134-434) 03/31/19 08:22 MPV 7.5 fl (7.5-11.1) 03/31/19 08:22 Absolute Neuts (auto) 4.3 K/mm3 (1.5-8.0) 03/28/19 05:43 Neutrophils % 72.0 % (42.8-82.8) 03/28/19 05:43 Lymphocytes % 19.1 % (8-40) D 03/28/19 05:43 Monocytes % 5.7 % (3.8-10.2) 03/28/19 05:43 Eosinophils % 1.3 % (0-4.5) D 03/28/19 05:43 Basophils % 1.9 % (0-2.0) 03/28/19 05:43 Nucleated RBC % 0 % (0-0) 03/28/19 05:43 Hypochromia 1+ 03/28/19 05:43 Platelet Estimate Normal 03/28/19 05:43 Polychromasia 1+ 03/28/19 05:43 Poikilocytosis 1+ 03/28/19 05:43 Anisocytosis 1+ 03/28/19 05:43 Microcytosis 1+ 03/28/19 05:43 Macrocytosis 0 03/28/19 05:43 Schuyler Cells 1+ 03/28/19 05:43 Sodium 141 mmol/L (136-145) 03/31/19 08:22 Potassium 3.1 mmol/L (3.5-5.1) L 03/31/19 08:22 Chloride 108 mmol/L (98-107) H 03/31/19 08:22 Carbon Dioxide 27 mmol/L (21-32) 03/31/19 08:22 Anion Gap 6 MMOL/L (8-16) L 03/31/19 08:22 BUN 10.0 mg/dL (7-18) 03/31/19 08:22 Creatinine 0.6 mg/dL (0.55-1.3) 03/31/19 08:22 Est GFR (CKD-EPI)AfAm 107.01 03/31/19 08:22 Est GFR (CKD-EPI)NonAf 92.33 03/31/19 08:22 Random Glucose 83 mg/dL (74-106) 03/31/19 08:22 Calcium 8.4 mg/dL (8.5-10.1) L 03/31/19 08:22 Phosphorus 2.5 mg/dL (2.5-4.9) 03/30/19 07:25 Magnesium 1.9 mg/dL (1.8-2.4) 03/30/19 07:25 Iron 16 ug/dL (50-175) L 03/28/19 05:43 TIBC 282 ug/dL (250-450) 03/28/19 05:43 Iron Saturation 5 % (17.5-39) L 03/28/19 05:43 Unsaturated IBC 266 ug/dL (200-275) 03/28/19 05:43 Ferritin 137.7 ng/ml (8-388) 03/28/19 05:43 Total Bilirubin 0.8 mg/dL (0.2-1) 03/28/19 05:43 AST 15 U/L (15-37) 03/28/19 05:43 ALT 9 U/L (13-61) L 03/28/19 05:43 Alkaline Phosphatase 89 U/L (45-117) 03/28/19 05:43 Troponin I 0.02 ng/ml (0.00-0.05) 03/27/19 10:55 Total Protein 6.2 g/dl (6.4-8.2) L 03/28/19 05:43 Albumin 2.8 g/dl (3.4-5.0) L 03/28/19 05:43 Active Medications Current Medications Heparin Sodium (Porcine) (Heparin -) 1,000 unit IVPUSH PRN PRN PRN Reason: Heparin Last Admin: 03/30/19 08:44 Dose: 1,000 unit Heparin Sodium (Porcine) (Heparin -) 5,000 unit IVPUSH PRN PRN PRN Reason: Heparin Last Admin: 03/28/19 19:15 Dose: 5,000 unit Heparin Sodium (Porcine) 25, (000 unit/ Sodium Chloride) 500 mls @ 16 mls/hr IV TITR RAUL; Protocol Last Admin: 03/30/19 17:42 Dose: 900 unit/hr, 18 mls/hr Azithromycin (Zithromax 500mg Ivpb (Pre-Docked)) 500 mg in 250 mls @ 250 mls/ hr IVPB DAILY [facility] Last Admin: 03/31/19 10:22 Dose: 250 mls/hr Ceftriaxone Sodium 1 gm/ (Dextrose) 50 mls @ 100 mls/hr IVPB DAILY [facility] Last Admin: 03/31/19 10:22 Dose: 100 mls/hr Potassium Chloride (Potassium Chloride 10 Meq Premix Ivpb -) 10 meq in 100 mls @ 100 mls/hr IVPB Q60M [facility] Stop: 03/31/19 13:29 Last Admin: 03/31/19 11:41 Dose: 100 mls/hr Metoprolol Succinate (Toprol Xl -) 25 mg PO DAILY [facility] Last Admin: 03/31/19 10:22 Dose: 25 mg Polyethylene Glycol (Miralax (For Bowel Prep) -) 255 gm PO ONCE ONE Stop: 04/01/19 08:01 Rosuvastatin Calcium (Crestor -) 20 mg PO [facility] Last Admin: 03/30/19 21:44 Dose: 20 mg Sodium Phosphate (Fleet Adult Rectal Enema -) 133 ml [place] ONCE ONE Stop: 04/02/19 04:01 Home Medications Medication Instructions Recorded Apixaban [Eliquis] 2.5 mg PO BID 05/25/18 Rosuvastatin [Crestor -] 20 mg PO HS 05/25/18 Clopidogrel Bisulfate [Plavix] 75 mg PO DAILY 03/27/19 Ferrous Sulfate 325 mg PO DAILY 03/27/19 Metoprolol Succinate 25 mg PO DAILY 03/27/19 Microbiology 03/27/19 13:55 Blood - Peripheral Venous Blood Culture - Preliminary NO GROWTH OBTAINED AFTER 72 HOURS, INCUBATION TO CONTINUE FOR 2 DAYS. 03/27/19 13:45 Blood - Peripheral Venous Blood Culture - Preliminary NO GROWTH OBTAINED AFTER 72 HOURS, INCUBATION TO CONTINUE FOR 2 DAYS. 03/27/19 11:10 Urine - Urine Clean Catch Urine Culture - Final NO GROWTH OBTAINED ASSESSMENT/PLAN: 83 y/o M, pmh of M.I(age 37), CABG (1990), CAD (8 stents), stroke (2008 and 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 #Generalized weakness likely 2/2 to abdominal malignancy seen on CT vs Anemia CTAP 08/18- cannot rule out lesion in distal descending colon. Possibility of malignancy which could cause weakness. Cont Cef+Azithro D3 Hb today 7.9 Endoscopy and colonoscopy for Saturday 03/03 Bowel prep for tuesday night Clear liquids on Tuesday #A-Fib AC started with Heparin drip- will hold 4-6 hours prior to procedures on tuesday Will hold Eliquis #Stroke hx heparin drip #CAD Resume home dose Metoprolol Plavix supposedly d/tere at previous admission as per daughter #FEN Monitor Electrolytes sod/diabetic diet #DVT ppx: SCDs Dispo: cont diet, prep for endoscopy/colonoscopy on tuesday Daughter Leticia Visit type - Emergency Visit Emergency Visit: Yes ED Registration Date: 03/27/19 Care time: The patient presented to the Emergency Department on the above date and was hospitalized for further evaluation of their emergent condition. - New Patient This patient is new to me today: Yes Date on this admission: 04/01/19 - Critical Care Critical Care patient: No - Discharge Referral Referred to [facility] Med P.C.: No ATTENDING PHYSICIAN STATEMENT I saw and evaluated the patient. I reviewed the resident's note and discussed the case with the resident. I agree with the resident's findings and plan as documented. SUBJECTIVE: OBJECTIVE: ASSESSMENT AND PLAN:
[2019-03-31] MEDS ORDERED: POTASSIUM CHLORIDE ORAL LIQUID 20 MEQ/15 ML PO ONE (14:19)
--- NOTE | 2019-03-31 14:22 | PN ---
Teaching Attending Note Name of Resident: Billy Jarquin ATTENDING PHYSICIAN STATEMENT I saw and evaluated the patient. I reviewed the resident's note and discussed the case with the resident. I agree with the resident's findings and plan as documented. SUBJECTIVE: No fever or chills. No pain. feels tired. had a small BM this am , but it was small and brown OBJECTIVE: NAD, awake, alert, aphasic. minimal verbal response CV: RRR. 2/6 SM at LLSB . ABd: soft, NT, ND , NL BS. bruit heard in Epigastric area and to a lesser extent 2 cm left to the umbilicus . Ext: No edema or erythema ASSESSMENT AND PLAN: 83 y/o man with h/o A fib , on AC, CVA x 2, iron def anemia, CAD s/p stents, CABG, GI bleed, recently diagnosed possible L colon mass, R sided weakness and aphasia, and other medical problems who presented due an episode of rectal bleed and weakness x 1 week 1- Rectal bleed. could be due to colon mass - EGD and colo on Tuesday - will stop heparin gtt before procedure 2- CAP : - ceftriaxone and azithro day 3 3- H/o A fib: - cont heparin gtt pending EGD/colo - cont toprol 4- H/o CVA: neuro exam as above. - cont statin - AC 5- Malnutrition and cachexia. 6- hypokalemia: replete Dispo: HLOC.
[2019-03-31] MEDS: HEPARIN - 25,000 UNIT in SODIUM CHLORIDE 495 ML IV SCH ×2 (15:00→21:34)
[2019-03-31] MEDS ORDERED: PT OWN MED DRAWER 7, Y5N ONE (18:48)
[2019-03-31] MEDS: ROSUVASTATIN CA 20 MG TABLET (FP) PO SCH (21:33)
[2019-04-01 07:43] LABS: HEMOGLOBIN 8.7 GM/dL (11.7-16.9); MCH 25.4 pg (25.7-33.7); MCHC 31.1 g/dl (32.0-35.9); MEAN CELL VOLUME 81.5 fl (80-96); MEAN PLT VOLUME 7.1 fl (7.5-11.1); PLATELET COUNT 383 K/MM3 (134-434); RBC 3.43 M/mm3 (4.00-5.60); RDW 28.6 % (11.9-15.9); WHITE BLOOD COUNT 7.7 K/mm3 (4.0-10.0)
[2019-04-01] MEDS ORDERED: POLYETHYLENE GLYCOL 3350 255 GM BTL PO ONE (08:00)
[2019-04-01 08:16] LABS: BLOOD UREA NITROGEN 8.2 mg/dL (7-18); CALCIUM 8.3 mg/dL (8.5-10.1); CREATININE 0.6 mg/dL (0.55-1.3); MAGNESIUM 1.9 mg/dL (1.8-2.4); PHOSPHOROUS 2.5 mg/dL (2.5-4.9); POTASSIUM 3.4 mmol/L (3.5-5.1)
[2019-04-01] MEDS ORDERED: cefTRIAXone SODIUM 1 GM VIAL ONE (11:03)
[2019-04-01] MEDS ORDERED: DEXTROSE 5%-WATER - 50 ML IVPB ONE (11:04)
[2019-04-01] MEDS: CEFTRIAXONE 1 GM in DEXTROSE 5%-WATER - 50 ML IVPB SCH (12:26)
[2019-04-01] MEDS: metoPROLOL SUCCINATE 25 MG TAB.SR.24H (FP) PO SCH (12:27)
[2019-04-01] MEDS: AZITHROMYCIN IVPB 500 MG/250 ML BAG IVPB SCH (12:28)
--- NOTE | 2019-04-01 17:16 | PN ---
Progress Note (short form) - Note Progress Note: Subjective: No pain, no fever or chills. No CARLOS . cough Objective: Vital Signs: Last Vital Signs Temp Pulse Resp BP Pulse Ox 97.6 F 62 20 136/63 99 04/01/19 15:32 04/01/19 15:32 04/01/19 15:32 04/01/19 15:32 04/01/19 09:00 Laboratory Results - last 24 hr 03/31/19 04/01/19 04/01/19 18:30 07:25 07:25 WBC 7.7 RBC 3.43 L Hgb 8.7 L Hct 28.0 L MCV 81.5 MCH 25.4 L MCHC 31.1 L RDW 28.6 H Plt Count 383 MPV 7.1 L PTT (Actin FS) 56.4 H Sodium Potassium Chloride Carbon Dioxide Anion Gap BUN Creatinine Est GFR (CKD-EPI)AfAm Est GFR (CKD-EPI)NonAf Random Glucose Calcium Phosphorus Magnesium Stool Occult Blood Positive 04/01/19 04/01/19 07:25 10:05 WBC RBC Hgb Hct MCV MCH MCHC RDW Plt Count MPV PTT (Actin FS) Sodium 140 Potassium 3.4 L Chloride 108 H Carbon Dioxide 26 Anion Gap 6 L BUN 8.2 Creatinine 0.6 Est GFR (CKD-EPI)AfAm 107.01 Est GFR (CKD-EPI)NonAf 92.33 Random Glucose 108 H Calcium 8.3 L Phosphorus 2.5 Magnesium 1.9 Stool Occult Blood Positive Physical Exam: NAD, awake, alert, aphasic. minimal verbal response CV: RRR. 2/6 SM at LLSB . ABd: soft, NT, ND , NL BS. bruit heard in Epigastric area and to a lesser extent 2 cm left to the umbilicus . Ext: No edema or erythema ASSESSMENT AND PLAN: 83 y/o man with h/o A fib , on AC, CVA x 2, iron def anemia, CAD s/p stents, CABG, GI bleed, recently diagnosed possible L colon mass, R sided weakness and aphasia, and other medical problems who presented due an episode of rectal bleed and weakness x 1 week 1- Rectal bleed. could be due to colon mass - EGD and colo on Tuesday - Will stop heparin gtt 2 hours before procedure - NPO after MN 2- CAP : - Ceftriaxone and azithro day 4/5 3- H/o A fib: - cont heparin gtt pending EGD/colo. - cont toprol 4- H/o CVA: neuro exam as above. - cont statin - AC 5- Malnutrition and cachexia. 6- Hypokalemia: replete Dispo: HLOC. d/w daughter Visit type - Emergency Visit Emergency Visit: Yes ED Registration Date: 03/27/19 Care time: The patient presented to the Emergency Department on the above date and was hospitalized for further evaluation of their emergent condition. - New Patient This patient is new to me today: No - Critical Care Critical Care patient: No
[2019-04-01] MEDS: HEPARIN - 25,000 UNIT in SODIUM CHLORIDE 495 ML IV SCH ×2 (19:43→21:22)
[2019-04-01] MEDS: ROSUVASTATIN CA 20 MG TABLET (FP) PO SCH (21:20)
[2019-04-02] MEDS ORDERED: SODIUM PHOSPHATE/NA BIPHOS 133 ML ENEMA PR ONE (04:00)
[2019-04-02 09:19] LABS: HEMOGLOBIN 8.1 GM/dL (11.7-16.9); MCH 25.2 pg (25.7-33.7); MCHC 31.4 g/dl (32.0-35.9); MEAN CELL VOLUME 80.4 fl (80-96); MEAN PLT VOLUME 7.6 fl (7.5-11.1); PLATELET COUNT 350 K/MM3 (134-434); RBC 3.23 M/mm3 (4.00-5.60); RDW 28.8 % (11.9-15.9)
[2019-04-02] MEDS ORDERED: POLYETHYLENE GLYCOL 3350 119 GM BTL PO ONE (09:30)
[2019-04-02] MEDS ORDERED: cefTRIAXone SODIUM 1 GM VIAL ONE (09:31)
[2019-04-02] MEDS ORDERED: DEXTROSE 5%-WATER - 50 ML IVPB ONE (09:32)
[2019-04-02] MEDS: CEFTRIAXONE 1 GM in DEXTROSE 5%-WATER - 50 ML IVPB SCH (09:39)
[2019-04-02 10:00] LABS: MAGNESIUM 1.9 mg/dL (1.8-2.4); PHOSPHOROUS 3.2 mg/dL (2.5-4.9); POTASSIUM 3.2 mmol/L (3.5-5.1)
[2019-04-02] MEDS: AZITHROMYCIN IVPB 500 MG/250 ML BAG IVPB SCH (10:09)
[2019-04-02] MEDS: metoPROLOL SUCCINATE 25 MG TAB.SR.24H (FP) PO SCH (11:54)
[2019-04-02] MEDS ORDERED: HEPARIN NA (PORCINE) 5,000 UNITS/ML 1ML VIAL IVPUSH PRN ×2 (12:16)
[2019-04-02] MEDS ORDERED: HEPARIN - 25,000 UNIT in SODIUM CHLORIDE 495 ML IV SCH ×3 (12:30→14:16)
[2019-04-02] MEDS ORDERED: PEG 3350/NA SULF BICARB CL/KCL 4000 ML SOLN.RECON PO ONE (13:17)
[2019-04-02] MEDS ORDERED: BISACODYL 5 MG TABLET.DR (FP) PO ONE (13:17)
--- NOTE | 2019-04-02 14:22 | PN ---
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 Patient seen and examined. Currently, pt is doing well. C/o of some tiredness but otherwise no issues overnight or event overnight. Had bm and urinated. Denies f/c/n/v/d/chest pain/ sob/weakness/falls. OBJECTIVE: Vital Signs Period Temp Pulse Resp BP Sys/Greer Pulse Ox Last 24 Hr 97.6 F-98.4 F 62-73 20-20 135-150/63-80 98-99 GENERAL: AOX3, NAD EYES: PERRL, EOMI ENT: oropharynx clear without exudates, dry mucous membranes. NECK: ROM intact, no LAD, supple. LUNGS: CTAB, no wheezes, no crackles, HEART: Rate mildly bradycardic, irregular rhythm, no M/G/R ABDOMEN: Soft, nontender, nondistended, normoactive bowel sounds, no guarding EXTREMITIES: 2+ pulses, warm, well-perfused, no edema. Rectal: (03/28/19) NANO: Black stool on gloves. No visible blood. No hemorrhoids - external or internal noted. No fissures or skin tags. NEUROLOGICAL: Cranial nerves II through XII grossly intact. Facial effacement on the right side- chronic. Right sided UE weakness and deformity noted PSYCH: Normal mood, normal affect. SKIN: Warm Laboratory Results - last 24 hr CBC,CMP WBC 8.0 K/mm3 (4.0-10.0) 04/02/19 08:20 RBC 3.23 M/mm3 (4.00-5.60) L 04/02/19 08:20 Hgb 8.1 GM/dL (11.7-16.9) L 04/02/19 08:20 Hct 26.0 % (35.4-49) L 04/02/19 08:20 MCV 80.4 fl (80-96) 04/02/19 08:20 MCH 25.2 pg (25.7-33.7) L 04/02/19 08:20 MCHC 31.4 g/dl (32.0-35.9) L 04/02/19 08:20 RDW 28.8 % (11.9-15.9) H 04/02/19 08:20 Plt Count 350 K/MM3 (134-434) 04/02/19 08:20 MPV 7.6 fl (7.5-11.1) 04/02/19 08:20 Absolute Neuts (auto) 4.3 K/mm3 (1.5-8.0) 03/28/19 05:43 Neutrophils % 72.0 % (42.8-82.8) 03/28/19 05:43 Lymphocytes % 19.1 % (8-40) D 03/28/19 05:43 Monocytes % 5.7 % (3.8-10.2) 03/28/19 05:43 Eosinophils % 1.3 % (0-4.5) D 03/28/19 05:43 Basophils % 1.9 % (0-2.0) 03/28/19 05:43 Nucleated RBC % 0 % (0-0) 03/28/19 05:43 Hypochromia 1+ 03/28/19 05:43 Platelet Estimate Normal 03/28/19 05:43 Polychromasia 1+ 03/28/19 05:43 Poikilocytosis 1+ 03/28/19 05:43 Anisocytosis 1+ 03/28/19 05:43 Microcytosis 1+ 03/28/19 05:43 Macrocytosis 0 03/28/19 05:43 Axton Cells 1+ 03/28/19 05:43 Sodium 140 mmol/L (136-145) 04/01/19 07:25 Potassium 3.2 mmol/L (3.5-5.1) L 04/02/19 08:20 Chloride 108 mmol/L (98-107) H 04/01/19 07:25 Carbon Dioxide 26 mmol/L (21-32) 04/01/19 07:25 Anion Gap 6 MMOL/L (8-16) L 04/01/19 07:25 BUN 8.2 mg/dL (7-18) 04/01/19 07:25 Creatinine 0.6 mg/dL (0.55-1.3) 04/01/19 07:25 Est GFR (CKD-EPI)AfAm 107.01 04/01/19 07:25 Est GFR (CKD-EPI)NonAf 92.33 04/01/19 07:25 Random Glucose 108 mg/dL (74-106) H 04/01/19 07:25 Calcium 8.3 mg/dL (8.5-10.1) L 04/01/19 07:25 Phosphorus 3.2 mg/dL (2.5-4.9) 04/02/19 08:20 Magnesium 1.9 mg/dL (1.8-2.4) 04/02/19 08:20 Iron 16 ug/dL (50-175) L 03/28/19 05:43 TIBC 282 ug/dL (250-450) 03/28/19 05:43 Iron Saturation 5 % (17.5-39) L 03/28/19 05:43 Unsaturated IBC 266 ug/dL (200-275) 03/28/19 05:43 Ferritin 137.7 ng/ml (8-388) 03/28/19 05:43 Total Bilirubin 0.8 mg/dL (0.2-1) 03/28/19 05:43 AST 15 U/L (15-37) 03/28/19 05:43 ALT 9 U/L (13-61) L 03/28/19 05:43 Alkaline Phosphatase 89 U/L (45-117) 03/28/19 05:43 Troponin I 0.02 ng/ml (0.00-0.05) 03/27/19 10:55 Total Protein 6.2 g/dl (6.4-8.2) L 03/28/19 05:43 Albumin 2.8 g/dl (3.4-5.0) L 03/28/19 05:43 Active Medications Current Medications Heparin Sodium (Porcine) (Heparin -) 1,000 unit IVPUSH PRN PRN PRN Reason: Heparin Heparin Sodium (Porcine) (Heparin -) 5,000 unit IVPUSH PRN PRN PRN Reason: Heparin Heparin Sodium (Porcine) 25, (000 unit/ Sodium Chloride) 500 mls @ 18 mls/hr IV TITR RAUL; Protocol Metoprolol Succinate (Toprol Xl -) 25 mg PO DAILY RAUL Last Admin: 04/02/19 11:54 Dose: 25 mg Rosuvastatin Calcium (Crestor -) 20 mg PO HS RAUL Last Admin: 04/01/19 21:20 Dose: 20 mg Home Medications Medication Instructions Recorded Apixaban [Eliquis] 2.5 mg PO BID 05/25/18 Rosuvastatin [Crestor -] 20 mg PO HS 05/25/18 Clopidogrel Bisulfate [Plavix] 75 mg PO DAILY 03/27/19 Ferrous Sulfate 325 mg PO DAILY 03/27/19 Metoprolol Succinate 25 mg PO DAILY 03/27/19 Microbiology 03/27/19 13:55 Blood - Peripheral Venous Blood Culture - Final NO GROWTH AFTER 5 DAYS INCUBATION 03/27/19 13:45 Blood - Peripheral Venous Blood Culture - Final NO GROWTH AFTER 5 DAYS INCUBATION 03/27/19 11:10 Urine - Urine Clean Catch Urine Culture - Final NO GROWTH OBTAINED ASSESSMENT/PLAN: 83 y/o M, pmh of [place](age 37), CABG (1990), CAD (8 stents), stroke (2008 and 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 #Generalized weakness likely 2/2 to abdominal malignancy seen on CT vs Anemia CTAP 08/18- cannot rule out lesion in distal descending colon. Possibility of malignancy which could cause weakness. Abx d/tere Hb today 8.1, dropped from yesterday Endoscopy and colonoscopy for Tuesday 04/03- pt was not prepped properly- Discussed with Dr Mason Bowel prep for tonight night Clear liquids NPO after Midnight #A-Fib AC started with Heparin drip- will hold 4-6 hours prior to procedures tomorrow, likely in am Will hold Eliquis #Stroke hx cont heparin drip till tomorrow #CAD cont Metoprolol #FEN Monitor Electrolytes clear liquids diet #DVT ppx: heparin Dispo: cont diet, prep for endoscopy/colonoscopy on tomorrow am Visit type - Emergency Visit Emergency Visit: Yes ED Registration Date: 03/27/19 Care time: The patient presented to the Emergency Department on the above date and was hospitalized for further evaluation of their emergent condition. - New Patient This patient is new to me today: Yes Date on this admission: 04/02/19 - Critical Care Critical Care patient: No - Discharge Referral Referred to [facility] Med P.C.: No ATTENDING PHYSICIAN STATEMENT I saw and evaluated the patient. I reviewed the resident's note and discussed the case with the resident. I agree with the resident's findings and plan as documented. SUBJECTIVE: OBJECTIVE: ASSESSMENT AND PLAN:
--- NOTE | 2019-04-02 14:33 | ECHO ---
Name: MARGOT FAY Exam:Adult Echocardiogram Study Date: 04/02/2019 07:55 AM Age: 83 yrs Reason For Study: R/O Vegetation Height: 69 in Weight: 119 lb BSA: 1.7 m2 MMode/2D Measurements & Calculations IVSd: 1.0 cm Ao root diam: 3.3 cm LVIDd: 4.9 cm LA dimension: 4.0 cm LVIDs: 2.6 cm LVPWd: 1.0 cm EDV(Teich): 110.6 ml LVOT diam: 2.0 cm ESV(Teich): 25.4 ml LAV (MOD-bp): 75.0 ml Doppler Measurements & Calculations MV E max lalo: 65.5 cm/sec Ao V2 max: 103.2 cm/sec MV A max lalo: 72.3 cm/sec Ao max P.3 mmHg MV E/A: 0.91 AI P1/2t: 1261 msec MV dec time: 0.27 sec DAHLIA(V,D): 2.4 cm2 AI max lalo: 227.4 cm/sec LV V1 max P.6 mmHg AI max P.9 mmHg LV V1 max: 80.0 cm/sec AI dec slope: 52.8 cm/sec2 MR max lalo: 511.5 cm/sec TR max lalo: 189.4 cm/sec MR max P.7 mmHg TR max P.3 mmHg PA V2 max: 89.6 cm/sec Med Peak E' Lalo: 3.7 cm/sec PA max P.2 mmHg Med E/e': 17.7 Lat Peak E' Lalo: 9.1 cm/sec Lat E/e': 7.2 Procedure A complete two-dimensional transthoracic echocardiogram was performed (2D, M-mode, Doppler and color flow Doppler). Left Ventricle The left ventricle is normal in size. Left ventricular systolic function is normal. Ejection Fraction = 55- 60%. LV diastology reveals elevated filling pressure with impaired relaxation (E/E' 18). No regional wall motion abnormalities noted. Right Ventricle The right ventricle is normal size. The right ventricular systolic function is normal. Atria Probable mildly dilated left atrium. Right atrial size is normal. Mitral Valve There is mild mitral valve thickening. There is moderate mitral regurgitation. Tricuspid Valve The tricuspid valve is normal in structure and function. There is mild tricuspid regurgitation. Aortic Valve There is moderate aortic sclerosis.;. Mild aortic regurgitation. Pulmonic Valve The pulmonic valve is not well visualized. Great Vessels The aortic root is normal size. Pericardium/Pleura There is no pericardial effusion. Interpretation Summary The left ventricle is normal in size. Left ventricular systolic function is normal. No regional wall motion abnormalities noted. Ejection Fraction = 55-60%. LV diastology reveals elevated filling pressure with impaired relaxation (E/E' 18) The right ventricular systolic function is normal. Probable mildly dilated left atrium Right atrial size is normal. There is mild mitral valve thickening. There is moderate mitral regurgitation. There is mild tricuspid regurgitation. There is moderate aortic sclerosis. Mild aortic regurgitation. There is no pericardial effusion. When compared to study dated 05/26/18, LVEF appears improved David Sarabia MD 04/02/2019 02:32 PM
[2019-04-02] MEDS: KCL 10 MEQ IVPB 10 MEQ/100 ML INFUS.BAG IVPB SCH ×2 (16:13→17:10)
--- NOTE | 2019-04-02 17:43 | PN ---
Teaching Attending Note Name of Resident: Billy Jarquin ATTENDING PHYSICIAN STATEMENT I saw and evaluated the patient. I reviewed the resident's note and discussed the case with the resident. I agree with the resident's findings and plan as documented. SUBJECTIVE: no pain ,no fever ro chills. No SOB. cont to have soft stools after the prep OBJECTIVE: NAD, awake, alert, aphasic. minimal verbal response CV: RRR. 2/6 SM at LLSB . ABd: soft, NT, ND , NL BS. bruit heard in Epigastric area Ext: No edema or erythema ASSESSMENT AND PLAN: 83 y/o man with h/o A fib , on AC, CVA x 2, iron def anemia, CAD s/p stents, CABG, GI bleed, recently diagnosed possible L colon mass, R sided weakness and aphasia, and other medical problems who presented due an episode of rectal bleed and weakness x 1 week 1- Rectal bleed. could be due to colon mass - EGD and colo were delayed till tomorrow due to incomplete prep - resumke heparin gtt and will dc tomorrow 2-4 hours before procedure. ( Gi comfort ) - NPO after MN 2- CAP : - Ceftriaxone and azithro day 5/5 . Dc Abx 3- H/o A fib: - cont heparin gtt pending EGD/colo. - cont toprol 4- H/o CVA: - cont statin - AC 5- Malnutrition and cachexia. 6- Hypokalemia: replete today Dispo: HLOC. PT pending
[2019-04-02] MEDS: ROSUVASTATIN CA 20 MG TABLET (FP) PO SCH (22:11)
[2019-04-03 09:05] LABS: HEMATOCRIT 24.8 % (35.4-49); HEMOGLOBIN 7.9 GM/dL (11.7-16.9); MCH 25.7 pg (25.7-33.7); MCHC 31.9 g/dl (32.0-35.9); MEAN CELL VOLUME 80.5 fl (80-96); MEAN PLT VOLUME 7.3 fl (7.5-11.1); PLATELET COUNT 333 K/MM3 (134-434); RBC 3.08 M/mm3 (4.00-5.60); RDW 28.5 % (11.9-15.9); WHITE BLOOD COUNT 4.6 K/mm3 (4.0-10.0)
[2019-04-03] MEDS: metoPROLOL SUCCINATE 25 MG TAB.SR.24H (FP) PO SCH (09:49)
[2019-04-03 10:01] LABS: CALCIUM 8.9 mg/dL (8.5-10.1); CREATININE 0.6 mg/dL (0.55-1.3); POTASSIUM 3.8 mmol/L (3.5-5.1)
--- NOTE | 2019-04-03 13:46 | PN ---
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 Patient seen and examined. C/o of no issues overnight or event overnight. Had bm and urinated. Feeling well. Denies f/c/n/v/d/chest pain/sob/weakness/falls. OBJECTIVE: Vital Signs Period Temp Pulse Resp BP Sys/Greer Pulse Ox Last 24 Hr 98.0 F-98.7 F 57-61 18-20 115-153/45-78 98-99 GENERAL: AOX3, NAD EYES: PERRL, EOMI ENT: oropharynx clear without exudates, dry mucous membranes. NECK: ROM intact, no LAD, supple. LUNGS: CTAB, no wheezes, no crackles, HEART: Rate mildly bradycardic, irregular rhythm, no M/G/R ABDOMEN: Soft, nontender, nondistended, normoactive bowel sounds, no guarding EXTREMITIES: 2+ pulses, warm, well-perfused, no edema. Rectal: (03/28/19) NANO: Black stool on gloves. No visible blood. No hemorrhoids - external or internal noted. No fissures or skin tags. NEUROLOGICAL: Cranial nerves II through XII grossly intact. Facial effacement on the right side- chronic. Right sided UE weakness and deformity noted PSYCH: Normal mood, normal affect. SKIN: Warm Laboratory Results - last 24 hr CBC,CMP WBC 4.6 K/mm3 (4.0-10.0) 04/03/19 08:20 RBC 3.08 M/mm3 (4.00-5.60) L 04/03/19 08:20 Hgb 7.9 GM/dL (11.7-16.9) L 04/03/19 08:20 Hct 24.8 % (35.4-49) L 04/03/19 08:20 MCV 80.5 fl (80-96) 04/03/19 08:20 MCH 25.7 pg (25.7-33.7) 04/03/19 08:20 MCHC 31.9 g/dl (32.0-35.9) L 04/03/19 08:20 RDW 28.5 % (11.9-15.9) H 04/03/19 08:20 Plt Count 333 K/MM3 (134-434) 04/03/19 08:20 MPV 7.3 fl (7.5-11.1) L 04/03/19 08:20 Absolute Neuts (auto) 4.3 K/mm3 (1.5-8.0) 03/28/19 05:43 Neutrophils % 72.0 % (42.8-82.8) 03/28/19 05:43 Lymphocytes % 19.1 % (8-40) D 03/28/19 05:43 Monocytes % 5.7 % (3.8-10.2) 03/28/19 05:43 Eosinophils % 1.3 % (0-4.5) D 03/28/19 05:43 Basophils % 1.9 % (0-2.0) 03/28/19 05:43 Nucleated RBC % 0 % (0-0) 03/28/19 05:43 Hypochromia 1+ 03/28/19 05:43 Platelet Estimate Normal 03/28/19 05:43 Polychromasia 1+ 03/28/19 05:43 Poikilocytosis 1+ 03/28/19 05:43 Anisocytosis 1+ 03/28/19 05:43 Microcytosis 1+ 03/28/19 05:43 Macrocytosis 0 03/28/19 05:43 Bruno Cells 1+ 03/28/19 05:43 Sodium 141 mmol/L (136-145) 04/03/19 08:20 Potassium 3.8 mmol/L (3.5-5.1) 04/03/19 08:20 Chloride 108 mmol/L (98-107) H 04/03/19 08:20 Carbon Dioxide 23 mmol/L (21-32) 04/03/19 08:20 Anion Gap 10 MMOL/L (8-16) 04/03/19 08:20 BUN 5.0 mg/dL (7-18) L 04/03/19 08:20 Creatinine 0.6 mg/dL (0.55-1.3) 04/03/19 08:20 Est GFR (CKD-EPI)AfAm 107.01 04/03/19 08:20 Est GFR (CKD-EPI)NonAf 92.33 04/03/19 08:20 Random Glucose 88 mg/dL (74-106) 04/03/19 08:20 Calcium 8.9 mg/dL (8.5-10.1) 04/03/19 08:20 Phosphorus 3.2 mg/dL (2.5-4.9) 04/02/19 08:20 Magnesium 1.9 mg/dL (1.8-2.4) 04/02/19 08:20 Iron 16 ug/dL (50-175) L 03/28/19 05:43 TIBC 282 ug/dL (250-450) 03/28/19 05:43 Iron Saturation 5 % (17.5-39) L 03/28/19 05:43 Unsaturated IBC 266 ug/dL (200-275) 03/28/19 05:43 Ferritin 137.7 ng/ml (8-388) 03/28/19 05:43 Total Bilirubin 0.8 mg/dL (0.2-1) 03/28/19 05:43 AST 15 U/L (15-37) 03/28/19 05:43 ALT 9 U/L (13-61) L 03/28/19 05:43 Alkaline Phosphatase 89 U/L (45-117) 03/28/19 05:43 Troponin I 0.02 ng/ml (0.00-0.05) 03/27/19 10:55 Total Protein 6.2 g/dl (6.4-8.2) L 03/28/19 05:43 Albumin 2.8 g/dl (3.4-5.0) L 03/28/19 05:43 Active Medications Generic Name Dose Route Start Last Admin Trade Name Freq PRN Reason Stop Dose Admin Heparin Sodium (Porcine) 1,000 unit 04/02/19 12:16 Heparin - IVPUSH PRN PRN Heparin Heparin Sodium (Porcine) 5,000 unit 04/02/19 12:16 Heparin - IVPUSH PRN PRN Heparin Heparin Sodium (Porcine) 25, 500 mls @ 18 mls/hr 04/02/19 14:16 04/02/19 12: 30 000 unit/ Sodium Chloride IV 18 mls/hr TITR RAUL Administration Protocol Metoprolol Succinate 25 mg 03/28/19 10:00 04/03/19 09:49 Toprol Xl - PO 25 mg DAILY RAUL Administration Rosuvastatin Calcium 20 mg 03/27/19 22:00 04/02/19 22:11 Crestor - PO 20 mg HS RAUL Administration Home Medications Medication Instructions Recorded Apixaban [Eliquis] 2.5 mg PO BID 05/25/18 Rosuvastatin [Crestor -] 20 mg PO HS 05/25/18 Clopidogrel Bisulfate [Plavix] 75 mg PO DAILY 03/27/19 Ferrous Sulfate 325 mg PO DAILY 03/27/19 Metoprolol Succinate 25 mg PO DAILY 03/27/19 Microbiology 03/27/19 13:55 Blood - Peripheral Venous Blood Culture - Final NO GROWTH AFTER 5 DAYS INCUBATION 03/27/19 13:45 Blood - Peripheral Venous Blood Culture - Final NO GROWTH AFTER 5 DAYS INCUBATION 03/27/19 11:10 Urine - Urine Clean Catch Urine Culture - Final NO GROWTH OBTAINED ASSESSMENT/PLAN: 83 y/o M, pmh of [place](age 37), CABG (1990), CAD (8 stents), stroke (2008 and 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 #Generalized weakness likely 2/2 to abdominal malignancy seen on CT vs Anemia CTAP 08/18- cannot rule out lesion in distal descending colon. Possibility of malignancy which could cause weakness. Endoscopy and colonoscopy today Will speak to GI after procedure for the results, and recommendations on resuming AC (Eliquis) PT called to help pt ambulate No need for pulmonary consult at this time, CT only if surgery team requires it #A-Fib Heparin Held Will hold Eliquis #Stroke hx Eliquis held #CAD cont Metoprolol #FEN Monitor Electrolytes #DVT ppx: heparin Dispo: endoscopy/colonoscopy today, f/u results, resume regular diet after procedure Visit type - Emergency Visit Emergency Visit: Yes ED Registration Date: 03/27/19 Care time: The patient presented to the Emergency Department on the above date and was hospitalized for further evaluation of their emergent condition. - New Patient This patient is new to me today: Yes Date on this admission: 04/03/19 - Critical Care Critical Care patient: No - Discharge Referral Referred to [facility] Med P.C.: No ATTENDING PHYSICIAN STATEMENT I saw and evaluated the patient. I reviewed the resident's note and discussed the case with the resident. I agree with the resident's findings and plan as documented. SUBJECTIVE: OBJECTIVE: ASSESSMENT AND PLAN:
--- NOTE | 2019-04-03 15:40 | PN ---
Teaching Attending Note Name of Resident: Billy Jarquin ATTENDING PHYSICIAN STATEMENT I saw and evaluated the patient. I reviewed the resident's note and discussed the case with the resident. I agree with the resident's findings and plan as documented. SUBJECTIVE: No fever or chills. No CARLOS . no pain. No abd discomfort . OBJECTIVE: NAD, awake, alert, aphasic. minimal verbal response CV: RRR. 2/6 SM at LLSB . ABd: soft, NT, ND , NL BS. bruit heard in Epigastric area Ext: No edema or erythema Lungs: bibasilar crackles ASSESSMENT AND PLAN: 83 y/o man with h/o A fib , on AC, CVA x 2, iron def anemia, CAD s/p stents, CABG, GI bleed, recently diagnosed possible L colon mass, R sided weakness and aphasia, and other medical problems who presented due an episode of rectal bleed and weakness x 1 week 1- Large colonic mass . had colo today and scope could not be passed - will consult Surgery and Onc. - d/w daughter 2- CAP : finished a course of Abx 3- H/o A fib: - resume heparin gtt , pendingn decision fro Sx - cont toprol 4- H/o CVA: - cont statin - AC 5- Malnutrition and cachexia. 6- Hypokalemia: resolved. monitor and replete as needed Dispo: HLOC. PT venusal
--- NOTE | 2019-04-03 16:18 | CONSULT ---
- Consultation REQUESTING PROVIDER: CONSULT REQUEST: We have been asked to surgically evaluate this patient for colonic mass. PCP:Ricki Sultana HISTORY OF PRESENT ILLNESS: The patient is a 83 yo male who presented to the ER for weakness. He had been admitted to the hospital in early March with a low H&H and was offered a colonoscopy at that time. He and his family refused the procedure. He returned for weakness and had a colonoscopy today with the finding of a friable, circumferential mass 45-50 cm from the anal verge. He denies any abdominal pain today. He takes plavix/elquis for a fib. PMHx: CAD, CVA with right upper ext residual weakness, dysphagia PSHx: CABG/cardiac stents, a fib, appendectomy Home Medications Medication Instructions Recorded Apixaban [Eliquis] 2.5 mg PO BID 05/25/18 Rosuvastatin [Crestor -] 20 mg PO HS 05/25/18 Clopidogrel Bisulfate [Plavix] 75 mg PO DAILY 03/27/19 Ferrous Sulfate 325 mg PO DAILY 03/27/19 Metoprolol Succinate 25 mg PO DAILY 03/27/19 Allergies Allergy/AdvReac Type Severity Reaction Status Date / Time No Known Allergies Allergy Verified 03/27/19 09:53 REVIEW OF SYSTEMS: CONSTITUTIONAL: Present: generalized weakness GASTROINTESTINAL: Absent: abdominal pain, abdominal distension PHYSICAL EXAM: GENERAL: Awake, alert, and in no acute distress. HEAD: Normal with no signs of trauma. LUNGS: Course BS b/l. HEART: Regular rate and rhythm. ABDOMEN: Soft, nontender, not distended, no guarding or rebound. UPPER EXTREMITIES: RUE contracted at elbow/hand. LUE: cda teacher strength good, Moving without difficulty. LOWER EXTREMITIES: 2+ pulses, warm, well-perfused. No calf tenderness. No peripheral edema. 5/5 dorsi/plantar flexion b/l. PSYCH: Cooperative. Good eye contact. Appropriate mood and affect. Vital Signs Temperature 97.3 F L 04/03/19 15:30 Pulse Rate 59 L 04/03/19 15:30 Respiratory Rate 20 04/03/19 15:30 Blood Pressure 154/62 04/03/19 15:30 O2 Sat by Pulse Oximetry (%) 100 04/03/19 14:52 Lab Results WBC 4.6 K/mm3 (4.0-10.0) 04/03/19 08:20 RBC 3.08 M/mm3 (4.00-5.60) L 04/03/19 08:20 Hgb 7.9 GM/dL (11.7-16.9) L 04/03/19 08:20 Hct 24.8 % (35.4-49) L 04/03/19 08:20 MCV 80.5 fl (80-96) 04/03/19 08:20 MCHC 31.9 g/dl (32.0-35.9) L 04/03/19 08:20 RDW 28.5 % (11.9-15.9) H 04/03/19 08:20 Plt Count 333 K/MM3 (134-434) 04/03/19 08:20 Sodium 141 mmol/L (136-145) 04/03/19 08:20 Potassium 3.8 mmol/L (3.5-5.1) 04/03/19 08:20 Chloride 108 mmol/L (98-107) H 04/03/19 08:20 Carbon Dioxide 23 mmol/L (21-32) 04/03/19 08:20 Anion Gap 10 MMOL/L (8-16) 04/03/19 08:20 BUN 5.0 mg/dL (7-18) L 04/03/19 08:20 Creatinine 0.6 mg/dL (0.55-1.3) 04/03/19 08:20 Random Glucose 88 mg/dL (74-106) 04/03/19 08:20 Calcium 8.9 mg/dL (8.5-10.1) 04/03/19 08:20 Blood Type AB POSITIVE 03/27/19 10:55 Antibody Screen Negative 03/27/19 10:55 INR 1.26 (0.83-1.09) H 03/28/19 05:43 03/28/19: CT scan of chest: Right basilar infiltrate with pleural effusion. b/l pulmonary nodules 03/28: US of abd: no evidence of AAA 08/04/18: CT scan of abd: bulky appearance of the descending colon A/P: 83 yo male with descending circumfrential colonic mass Case D/w Dr. Rodriges and will plan for surgical resection if family is agreeable for later this week. Also, the patient will need to be medically/ cardiac cleared for the procedure. Continue IV heparin and monitor for further signs of bleeding. Transfuse as per the cardiology/medical recommendations. Pulmonary consult recommended Awaiting consult from heme/onc Having bowel movements/ no evidence of obstruction. Fulls as tolerated Awaiting biopsy results/CEA.
[2019-04-03] MEDS: HEPARIN - 25,000 UNIT in SODIUM CHLORIDE 495 ML IV SCH (20:03)
--- NOTE | 2019-04-03 20:48 | PN ---
Progress Note (short form) - Note Progress Note: CONSULT DICTATED Patient seen and examined Multiple co-morbid medical problems. Poor performance status. Obstructing colonic lesion with rectal bleeding . In the face of obstruction and rectal bleeding even were the patient to be a young fit patient without co-morbid issues upfront chemotherapy in an attempt to treat the patient would not be warranted. Obstruction and bleeding are contraindications to up-front systemic chemotherapy. Surgery is procedure of choice and the patients poor performance status and multiple co-morbid conditions may play a role in deciding if patient is a candidate for a colon resection or a more palliative approach with diversion .. The latter would present the problem of dealing with an appliance. Medical, cardiac, pulmonary and surgical team will need to decide upon best surgical approach. No recent abdominal/pelvic CT and this needs to be performed. Chest CT raises possibility of pulmonary mets, Note: Lung nodules were present on CT of abdomen in 07/2018.
[2019-04-03] MEDS: ROSUVASTATIN CA 20 MG TABLET (FP) PO SCH (21:28)
--- NOTE | 2019-04-04 01:50 | CONS ---
DATE OF CONSULTATION: DATE OF DICTATION: 04/03/2019 This is an 83-year-old male who has multiple comorbid medical problems. He has a history of an TX, history of coronary artery bypass graft, a history of multiple cardiac stents, 8 stents, history of strokes in 2008 and 2012 with residual right upper extremity weakness. He presented to the hospital with progressive weakness and with recent rectal bleeding in the prison. In retrospect, the patient in July 2018, had a CT scan which showed pulmonary nodules as well as a fullness in the distal left colon suspicious for possible mass. The patient underwent a colonoscopy today and was found to have an obstructing lesion in the distal colon. FAMILY HISTORY: Includes mother with breast cancer and a father with cancer, questionably etiology. No other cancer history apparently. ALLERGIES: There are no known allergies. HOME MEDICATIONS: Include Eliquis, Toprol, Crestor, and vitamins. Patient presented with weakness. REVIEW OF SYSTEMS: Patient denies headaches, diplopia, epistaxis, dysphagia. He does complain of abdominal pain. No shortness of breath. He does complain of hematuria. He has been anorectic. He has right upper extremity weakness. CURRENT MEDICATIONS: Include heparin, Toprol 25, Crestor 20. CURRENT PHYSICAL EXAMINATION: Vital Signs: Blood pressure 133/54, pulse 59, respiratory 20, temperature 97.3. HEENT: CHEKO, EOM intact. Poor upper dentition. Edentulous lower. Tongue is papillated. Neck: No cervical or supraclavicular nodes. Lungs: Poor inspiratory effort. Sternotomy scar. Cardiac: RSR with systolic murmur. Abdomen: Soft. There is right upper quadrant fullness, but no definite organomegaly and no definite masses. Genitalia: Testes were descended with a circumcised male. Extremities: No significant lower extremity edema. There is no recent abdominal CAT scan. The last abdominopelvic CAT scan was in July, as aforementioned, with pulmonary nodules as well as fullness in the distal left colon, which was suspicious. Recent endoscopy reveals a colonic mass with inability to pass the scope. The patient has presented with rectal bleeding as well. CURRENT LABORATORY: On admission, hematocrit 24. There is no differential. PTT on heparin. Chemistries: 141, 3.8, 108, 23. Glucose 88, GFR 92, iron 16, TIBC 282 for an iron saturation of 5%. Ferritin 137, bilirubin 0.8, AST 15, ALT 9, alkaline phosphatase 89, protein 6.2, albumin 2.8. CEA is pending. Urine: Trace protein. Stool Hemoccult positive. IMPRESSION: This is an 83-year-old with multiple comorbid problems. The problems include myocardial infarction, cerebrovascular accident x2, eight stents, history of atrial fibrillation, anticoagulation, gastrointestinal bleeding, and an obstructive colon lesion. Problem is a difficult one in view of patient's poor performance status and multiple comorbid medical problems. In view of obstructing lesion and rectal bleeding, the patient is not a candidate for upfront chemotherapy to try and shrink the tumor and avoid a surgical approach. Poor performance status also precludes this as well as multiple comorbid issues. Surgical approach therefore would be warranted. The patient has not had a recent abdominopelvic CT scan and this should be performed. Dedicated chest CT scan suggests the possibility of pulmonary nodules as well. If the patient is to undergo surgery, based upon his medical status, decision about type of surgery needs to be considered. Is the patient a candidate for colectomy or not well enough to undergo a big procedure and needs a diversion? This will have to be assessed by the medical team as well as the surgical team. Currently, no role for either radiation or chemotherapy. CHARMAINE BARAJAS M.D. WARNER/[id number] Job #: Jose G/edCustomerJobNumber
[2019-04-04 08:20] LABS: HEMATOCRIT 25.5 % (35.4-49); MCH 25.2 pg (25.7-33.7); MCHC 31.5 g/dl (32.0-35.9); MEAN CELL VOLUME 79.9 fl (80-96); MEAN PLT VOLUME 7.3 fl (7.5-11.1); PLATELET COUNT 362 K/MM3 (134-434); RBC 3.19 M/mm3 (4.00-5.60); RDW 28.7 % (11.9-15.9); WHITE BLOOD COUNT 6.1 K/mm3 (4.0-10.0)
[2019-04-04 09:15] LABS: BLOOD UREA NITROGEN 5.2 mg/dL (7-18); CALCIUM 8.8 mg/dL (8.5-10.1); CREATININE 0.6 mg/dL (0.55-1.3); POTASSIUM 3.4 mmol/L (3.5-5.1)
[2019-04-04] MEDS ORDERED: POTASSIUM CHLORIDE TABS 20 MEQ TABLET.ER (FP) PO ONE (09:16)
--- NOTE | 2019-04-04 09:24 | PN ---
Teaching Attending Note Name of Resident: Billy Jarquin ATTENDING PHYSICIAN STATEMENT I saw and evaluated the patient. I reviewed the resident's note and discussed the case with the resident. I agree with the resident's findings and plan as documented. SUBJECTIVE: Patient is lying in bed with no acute distress. no shortness of breath, no nausea or vomiting. Vital Signs Temperature 98.6 F 04/04/19 06:27 Pulse Rate 62 04/04/19 06:27 Respiratory Rate 20 04/04/19 06:27 Blood Pressure 141/56 L 04/04/19 06:27 O2 Sat by Pulse Oximetry (%) 97 04/03/19 21:00 GENERAL: The patient is awake, alert, and fully oriented, in no acute distress. HEAD: Normal with no signs of trauma. EYES: PERRL, extraocular movements intact, sclera anicteric, conjunctiva clear. ENT: Ears normal, oropharynx clear without exudates, moist mucous membranes. NECK: Trachea midline, full range of motion, supple. LUNGS: Breath sounds equal, clear to auscultation bilaterally, no wheezes, no crackles, no accessory muscle use. HEART: Regular rate and rhythm, S1, S2 without murmur, rub or gallop. ABDOMEN: Soft, nontender, nondistended, normoactive bowel sounds, no guarding, no rebound, no hepatosplenomegaly, no masses. EXTREMITIES: 2+ pulses, warm, well-perfused, no edema. NEUROLOGICAL: Cranial nerves II through XII grossly intact. Normal speech, gait not observed. right sided cva PSYCH: Normal mood, normal affect. SKIN: Warm, dry, normal turgor, no rashes or lesions noted CBCD WBC 6.1 K/mm3 (4.0-10.0) 04/04/19 06:45 RBC 3.19 M/mm3 (4.00-5.60) L 04/04/19 06:45 Hgb 8.0 GM/dL (11.7-16.9) L 04/04/19 06:45 Hct 25.5 % (35.4-49) L 04/04/19 06:45 MCV 79.9 fl (80-96) L 04/04/19 06:45 MCHC 31.5 g/dl (32.0-35.9) L 04/04/19 06:45 RDW 28.7 % (11.9-15.9) H 04/04/19 06:45 Plt Count 362 K/MM3 (134-434) 04/04/19 06:45 MPV 7.3 fl (7.5-11.1) L 04/04/19 06:45 CMP Sodium 141 mmol/L (136-145) 04/04/19 06:45 Potassium 3.4 mmol/L (3.5-5.1) L 04/04/19 06:45 Chloride 107 mmol/L (98-107) 04/04/19 06:45 Carbon Dioxide 27 mmol/L (21-32) 04/04/19 06:45 Anion Gap 7 MMOL/L (8-16) L 04/04/19 06:45 BUN 5.2 mg/dL (7-18) L 04/04/19 06:45 Creatinine 0.6 mg/dL (0.55-1.3) 04/04/19 06:45 Random Glucose 88 mg/dL (74-106) 04/03/19 08:20 Calcium 8.8 mg/dL (8.5-10.1) 04/04/19 06:45 Total Bilirubin 0.8 mg/dL (0.2-1) 03/28/19 05:43 AST 15 U/L (15-37) 03/28/19 05:43 ALT 9 U/L (13-61) L 03/28/19 05:43 Alkaline Phosphatase 89 U/L (45-117) 03/28/19 05:43 Total Protein 6.2 g/dl (6.4-8.2) L 03/28/19 05:43 Albumin 2.8 g/dl (3.4-5.0) L 03/28/19 05:43 CARDIAC ENZYMES Troponin I 0.02 ng/ml (0.00-0.05) 03/27/19 10:55 Current Medications Generic Name Dose Route Start Last Admin Trade Name Freq PRN Reason Stop Dose Admin Heparin Sodium (Porcine) 1,000 unit 04/02/19 12:16 Heparin - IVPUSH PRN PRN Heparin Heparin Sodium (Porcine) 5,000 unit 04/02/19 12:16 04/04/19 03:02 Heparin - IVPUSH 5,000 unit PRN PRN Administration Heparin Heparin Sodium (Porcine) 25, 500 mls @ 18 mls/hr 04/03/19 18:01 04/03/19 20: 03 000 unit/ Sodium Chloride IV 18 mls/hr TITR RAUL Administration Protocol Metoprolol Succinate 25 mg 03/28/19 10:00 04/03/19 09:49 Toprol Xl - PO 25 mg DAILY RAUL Administration Rosuvastatin Calcium 20 mg 03/27/19 22:00 04/03/19 21:28 Crestor - PO 20 mg HS RAUL Administration Home Medications Medication Instructions Recorded Apixaban [Eliquis] 2.5 mg PO BID 05/25/18 Rosuvastatin [Crestor -] 20 mg PO HS 05/25/18 Clopidogrel Bisulfate [Plavix] 75 mg PO DAILY 03/27/19 Ferrous Sulfate 325 mg PO DAILY 03/27/19 Metoprolol Succinate 25 mg PO DAILY 03/27/19 Microbiology 03/27/19 13:55 Blood - Peripheral Venous Blood Culture - Final NO GROWTH AFTER 5 DAYS INCUBATION 03/27/19 13:45 Blood - Peripheral Venous Blood Culture - Final NO GROWTH AFTER 5 DAYS INCUBATION 03/27/19 11:10 Urine - Urine Clean Catch Urine Culture - Final NO GROWTH OBTAINED Assessment and plan: Patient is an 83yo DNR/DNI male with PMHx of diverticulosis, Afib on Eliquis and Plavix , Iron deficiency anemia (diagnosed October, non compliant with iron supplements due to constipation) CAD (status post multiple stents, CABG), 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 # Large colonic mass . s/p colonoscopy yesterday with pathology result of adenoca. discussed with the surgeon , as per surgeon he is not a candidate for sx. oncology consult dr Aparicio , CEA to follow. #s/p CAP : completed course of antibiotics # H/o A fib: resume heparin gtt , cont toprol # H/o CVA: cont statin, AC # Malnutrition and cachexia. # Hypokalemia: resolved. monitor and replete as needed PT eval
[2019-04-04] MEDS: metoPROLOL SUCCINATE 25 MG TAB.SR.24H (FP) PO SCH (10:57)
--- NOTE | 2019-04-04 13:54 | PN ---
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 Patient seen and examined and verifies no C/o of issues overnight or event overnight. Had bm and urinated. Does c/o of abdominal pain, which could be likely due to colonoscopy done. Denies f/c/n/v/d/chest pain/sob/weakness/falls. OBJECTIVE: Vital Signs Period Temp Pulse Resp BP Sys/Greer Pulse Ox Last 24 Hr 97.3 F-98.6 F 50-67 18-20 85-154/37-69 97-100 GENERAL: AOX3, NAD EYES: PERRL, EOMI ENT: oropharynx clear without exudates, dry mucous membranes. NECK: ROM intact, no LAD, supple. LUNGS: CTAB, no wheezes, no crackles, HEART: Rate mildly bradycardic, irregular rhythm, no M/G/R ABDOMEN: Soft, nontender, nondistended, normoactive bowel sounds, no guarding EXTREMITIES: 2+ pulses, warm, well-perfused, no edema. Rectal: (03/28/19) NANO: Black stool on gloves. No visible blood. No hemorrhoids - external or internal noted. No fissures or skin tags. NEUROLOGICAL: Cranial nerves II through XII grossly intact. Facial effacement on the right side- chronic. Right sided UE weakness and deformity noted PSYCH: Normal mood, normal affect. SKIN: Warm Laboratory Results - last 24 hr CBC,CMP WBC 6.1 K/mm3 (4.0-10.0) 04/04/19 06:45 RBC 3.19 M/mm3 (4.00-5.60) L 04/04/19 06:45 Hgb 8.0 GM/dL (11.7-16.9) L 04/04/19 06:45 Hct 25.5 % (35.4-49) L 04/04/19 06:45 MCV 79.9 fl (80-96) L 04/04/19 06:45 MCH 25.2 pg (25.7-33.7) L 04/04/19 06:45 MCHC 31.5 g/dl (32.0-35.9) L 04/04/19 06:45 RDW 28.7 % (11.9-15.9) H 04/04/19 06:45 Plt Count 362 K/MM3 (134-434) 04/04/19 06:45 MPV 7.3 fl (7.5-11.1) L 04/04/19 06:45 Absolute Neuts (auto) 4.3 K/mm3 (1.5-8.0) 03/28/19 05:43 Neutrophils % 72.0 % (42.8-82.8) 03/28/19 05:43 Lymphocytes % 19.1 % (8-40) D 03/28/19 05:43 Monocytes % 5.7 % (3.8-10.2) 03/28/19 05:43 Eosinophils % 1.3 % (0-4.5) D 03/28/19 05:43 Basophils % 1.9 % (0-2.0) 03/28/19 05:43 Nucleated RBC % 0 % (0-0) 03/28/19 05:43 Hypochromia 1+ 03/28/19 05:43 Platelet Estimate Normal 03/28/19 05:43 Polychromasia 1+ 03/28/19 05:43 Poikilocytosis 1+ 03/28/19 05:43 Anisocytosis 1+ 03/28/19 05:43 Microcytosis 1+ 03/28/19 05:43 Macrocytosis 0 03/28/19 05:43 Schuyler Cells 1+ 03/28/19 05:43 Sodium 141 mmol/L (136-145) 04/04/19 06:45 Potassium 3.4 mmol/L (3.5-5.1) L 04/04/19 06:45 Chloride 107 mmol/L (98-107) 04/04/19 06:45 Carbon Dioxide 27 mmol/L (21-32) 04/04/19 06:45 Anion Gap 7 MMOL/L (8-16) L 04/04/19 06:45 BUN 5.2 mg/dL (7-18) L 04/04/19 06:45 Creatinine 0.6 mg/dL (0.55-1.3) 04/04/19 06:45 Est GFR (CKD-EPI)AfAm 107.01 04/04/19 06:45 Est GFR (CKD-EPI)NonAf 92.33 04/04/19 06:45 Random Glucose 110 mg/dL (74-106) H 04/04/19 06:45 Calcium 8.8 mg/dL (8.5-10.1) 04/04/19 06:45 Phosphorus 3.2 mg/dL (2.5-4.9) 04/02/19 08:20 Magnesium 1.9 mg/dL (1.8-2.4) 04/02/19 08:20 Iron 16 ug/dL (50-175) L 03/28/19 05:43 TIBC 282 ug/dL (250-450) 03/28/19 05:43 Iron Saturation 5 % (17.5-39) L 03/28/19 05:43 Unsaturated IBC 266 ug/dL (200-275) 03/28/19 05:43 Ferritin 137.7 ng/ml (8-388) 03/28/19 05:43 Total Bilirubin 0.8 mg/dL (0.2-1) 03/28/19 05:43 AST 15 U/L (15-37) 03/28/19 05:43 ALT 9 U/L (13-61) L 03/28/19 05:43 Alkaline Phosphatase 89 U/L (45-117) 03/28/19 05:43 Troponin I 0.02 ng/ml (0.00-0.05) 03/27/19 10:55 Total Protein 6.2 g/dl (6.4-8.2) L 03/28/19 05:43 Albumin 2.8 g/dl (3.4-5.0) L 03/28/19 05:43 Active Medications Current Medications Heparin Sodium (Porcine) (Heparin -) 1,000 unit IVPUSH PRN PRN PRN Reason: Heparin Heparin Sodium (Porcine) (Heparin -) 5,000 unit IVPUSH PRN PRN PRN Reason: Heparin Last Admin: 04/04/19 03:02 Dose: 5,000 unit Heparin Sodium (Porcine) 25, (000 unit/ Sodium Chloride) 500 mls @ 18 mls/hr IV TITR RAUL; Protocol Last Admin: 04/03/19 20:03 Dose: 18 mls/hr Metoprolol Succinate (Toprol Xl -) 25 mg PO DAILY RAUL Last Admin: 04/04/19 10:57 Dose: 25 mg Rosuvastatin Calcium (Crestor -) 20 mg PO HS [facility] Last Admin: 04/03/19 21:28 Dose: 20 mg Home Medications Medication Instructions Recorded Apixaban [Eliquis] 2.5 mg PO BID 05/25/18 Rosuvastatin [Crestor -] 20 mg PO HS 05/25/18 Clopidogrel Bisulfate [Plavix] 75 mg PO DAILY 03/27/19 Ferrous Sulfate 325 mg PO DAILY 03/27/19 Metoprolol Succinate 25 mg PO DAILY 03/27/19 Microbiology 03/27/19 13:55 Blood - Peripheral Venous Blood Culture - Final NO GROWTH AFTER 5 DAYS INCUBATION 03/27/19 13:45 Blood - Peripheral Venous Blood Culture - Final NO GROWTH AFTER 5 DAYS INCUBATION 03/27/19 11:10 Urine - Urine Clean Catch Urine Culture - Final NO GROWTH OBTAINED ASSESSMENT/PLAN: 83 y/o M, pmh of [place](age 37), CABG (1990), CAD (8 stents), stroke (2008 and 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 #Generalized weakness likely 2/2 to abdominal malignancy seen on CT vs Anemia CTAP 08/18- cannot rule out lesion in distal descending colon. Possibility of malignancy which could cause weakness. Colonoscopy- shows circumferential mass in the left colon w/ luminal compromise inhibiting evaluation of the proximal colon. CT a/p w/ Contrast ordered- will f/u results As per family, they want to hold of on decision for surgery until CAT scan results are back Prepping for medical and cardiac clearance in the case surgery is decided Cardio consulted- will await cardiac clearance Bx results of colonoscopy is pending Oncology agrees surgery is the best option given the setting of obstruction/ bleeding. Heparin resumed #A-Fib Heparin cont #Stroke hx Will hold Eliquis due to possible surgery #CAD cont Metoprolol #FEN Monitor Electrolytes #DVT ppx: heparin Dispo: f/u CT a/p results, resume full liquid diet Visit type - Emergency Visit Emergency Visit: Yes ED Registration Date: 03/27/19 Care time: The patient presented to the Emergency Department on the above date and was hospitalized for further evaluation of their emergent condition. - New Patient This patient is new to me today: Yes Date on this admission: 04/05/19 - Critical Care Critical Care patient: No - Discharge Referral Referred to [facility] No ATTENDING PHYSICIAN STATEMENT I saw and evaluated the patient. I reviewed the resident's note and discussed the case with the resident. I agree with the resident's findings and plan as documented. SUBJECTIVE: OBJECTIVE: ASSESSMENT AND PLAN:
--- NOTE | 2019-04-04 15:30 | CON.CARD ---
Consult Consult Specialty:: Cardiology Referred by:: Hospitalist Medicine Reason for Consultation:: Pre-op CV evaluation - History of Present Illness Chief Complaint: Anemia, weakness History of Present Illness: 83 M h/o paroxysmal afib on eliquis, CAD s/p stents x 9 last in 2005 and CABG with reop on Plavix, HTN, HLD, CVA x2 with residual speech and right-sided weakness, diverticulosis weakness, anemia, fatigue, previously declined colonoscopy but finally consented, descending circumferential colonic mass was revealed, path confirmed adenocarcinoma. Patient denies chest pain, dyspnea, palpitations, near or true syncope, orthopnea, PND oe LE edema. Now off Eliquis on heparin gtt, staging evaluation reveals liver metastases., enlarging colon lesion with decreased lumen area. 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 History of Recent Travel: No Home Medications - Allergies Allergies/Adverse Reactions: Allergies Allergy/AdvReac Type Severity Reaction Status Date / Time No Known Allergies Allergy Verified 03/27/19 09:53 - Home Medications Home Medications: Ambulatory Orders Apixaban [Eliquis] 2.5 mg PO BID 05/25/18 Rosuvastatin [Crestor -] 20 mg PO HS 05/25/18 Clopidogrel Bisulfate [Plavix] 75 mg PO DAILY 03/27/19 Ferrous Sulfate 325 mg PO DAILY 03/27/19 Metoprolol Succinate 25 mg PO DAILY 03/27/19 Review of Systems - Review of Systems Constitutional: reports: Weakness Vital Signs: Vital Signs Temperature 98.6 F 04/04/19 06:27 Pulse Rate 62 04/04/19 06:27 Respiratory Rate 20 04/04/19 06:27 Blood Pressure 141/56 L 04/04/19 06:27 O2 Sat by Pulse Oximetry (%) 97 04/03/19 21:00 Constitutional: Yes: No Distress, Calm Neck: Yes: Supple Respiratory: Yes: Regular, Diminished Gastrointestinal: Yes: Soft, Hypoactive Bowel Sounds Cardiovascular: Yes: Pulse Irregular JVD: No Carotid Bruit: No Heart Sounds: Yes: S1, S2 Murmur: Yes: Systolic Murmur, Grade 1 Edema: No - Other Data Labs, Other Data: CBC, BMP 04/04/19 06:45 04/04/19 06:45 INR, PTT INR 1.26 (0.83-1.09) H 03/28/19 05:43 Problem List - Problems (1) Colon adenocarcinoma Code(s): C18.9 - MALIGNANT NEOPLASM OF COLON, UNSPECIFIED Assessment/Plan 04/02/2019 Echo: Normal LV and RV size and fxn, LVEF 55-60%, mod MR, mild TR and AR Problem List - Problems (1) Anemia Code(s): D64.9 - ANEMIA, UNSPECIFIED Qualifiers: Anemia type: iron deficiency Iron deficiency anemia type: chronic blood loss Qualified Code(s): D50.0 - Iron deficiency anemia secondary to blood loss (chronic) (2) Atrial fibrillation with RVR Code(s): I48.91 - UNSPECIFIED ATRIAL FIBRILLATION (3) Cerebrovascular accident Code(s): I63.9 - CEREBRAL INFARCTION, UNSPECIFIED (4) CAD (coronary artery disease) Code(s): I25.10 - ATHSCL HEART DISEASE OF [place] CORONARY ARTERY W/O ANG PCTRS Qualifiers: Coronary Disease-Associated Artery/Lesion type: [place] artery [place] vs. transplanted heart: [place] heart Associated angina: without angina Qualified Code(s): I25.10 - Atherosclerotic heart disease of [place] coronary artery without angina pectoris (5) Hyperlipidemia Code(s): E78.5 - HYPERLIPIDEMIA, UNSPECIFIED Qualifiers: Hyperlipidemia type: pure hypercholesterolemia Qualified Code(s): E78.00 - Pure hypercholesterolemia, unspecified; E78.0 - Pure hypercholesterolemia (6) Hypertension Code(s): I10 - ESSENTIAL (PRIMARY) HYPERTENSION Qualifiers: Hypertension type: essential hypertension Qualified Code(s): I10 - Essential (primary) hypertension Assessment/Plan 1. Iron deficiency anemia referable to left colonic adenocarcinoma and GI bleed h/o transfusion 2. Paroxysmal AF currently in sinus rhythm 3. CAD s/p stents x 9, CABG with reop 4. HTN 5. Hypercholesterolemia 6. CVA x 2 with residual dysarthria and right sided weakness 7. 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 Monitor Hgb post transfusion, maintain Hgb>8.0. Currently off Eliquis and Plavix on heparin gtt. May proceed with with left hemicolectomy from cardiac- standpoint w/o further testing if necessary for palliation. Restart Eliquis without concomitant Plavix once post-op hemostasis has been achieved, awaiting heme-onc input 2. Continue Toprol XL 25 QD and Crestor 20 mg QHS as hemodynamics tolerate 3. Thank you for consultative opportunity
--- NOTE | 2019-04-04 15:49 | PN ---
Progress Note (short form) - Note Progress Note: Called by pathologist Dr. Hill. Path from left colon mass biopsy c/w adenocarcinoma. Onc eval, surgical eval, CEA pending
--- NOTE | 2019-04-04 17:26 | PATH ---
Surgical Pathology Report Patient Name: MARGOT FAY Med. Rec. #: [id number] /Age/Gender: 1935 (Age: 83) / M Account: [id number] Location: [address] [place] [address] Taken: 04/03/2019 Received: 04/03/2019 Reported: 04/04/2019 Physicians: Prabhu Woodard D.O. Specimen(s) Received LEFT COLON MASS Clinical History Anemia, rectal bleeding Postoperative diagnosis: Diverticulosis, left colon mass, hemorrhoids Final Diagnosis LEFT COLON MASS, BIOPSY: ADENOCARCINOMA, MODERATELY DIFFERENTIATED. Immunohistochemistry (IHC) Testing for Mismatch Repair (MMR) Proteins result pending. Intradepartmental case reviewed with concordance on diagnosis. This case was discussed with Dr. Woodard on April 04, 2019. Electronically Signed Low Hill M.D. Addendum Reported: 04/05/2019 Addendum Diagnosis Immunohistochemistry (IHC) Testing for Mismatch Repair (MMR) Proteins performed at [facility] in [place], [place] ([id number]) and interpreted at [facility] show the following results: MLH1 Intact nuclear expression MSH2 Intact nuclear expression MSH6 Intact nuclear expression PMS2 Intact nuclear expression Background nonneoplastic tissue/internal control with intact nuclear expression IHC Interpretation: No loss of nuclear expression of MMR proteins: low probability of microsatellite instability-high(MSI-H) Low Hill M.D. Gross Description Received in formalin labeled "biopsy left colon mass," is a 0.7 x 0.6 x 0.1 cm aggregate of estrada soft tissue fragments. The formalin is filtered and the specimen is entirely submitted in one cassette. /04/03/201904/03/2019
[2019-04-04] MEDS: HEPARIN - 25,000 UNIT in SODIUM CHLORIDE 495 ML IV SCH (17:53)
[2019-04-04] MEDS: ROSUVASTATIN CA 20 MG TABLET (FP) PO SCH (21:20)
[2019-04-05] MEDS: HEPARIN - 25,000 UNIT in SODIUM CHLORIDE 495 ML IV SCH (01:41)
[2019-04-05 09:21] LABS: HEMOGLOBIN 7.9 GM/dL (11.7-16.9); MCH 25.4 pg (25.7-33.7); MCHC 31.4 g/dl (32.0-35.9); MEAN CELL VOLUME 80.8 fl (80-96); MEAN PLT VOLUME 7.2 fl (7.5-11.1); PLATELET COUNT 356 K/MM3 (134-434); RBC 3.09 M/mm3 (4.00-5.60); RDW 28.8 % (11.9-15.9); WHITE BLOOD COUNT 5.5 K/mm3 (4.0-10.0)
--- NOTE | 2019-04-05 09:52 | PN ---
Progress Note (short form) - Note Progress Note: Attending Surgeon Seen in f/u last PM and case d/w the patient and his daughter; bx. is positive for adenocarcinoma and CT a/p and chest is c/w metastatic disease; in light of this surgical resection for cure is not possible and given patients multiple comorbid conditions and seemingly poor performance status again surgery would be an undo burden; family is interested perhaps in Hospice care/evaluation and at this time there is nothing to palliate. Ruben Rodriges MD FACS
[2019-04-05 10:10] LABS: ALBUMIN 2.4 g/dl (3.4-5.0); BILIRUBIN,TOTAL 0.3 mg/dL (0.2-1); BLOOD UREA NITROGEN 4.7 mg/dL (7-18); CALCIUM 8.7 mg/dL (8.5-10.1); CREATININE 0.6 mg/dL (0.55-1.3); MAGNESIUM 2.1 mg/dL (1.8-2.4); POTASSIUM 3.2 mmol/L (3.5-5.1); TOT PROT 5.6 g/dl (6.4-8.2)
[2019-04-05] MEDS: metoPROLOL SUCCINATE 25 MG TAB.SR.24H (FP) PO SCH (10:59)
[2019-04-05] MEDS: KCL 10 MEQ IVPB 10 MEQ/100 ML INFUS.BAG IVPB SCH ×3 (10:59→13:54)
--- NOTE | 2019-04-05 17:16 | PN ---
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 Patient seen and examined and today has no C/o of issues overnight or event overnight. Had bm and urinated. Denies f/c/n/v/d/chest pain/sob/weakness/falls. OBJECTIVE: Vital Signs Period Temp Pulse Resp BP Sys/Greer Pulse Ox Last 24 Hr 97.9 F-98.4 F 56-62 20-20 128-158/52-63 98 GENERAL: AOX3, NAD EYES: PERRL, EOMI ENT: oropharynx clear without exudates, dry mucous membranes. NECK: ROM intact, no LAD, supple. LUNGS: CTAB, no wheezes, no crackles, HEART: Rate mildly bradycardic, irregular rhythm, no M/G/R ABDOMEN: Soft, nontender, nondistended, normoactive bowel sounds, no guarding EXTREMITIES: 2+ pulses, warm, well-perfused, no edema. Rectal: (03/28/19) NANO: Black stool on gloves. No visible blood. No hemorrhoids - external or internal noted. No fissures or skin tags. NEUROLOGICAL: Cranial nerves II through XII grossly intact. Facial effacement on the right side- chronic. Right sided UE weakness and deformity noted PSYCH: Normal mood, normal affect. SKIN: Warm Laboratory Results - last 24 hr CBC,CMP WBC 5.5 K/mm3 (4.0-10.0) 04/05/19 08:10 RBC 3.09 M/mm3 (4.00-5.60) L 04/05/19 08:10 Hgb 7.9 GM/dL (11.7-16.9) L 04/05/19 08:10 Hct 25.0 % (35.4-49) L 04/05/19 08:10 MCV 80.8 fl (80-96) 04/05/19 08:10 MCH 25.4 pg (25.7-33.7) L 04/05/19 08:10 MCHC 31.4 g/dl (32.0-35.9) L 04/05/19 08:10 RDW 28.8 % (11.9-15.9) H 04/05/19 08:10 Plt Count 356 K/MM3 (134-434) 04/05/19 08:10 MPV 7.2 fl (7.5-11.1) L 04/05/19 08:10 Absolute Neuts (auto) 4.3 K/mm3 (1.5-8.0) 03/28/19 05:43 Neutrophils % 72.0 % (42.8-82.8) 03/28/19 05:43 Lymphocytes % 19.1 % (8-40) D 03/28/19 05:43 Monocytes % 5.7 % (3.8-10.2) 03/28/19 05:43 Eosinophils % 1.3 % (0-4.5) D 03/28/19 05:43 Basophils % 1.9 % (0-2.0) 03/28/19 05:43 Nucleated RBC % 0 % (0-0) 03/28/19 05:43 Hypochromia 1+ 03/28/19 05:43 Platelet Estimate Normal 03/28/19 05:43 Polychromasia 1+ 03/28/19 05:43 Poikilocytosis 1+ 03/28/19 05:43 Anisocytosis 1+ 03/28/19 05:43 Microcytosis 1+ 03/28/19 05:43 Macrocytosis 0 03/28/19 05:43 [place] Cells 1+ 03/28/19 05:43 Sodium 141 mmol/L (136-145) 04/05/19 08:10 Potassium 3.2 mmol/L (3.5-5.1) L 04/05/19 08:10 Chloride 105 mmol/L (98-107) 04/05/19 08:10 Carbon Dioxide 28 mmol/L (21-32) 04/05/19 08:10 Anion Gap 7 MMOL/L (8-16) L 04/05/19 08:10 BUN 4.7 mg/dL (7-18) L 04/05/19 08:10 Creatinine 0.6 mg/dL (0.55-1.3) 04/05/19 08:10 Est GFR (CKD-EPI)AfAm 107.01 04/05/19 08:10 Est GFR (CKD-EPI)NonAf 92.33 04/05/19 08:10 Random Glucose 91 mg/dL (74-106) 04/05/19 08:10 Calcium 8.7 mg/dL (8.5-10.1) 04/05/19 08:10 Phosphorus 3.2 mg/dL (2.5-4.9) 04/02/19 08:20 Magnesium 2.1 mg/dL (1.8-2.4) 04/05/19 08:10 Iron 16 ug/dL (50-175) L 03/28/19 05:43 TIBC 282 ug/dL (250-450) 03/28/19 05:43 Iron Saturation 5 % (17.5-39) L 03/28/19 05:43 Unsaturated IBC 266 ug/dL (200-275) 03/28/19 05:43 Ferritin 137.7 ng/ml (8-388) 03/28/19 05:43 Total Bilirubin 0.3 mg/dL (0.2-1) 04/05/19 08:10 AST 21 U/L (15-37) 04/05/19 08:10 ALT 14 U/L (13-61) 04/05/19 08:10 Alkaline Phosphatase 103 U/L (45-117) 04/05/19 08:10 Troponin I 0.02 ng/ml (0.00-0.05) 03/27/19 10:55 Total Protein 5.6 g/dl (6.4-8.2) L 04/05/19 08:10 Albumin 2.4 g/dl (3.4-5.0) L 04/05/19 08:10 Carcinoembryonic Ag 26.1 ng/mL (0.0-4.7) H 04/03/19 19:20 Active Medications Generic Name Dose Route Start Last Admin Trade Name Freq PRN Reason Stop Dose Admin Heparin Sodium (Porcine) 1,000 unit 04/02/19 12:16 Heparin - IVPUSH PRN PRN Heparin Heparin Sodium (Porcine) 5,000 unit 04/02/19 12:16 04/04/19 03:02 Heparin - IVPUSH 5,000 unit PRN PRN Administration Heparin Heparin Sodium (Porcine) 25, 500 mls @ 18 mls/hr 04/03/19 18:01 04/05/19 01: 41 000 unit/ Sodium Chloride IV 18 mls/hr TITR RAUL Administration Protocol Metoprolol Succinate 25 mg 03/28/19 10:00 04/05/19 10:59 Toprol Xl - PO 25 mg DAILY RAUL Administration Rosuvastatin Calcium 20 mg 03/27/19 22:00 04/04/19 21:20 Crestor - PO 20 mg HS RAUL Administration ASSESSMENT/PLAN: 83 y/o M, pmh of [place](age 37), CABG (1990), CAD (8 stents), stroke (2008 and 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 - New Patient This patient is new to me today: Yes Date on this admission: 04/06/19 - Critical Care Critical Care patient: No - Discharge Referral Referred to [facility] Med P.C.: No ATTENDING PHYSICIAN STATEMENT I saw and evaluated the patient. I reviewed the resident's note and discussed the case with the resident. I agree with the resident's findings and plan as documented. SUBJECTIVE: OBJECTIVE: ASSESSMENT AND PLAN:
--- NOTE | 2019-04-05 18:14 | PN ---
Teaching Attending Note Name of Resident: Billy Jarquin ATTENDING PHYSICIAN STATEMENT I saw and evaluated the patient. I reviewed the resident's note and discussed the case with the resident. I agree with the resident's findings and plan as documented. SUBJECTIVE: Patient is lying in bed with no acute distress. no shortness of breath, no nausea or vomiting. No new changes. Vital Signs Temperature 97.9 F 04/05/19 15:00 Pulse Rate 56 L 04/05/19 15:00 Respiratory Rate 20 04/05/19 15:00 Blood Pressure 143/63 04/05/19 15:00 O2 Sat by Pulse Oximetry (%) 98 04/05/19 09:00 GENERAL: The patient is awake, alert, and fully oriented, in no acute distress. HEAD: Normal with no signs of trauma. EYES: PERRL, extraocular movements intact, sclera anicteric, conjunctiva clear. ENT: Ears normal, oropharynx clear without exudates, moist mucous membranes. NECK: Trachea midline, full range of motion, supple. LUNGS: Breath sounds equal, clear to auscultation bilaterally, no wheezes, no crackles, no accessory muscle use. HEART: Regular rate and rhythm, S1, S2 without murmur, rub or gallop. ABDOMEN: Soft, NT, ND, normoactive bowel sounds, no guarding, no rebound, no hepatosplenomegaly, no masses. EXTREMITIES: 2+ pulses, warm, well-perfused, no edema. NEUROLOGICAL: Cranial nerves II through XII grossly intact. Normal speech, gait not observed. right sided cva PSYCH: Normal mood, normal affect. SKIN: Warm, dry, normal turgor, no rashes or lesions noted CBCD WBC 5.5 K/mm3 (4.0-10.0) 04/05/19 08:10 RBC 3.09 M/mm3 (4.00-5.60) L 04/05/19 08:10 Hgb 7.9 GM/dL (11.7-16.9) L 04/05/19 08:10 Hct 25.0 % (35.4-49) L 04/05/19 08:10 MCV 80.8 fl (80-96) 04/05/19 08:10 MCHC 31.4 g/dl (32.0-35.9) L 04/05/19 08:10 RDW 28.8 % (11.9-15.9) H 04/05/19 08:10 Plt Count 356 K/MM3 (134-434) 04/05/19 08:10 MPV 7.2 fl (7.5-11.1) L 04/05/19 08:10 CMP Sodium 141 mmol/L (136-145) 04/05/19 08:10 Potassium 3.2 mmol/L (3.5-5.1) L 04/05/19 08:10 Chloride 105 mmol/L (98-107) 04/05/19 08:10 Carbon Dioxide 28 mmol/L (21-32) 04/05/19 08:10 Anion Gap 7 MMOL/L (8-16) L 04/05/19 08:10 BUN 4.7 mg/dL (7-18) L 04/05/19 08:10 Creatinine 0.6 mg/dL (0.55-1.3) 04/05/19 08:10 Random Glucose 91 mg/dL (74-106) 04/05/19 08:10 Calcium 8.7 mg/dL (8.5-10.1) 04/05/19 08:10 Total Bilirubin 0.3 mg/dL (0.2-1) 04/05/19 08:10 AST 21 U/L (15-37) 04/05/19 08:10 ALT 14 U/L (13-61) 04/05/19 08:10 Alkaline Phosphatase 103 U/L (45-117) 04/05/19 08:10 Total Protein 5.6 g/dl (6.4-8.2) L 04/05/19 08:10 Albumin 2.4 g/dl (3.4-5.0) L 04/05/19 08:10 CARDIAC ENZYMES Troponin I 0.02 ng/ml (0.00-0.05) 03/27/19 10:55 Current Medications Generic Name Dose Route Start Last Admin Trade Name Freq PRN Reason Stop Dose Admin Apixaban 2.5 mg 04/05/19 22:00 Eliquis - PO BID RAUL Metoprolol Succinate 25 mg 03/28/19 10:00 04/05/19 10:59 Toprol Xl - PO 25 mg DAILY RAUL Administration Rosuvastatin Calcium 20 mg 03/27/19 22:00 04/04/19 21:20 Crestor - PO 20 mg HS RAUL Administration Home Medications Medication Instructions Recorded Apixaban [Eliquis] 2.5 mg PO BID 05/25/18 Rosuvastatin [Crestor -] 20 mg PO HS 05/25/18 Clopidogrel Bisulfate [Plavix] 75 mg PO DAILY 03/27/19 Ferrous Sulfate 325 mg PO DAILY 03/27/19 Metoprolol Succinate 25 mg PO DAILY 03/27/19 Microbiology 03/27/19 13:55 Blood - Peripheral Venous Blood Culture - Final NO GROWTH AFTER 5 DAYS INCUBATION 03/27/19 13:45 Blood - Peripheral Venous Blood Culture - Final NO GROWTH AFTER 5 DAYS INCUBATION 03/27/19 11:10 Urine - Urine Clean Catch Urine Culture - Final NO GROWTH OBTAINED Assessment and plan: Patient is an 83yo DNR/DNI male with PMHx of diverticulosis, Afib on Eliquis and Plavix , Iron deficiency anemia (diagnosed October, non compliant with iron supplements due to constipation) CAD (status post multiple stents, CABG), 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 # Large colonic mass . s/p colonoscopy yesterday with pathology result of adenoca. discussed with the surgeon , as per surgeon he is not a candidate for sx. oncology consult dr Aparicio , CEA to follow. #s/p CAP : completed course of antibiotics # H/o A fib: on eliquis now, cont toprol # H/o CVA: cont statin, AC # Malnutrition and cachexia. # Hypokalemia: resolved. monitor and replete as needed PT eval
[2019-04-05] MEDS ORDERED: POTASSIUM CHLORIDE ORAL LIQUID 20 MEQ/15 ML PO ONE (19:27)
[2019-04-05] MEDS: APIXABAN 2.5 MG TABLET PO SCH (21:08)
[2019-04-05] MEDS: ROSUVASTATIN CA 20 MG TABLET (FP) PO SCH (21:08)
[2019-04-06 08:44] LABS: HEMATOCRIT 25.8 % (35.4-49); HEMOGLOBIN 8.1 GM/dL (11.7-16.9); MCH 25.3 pg (25.7-33.7); MCHC 31.5 g/dl (32.0-35.9); MEAN CELL VOLUME 80.3 fl (80-96); MEAN PLT VOLUME 7.1 fl (7.5-11.1); PLATELET COUNT 360 K/MM3 (134-434); RBC 3.21 M/mm3 (4.00-5.60); RDW 29.2 % (11.9-15.9); WHITE BLOOD COUNT 7.4 K/mm3 (4.0-10.0)
[2019-04-06 09:05] LABS: BLOOD UREA NITROGEN 5.1 mg/dL (7-18); CALCIUM 8.8 mg/dL (8.5-10.1); CREATININE 0.6 mg/dL (0.55-1.3); POTASSIUM 4.3 mmol/L (3.5-5.1)
[2019-04-06 10:24] LABS: INR 1.22 (0.83-1.09); PROTHROMBIN TIME (PATIENT) 14.4 SEC (9.7-13.0)
[2019-04-06 10:27] LABS: ACTIVATED PTT 30.5 SECONDS (25.2-36.5)
[2019-04-06] MEDS: metoPROLOL SUCCINATE 25 MG TAB.SR.24H (FP) PO SCH (10:48)
[2019-04-06] MEDS: APIXABAN 2.5 MG TABLET PO SCH ×2 (10:48→21:16)
--- NOTE | 2019-04-06 12:06 | PN ---
Progress Note, Physician History of Present Illness: Staging evaluation reveals liver and lung metastases., enlarging colon lesion with decreased lumen area, not operative candidate and Eliquis resumed, denies recurrent hematochezia or melena. CEA elevated. - Current Medication List Current Medications: Active Medications Apixaban (Eliquis -) 2.5 mg PO BID [facility] Last Admin: 04/06/19 10:48 Dose: 2.5 mg Metoprolol Succinate (Toprol Xl -) 25 mg PO DAILY [facility] Last Admin: 04/06/19 10:48 Dose: 25 mg Rosuvastatin Calcium (Crestor -) 20 mg PO HS [facility] Last Admin: 04/05/19 21:08 Dose: 20 mg - Objective Vital Signs: Vital Signs Temperature 97.9 F 04/06/19 10:00 Pulse Rate 55 L 04/06/19 10:00 Respiratory Rate 20 04/06/19 10:00 Blood Pressure 128/66 04/06/19 10:00 O2 Sat by Pulse Oximetry (%) 97 04/06/19 09:00 Constitutional: Yes: No Distress, Calm, Cachectic Neck: Yes: Supple Cardiovascular: Yes: Regular Rate and Rhythm Respiratory: Yes: Regular, Diminished Gastrointestinal: Yes: Soft, Hypoactive Bowel Sounds Edema: No Labs: CBC, BMP 04/06/19 08:10 04/06/19 08:10 INR, PTT INR 1.22 (0.83-1.09) H 04/06/19 08:10 Problem List - Problems (1) Colon adenocarcinoma Code(s): C18.9 - MALIGNANT NEOPLASM OF COLON, UNSPECIFIED Assessment/Plan 04/02/2019 Echo: Normal LV and RV size and fxn, LVEF 55-60%, mod MR, mild TR and AR Problem List - Problems (1) Anemia Code(s): D64.9 - ANEMIA, UNSPECIFIED Qualifiers: Anemia type: iron deficiency Iron deficiency anemia type: chronic blood loss Qualified Code(s): D50.0 - Iron deficiency anemia secondary to blood loss (chronic) (2) Atrial fibrillation with RVR Code(s): I48.91 - UNSPECIFIED ATRIAL FIBRILLATION (3) Cerebrovascular accident Code(s): I63.9 - CEREBRAL INFARCTION, UNSPECIFIED (4) CAD (coronary artery disease) Code(s): I25.10 - ATHSCL HEART DISEASE OF [place] CORONARY ARTERY W/O ANG PCTRS Qualifiers: Coronary Disease-Associated Artery/Lesion type: [place] artery [place] vs. transplanted heart: [place] heart Associated angina: without angina Qualified Code(s): I25.10 - Atherosclerotic heart disease of [place] coronary artery without angina pectoris (5) Hyperlipidemia Code(s): E78.5 - HYPERLIPIDEMIA, UNSPECIFIED Qualifiers: Hyperlipidemia type: pure hypercholesterolemia Qualified Code(s): E78.00 - Pure hypercholesterolemia, unspecified; E78.0 - Pure hypercholesterolemia (6) Hypertension Code(s): I10 - ESSENTIAL (PRIMARY) HYPERTENSION Qualifiers: Hypertension type: essential hypertension Qualified Code(s): I10 - Essential (primary) hypertension Assessment/Plan 1. Iron deficiency anemia referable to left colonic adenocarcinoma with mets to liver and lung and GI bleed h/o transfusion 2. Paroxysmal AF currently in sinus rhythm 3. CAD s/p stents x 9, CABG with reop 4. HTN 5. Hypercholesterolemia 6. CVA x 2 with residual dysarthria and right sided weakness 7. 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 Monitor Hgb post transfusion, maintain Hgb>8.0. Not operative candidate. Resumed Eliquis 2.5 bid without concomitant Plavix, awaiting heme-onc input vs palliative care 2. Continue Toprol XL 25 QD and Crestor 20 mg QHS as hemodynamics tolerate 3. Thank you for consultative opportunity
--- NOTE | 2019-04-06 14:26 | PN ---
Progress Note (short form) - Note Progress Note: Patient seen and examined Path adenoca of colon with likely liver mets and possible lung mets. Near obstructing lesion described on colonoscopy . Aggressive surgery not doable. ?? diverting colostomy( under local and sedation) vs hospice and no intervention seem like options to be considered.
--- NOTE | 2019-04-06 16:16 | PN ---
Physical Exam: SUBJECTIVE: Patient seen and examined and today has no C/o of issues overnight or event overnight. Had bm and urinated. Pt tolerating diet well. Denies f/c/n/v /d/chest pain/sob/weakness/falls. OBJECTIVE: Vital Signs Period Temp Pulse Resp BP Sys/Greer Pulse Ox Last 24 Hr 97.6 F-99.1 F 55-65 18-20 128-148/50-73 97-98 GENERAL: AOX3, NAD EYES: PERRL, EOMI ENT: oropharynx clear without exudates, dry mucous membranes. NECK: ROM intact, no LAD, supple. LUNGS: CTAB, no wheezes, no crackles, HEART: Rate mildly bradycardic, irregular rhythm, no M/G/R ABDOMEN: Soft, nontender, nondistended, normoactive bowel sounds, no guarding EXTREMITIES: 2+ pulses, warm, well-perfused, no edema. Rectal: (03/28/19) NANO: Black stool on gloves. No visible blood. No hemorrhoids - external or internal noted. No fissures or skin tags. NEUROLOGICAL: Cranial nerves II through XII grossly intact. Facial effacement on the right side- chronic. Right sided UE weakness and deformity noted PSYCH: Normal mood, normal affect. SKIN: Warm Laboratory Results - last 24 hr CBC,CMP WBC 7.4 K/mm3 (4.0-10.0) 04/06/19 08:10 RBC 3.21 M/mm3 (4.00-5.60) L 04/06/19 08:10 Hgb 8.1 GM/dL (11.7-16.9) L 04/06/19 08:10 Hct 25.8 % (35.4-49) L 04/06/19 08:10 MCV 80.3 fl (80-96) 04/06/19 08:10 MCH 25.3 pg (25.7-33.7) L 04/06/19 08:10 MCHC 31.5 g/dl (32.0-35.9) L 04/06/19 08:10 RDW 29.2 % (11.9-15.9) H 04/06/19 08:10 Plt Count 360 K/MM3 (134-434) 04/06/19 08:10 MPV 7.1 fl (7.5-11.1) L 04/06/19 08:10 Absolute Neuts (auto) 4.3 K/mm3 (1.5-8.0) 03/28/19 05:43 Neutrophils % 72.0 % (42.8-82.8) 03/28/19 05:43 Lymphocytes % 19.1 % (8-40) D 03/28/19 05:43 Monocytes % 5.7 % (3.8-10.2) 03/28/19 05:43 Eosinophils % 1.3 % (0-4.5) D 03/28/19 05:43 Basophils % 1.9 % (0-2.0) 03/28/19 05:43 Nucleated RBC % 0 % (0-0) 03/28/19 05:43 Hypochromia 1+ 03/28/19 05:43 Platelet Estimate Normal 03/28/19 05:43 Polychromasia 1+ 03/28/19 05:43 Poikilocytosis 1+ 03/28/19 05:43 Anisocytosis 1+ 03/28/19 05:43 Microcytosis 1+ 03/28/19 05:43 Macrocytosis 0 03/28/19 05:43 [place] Cells 1+ 03/28/19 05:43 Sodium 141 mmol/L (136-145) 04/06/19 08:10 Potassium 4.3 mmol/L (3.5-5.1) 04/06/19 08:10 Chloride 107 mmol/L (98-107) 04/06/19 08:10 Carbon Dioxide 29 mmol/L (21-32) 04/06/19 08:10 Anion Gap 5 MMOL/L (8-16) L 04/06/19 08:10 BUN 5.1 mg/dL (7-18) L 04/06/19 08:10 Creatinine 0.6 mg/dL (0.55-1.3) 04/06/19 08:10 Est GFR (CKD-EPI)AfAm 107.01 04/06/19 08:10 Est GFR (CKD-EPI)NonAf 92.33 04/06/19 08:10 Random Glucose 93 mg/dL (74-106) 04/06/19 08:10 Calcium 8.8 mg/dL (8.5-10.1) 04/06/19 08:10 Phosphorus 3.2 mg/dL (2.5-4.9) 04/02/19 08:20 Magnesium 2.1 mg/dL (1.8-2.4) 04/05/19 08:10 Iron 16 ug/dL (50-175) L 03/28/19 05:43 TIBC 282 ug/dL (250-450) 03/28/19 05:43 Iron Saturation 5 % (17.5-39) L 03/28/19 05:43 Unsaturated IBC 266 ug/dL (200-275) 03/28/19 05:43 Ferritin 137.7 ng/ml (8-388) 03/28/19 05:43 Total Bilirubin 0.3 mg/dL (0.2-1) 04/05/19 08:10 AST 21 U/L (15-37) 04/05/19 08:10 ALT 14 U/L (13-61) 04/05/19 08:10 Alkaline Phosphatase 103 U/L (45-117) 04/05/19 08:10 Troponin I 0.02 ng/ml (0.00-0.05) 03/27/19 10:55 Total Protein 5.6 g/dl (6.4-8.2) L 04/05/19 08:10 Albumin 2.4 g/dl (3.4-5.0) L 04/05/19 08:10 Carcinoembryonic Ag 26.1 ng/mL (0.0-4.7) H 04/03/19 19:20 Active Medications Current Medications Apixaban (Eliquis -) 2.5 mg PO BID [facility] Last Admin: 04/06/19 10:48 Dose: 2.5 mg Metoprolol Succinate (Toprol Xl -) 25 mg PO DAILY [facility] Last Admin: 04/06/19 10:48 Dose: 25 mg Rosuvastatin Calcium (Crestor -) 20 mg PO [facility] Last Admin: 04/05/19 21:08 Dose: 20 mg Home Medications Medication Instructions Recorded Apixaban [Eliquis] 2.5 mg PO BID 05/25/18 Rosuvastatin [Crestor -] 20 mg PO HS 05/25/18 Clopidogrel Bisulfate [Plavix] 75 mg PO DAILY 03/27/19 Ferrous Sulfate 325 mg PO DAILY 03/27/19 Metoprolol Succinate 25 mg PO DAILY 03/27/19 Microbiology 03/27/19 13:55 Blood - Peripheral Venous Blood Culture - Final NO GROWTH AFTER 5 DAYS INCUBATION 03/27/19 13:45 Blood - Peripheral Venous Blood Culture - Final NO GROWTH AFTER 5 DAYS INCUBATION 03/27/19 11:10 Urine - Urine Clean Catch Urine Culture - Final NO GROWTH OBTAINED ASSESSMENT/PLAN: 83 y/o M, pmh of [place](age 37), CABG (1990), CAD (8 stents), stroke (2008 and 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 Surgery discussed with family the unlikelihood of cure and in the setting of pt' s current condition, surgery would not be recom Family wants palliative care/hospice- we will consult Bed secured for pt at [facility] #A-Fib Eliquis 2.5 bid #Stroke hx Eliquis 2.5 bid #CAD cont Metoprolol #FEN Monitor Electrolytes #DVT ppx: on eliquis Dispo: Eliquis 2.5mg bid, pt going to [facility] tomorrow, will notify daughter- attempt made today, no response, will f/u this weekend Visit type - Emergency Visit Emergency Visit: Yes ED Registration Date: 03/27/19 Care time: The patient presented to the Emergency Department on the above date and was hospitalized for further evaluation of their emergent condition. - New Patient This patient is new to me today: Yes Date on this admission: 04/08/19 - Critical Care Critical Care patient: No - Discharge Referral Referred to [facility] Med P.C.: No ATTENDING PHYSICIAN STATEMENT I saw and evaluated the patient. I reviewed the resident's note and discussed the case with the resident. I agree with the resident's findings and plan as documented. SUBJECTIVE: OBJECTIVE: ASSESSMENT AND PLAN:
--- NOTE | 2019-04-06 19:36 | PN ---
Teaching Attending Note Name of Resident: Patricia Mckeon ATTENDING PHYSICIAN STATEMENT I saw and evaluated the patient. I reviewed the resident's note and discussed the case with the resident. I agree with the resident's findings and plan as documented. SUBJECTIVE: Patient is lying in bed comfortably in no acute distress. Vital Signs Temperature 98.8 F 04/06/19 18:40 Pulse Rate 55 L 04/06/19 18:40 Respiratory Rate 20 04/06/19 18:40 Blood Pressure 155/65 04/06/19 18:40 O2 Sat by Pulse Oximetry (%) 97 04/06/19 09:00 GENERAL: The patient is awake, alert, and fully oriented, in no acute distress. HEAD: Normal with no signs of trauma. EYES: PERRL, extraocular movements intact, sclera anicteric, conjunctiva clear. ENT: Ears normal, oropharynx clear without exudates, moist mucous membranes. NECK: Trachea midline, full range of motion, supple. LUNGS: Breath sounds equal, clear to auscultation bilaterally, no wheezes, no crackles, no accessory muscle use. HEART: Regular rate and rhythm, S1, S2 positive, NOLBERTO 2/6 ,no rub or gallop. ABDOMEN: Soft, NT,ND, normoactive bowel sounds, no guarding, no rebound, no hepatosplenomegaly, no masses appreciated EXTREMITIES: 2+ pulses, warm, well-perfused, no edema. NEUROLOGICAL: Cranial nerves II through XII grossly intact. Normal speech, gait not observed. right sided cva PSYCH: Normal mood, normal affect. SKIN: Warm, dry, normal turgor, no rashes or lesions noted CBCD WBC 7.4 K/mm3 (4.0-10.0) 04/06/19 08:10 RBC 3.21 M/mm3 (4.00-5.60) L 04/06/19 08:10 Hgb 8.1 GM/dL (11.7-16.9) L 04/06/19 08:10 Hct 25.8 % (35.4-49) L 04/06/19 08:10 MCV 80.3 fl (80-96) 04/06/19 08:10 MCHC 31.5 g/dl (32.0-35.9) L 04/06/19 08:10 RDW 29.2 % (11.9-15.9) H 04/06/19 08:10 Plt Count 360 K/MM3 (134-434) 04/06/19 08:10 MPV 7.1 fl (7.5-11.1) L 04/06/19 08:10 CMP Sodium 141 mmol/L (136-145) 04/06/19 08:10 Potassium 4.3 mmol/L (3.5-5.1) 04/06/19 08:10 Chloride 107 mmol/L (98-107) 04/06/19 08:10 Carbon Dioxide 29 mmol/L (21-32) 04/06/19 08:10 Anion Gap 5 MMOL/L (8-16) L 04/06/19 08:10 BUN 5.1 mg/dL (7-18) L 04/06/19 08:10 Creatinine 0.6 mg/dL (0.55-1.3) 04/06/19 08:10 Random Glucose 93 mg/dL (74-106) 04/06/19 08:10 Calcium 8.8 mg/dL (8.5-10.1) 04/06/19 08:10 Total Bilirubin 0.3 mg/dL (0.2-1) 04/05/19 08:10 AST 21 U/L (15-37) 04/05/19 08:10 ALT 14 U/L (13-61) 04/05/19 08:10 Alkaline Phosphatase 103 U/L (45-117) 04/05/19 08:10 Total Protein 5.6 g/dl (6.4-8.2) L 04/05/19 08:10 Albumin 2.4 g/dl (3.4-5.0) L 04/05/19 08:10 CARDIAC ENZYMES Troponin I 0.02 ng/ml (0.00-0.05) 03/27/19 10:55 Current Medications Generic Name Dose Route Start Last Admin Trade Name Feliciano PRN Reason Stop Dose Admin Apixaban 2.5 mg 04/05/19 22:00 04/06/19 10:48 Eliquis - PO 2.5 mg BID RAUL Administration Metoprolol Succinate 25 mg 03/28/19 10:00 04/06/19 10:48 Toprol Xl - PO 25 mg DAILY RAUL Administration Rosuvastatin Calcium 20 mg 03/27/19 22:00 04/05/19 21:08 Crestor - PO 20 mg HS RAUL Administration Medication Instructions Recorded Apixaban [Eliquis] 2.5 mg PO BID 05/25/18 Rosuvastatin [Crestor -] 20 mg PO HS 05/25/18 Clopidogrel Bisulfate [Plavix] 75 mg PO DAILY 03/27/19 Ferrous Sulfate 325 mg PO DAILY 03/27/19 Metoprolol Succinate 25 mg PO DAILY 03/27/19 Microbiology 03/27/19 13:55 Blood - Peripheral Venous Blood Culture - Final NO GROWTH AFTER 5 DAYS INCUBATION 03/27/19 13:45 Blood - Peripheral Venous Blood Culture - Final NO GROWTH AFTER 5 DAYS INCUBATION 03/27/19 11:10 Urine - Urine Clean Catch Urine Culture - Final NO GROWTH OBTAINED Assessment and plan: Patient is an 83yo DNR/DNI male with PMHx of diverticulosis, Afib on Eliquis and Plavix , Iron deficiency anemia (diagnosed October, non compliant with iron supplements due to constipation) CAD (status post multiple stents, CABG), 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 # Large colonic mass . s/p colonoscopy with pathology result of adenoca.of colon with likely liver mets and possible lung Ca, with near obstructing lesion described on colonoscopy , discussed with the surgeon , as per surgeon he is not a candidate for sx. dr Aparicio seen the patient and appreciated. CEA 26. Palliative care consulted, [facility] forms are signed in the chart. #s/p CAP : completed course of antibiotics # H/o A fib: on eliquis now, cont toprol # H/o CVA: cont statin, AC # Malnutrition and cachexia. # Hypokalemia: resolved. monitor and replete as needed PT eval : patient did 50Feet and refused today since was tired. Patient is going to [facility] when bed is available
[2019-04-06] MEDS: ROSUVASTATIN CA 20 MG TABLET (FP) PO SCH (21:16)
[2019-04-07 09:15] LABS: HEMATOCRIT 26.9 % (35.4-49); HEMOGLOBIN 8.5 GM/dL (11.7-16.9); MCH 25.8 pg (25.7-33.7); MCHC 31.6 g/dl (32.0-35.9); MEAN CELL VOLUME 81.6 fl (80-96); MEAN PLT VOLUME 7.1 fl (7.5-11.1); PLATELET COUNT 394 K/MM3 (134-434); RDW 29.5 % (11.9-15.9); WHITE BLOOD COUNT 7.5 K/mm3 (4.0-10.0)
--- NOTE | 2019-04-07 09:16 | DS ---
Physical Exam: SUBJECTIVE: Patient seen and examined OBJECTIVE: Vital Signs Temperature 98 F 04/07/19 06:00 Pulse Rate 54 L 04/07/19 06:00 Respiratory Rate 18 04/07/19 06:00 Blood Pressure 144/60 04/07/19 06:00 O2 Sat by Pulse Oximetry (%) 96 04/06/19 21:00 PHYSICAL EXAM GENERAL: The patient is awake, alert, and fully oriented, in no acute distress. HEAD: Normal with no signs of trauma. EYES: PERRL, extraocular movements intact, sclera anicteric, conjunctiva clear. ENT: Ears normal, nares patent, oropharynx clear without exudates, moist mucous membranes. NECK: Trachea midline, full range of motion, supple. LUNGS: Breath sounds equal, clear to auscultation bilaterally, no wheezes, no crackles, no accessory muscle use. HEART: Regular rate and rhythm, S1, S2 without murmur, rub or gallop. ABDOMEN: Soft, nontender, nondistended, normoactive bowel sounds, no guarding, no rebound, no hepatosplenomegaly, no masses. EXTREMITIES: 2+ pulses, warm, well-perfused, no edema. NEUROLOGICAL: Cranial nerves II through XII grossly intact. Normal speech, gait not observed. PSYCH: Normal mood, normal affect. SKIN: Warm, dry, normal turgor, no rashes or lesions noted. LABS Laboratory Results - last 24 hr 04/06/19 08:10 PT with INR 14.40 H INR 1.22 H PTT (Actin FS) 30.5 CBCD WBC 7.4 K/mm3 (4.0-10.0) 04/06/19 08:10 RBC 3.21 M/mm3 (4.00-5.60) L 04/06/19 08:10 Hgb 8.1 GM/dL (11.7-16.9) L 04/06/19 08:10 Hct 25.8 % (35.4-49) L 04/06/19 08:10 MCV 80.3 fl (80-96) 04/06/19 08:10 MCHC 31.5 g/dl (32.0-35.9) L 04/06/19 08:10 RDW 29.2 % (11.9-15.9) H 04/06/19 08:10 Plt Count 360 K/MM3 (134-434) 04/06/19 08:10 MPV 7.1 fl (7.5-11.1) L 04/06/19 08:10 CMP Sodium 141 mmol/L (136-145) 04/06/19 08:10 Potassium 4.3 mmol/L (3.5-5.1) 04/06/19 08:10 Chloride 107 mmol/L (98-107) 04/06/19 08:10 Carbon Dioxide 29 mmol/L (21-32) 04/06/19 08:10 Anion Gap 5 MMOL/L (8-16) L 04/06/19 08:10 BUN 5.1 mg/dL (7-18) L 04/06/19 08:10 Creatinine 0.6 mg/dL (0.55-1.3) 04/06/19 08:10 Random Glucose 93 mg/dL (74-106) 04/06/19 08:10 Calcium 8.8 mg/dL (8.5-10.1) 04/06/19 08:10 Total Bilirubin 0.3 mg/dL (0.2-1) 04/05/19 08:10 AST 21 U/L (15-37) 04/05/19 08:10 ALT 14 U/L (13-61) 04/05/19 08:10 Alkaline Phosphatase 103 U/L (45-117) 04/05/19 08:10 Total Protein 5.6 g/dl (6.4-8.2) L 04/05/19 08:10 Albumin 2.4 g/dl (3.4-5.0) L 04/05/19 08:10 CARDIAC ENZYMES Troponin I 0.02 ng/ml (0.00-0.05) 03/27/19 10:55 Current Medications Generic Name Dose Route Start Last Admin Trade Name Freq PRN Reason Stop Dose Admin Apixaban 2.5 mg 04/05/19 22:00 04/06/19 21:16 Eliquis - PO 2.5 mg BID RAUL Administration Metoprolol Succinate 25 mg 03/28/19 10:00 04/06/19 10:48 Toprol Xl - PO 25 mg DAILY RAUL Administration Rosuvastatin Calcium 20 mg 03/27/19 22:00 04/06/19 21:16 Crestor - PO 20 mg HS RAUL Administration Home Medications Medication Instructions Recorded Apixaban [Eliquis] 2.5 mg PO BID 05/25/18 Rosuvastatin [Crestor -] 20 mg PO HS 05/25/18 Clopidogrel Bisulfate [Plavix] 75 mg PO DAILY 03/27/19 Ferrous Sulfate 325 mg PO DAILY 03/27/19 Metoprolol Succinate 25 mg PO DAILY 03/27/19 HOSPITAL COURSE: Date of Admission:03/27/19 Date of Discharge: 04/07/19 Patient is an 83yo DNR/DNI male with PMHx of diverticulosis, Afib on Eliquis and Plavix , Iron deficiency anemia (diagnosed October, non compliant with iron supplements due to constipation) CAD (status post multiple stents, CABG), 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 # Large colonic mass . s/p colonoscopy with pathology result of adenoca.of colon with likely liver mets and possible lung Ca, with near obstructing lesion described on colonoscopy , discussed with the surgeon , as per surgeon he is not a candidate for sx. dr Aparicio seen the patient and appreciated. CEA 26. Palliative care consulted, [facility]olt forms are signed in the chart. #s/p CAP : completed course of antibiotics # H/o A fib: on eliquis now, cont toprol # H/o CVA: cont statin, AC # Malnutrition and cachexia. # Hypokalemia: resolved. monitor and replete as needed PT eval : patient did 50Feet and refused today since was tired. Patient is going to [facility] Discharge Summary Problems reviewed: Yes Reason For Visit: FEVER OF UNKNOWN ORIGIN Current Active Problems Colon adenocarcinoma (Chronic) Condition: Improved - Instructions Diet, Activity, Other Instructions: You were admitted to the hospital for weakness and blood in your stool While you were here, we evaluated you with lab work, blood work, imaging including a CAT scan of your stomach and chest. We also did a colonoscopy which found that you had a tumor in you colon, causing you to bleed in your stool. This tumor is cancerous and requires surgery. It has also gone to your liver and lungs. However, after speaking with you and your family, you have decided to forgo surgical or medical intervention at this point. You can revisit the options outpatient if you change your mind. You have been accepted to [facility], where you will undergo rehabilitation Please take all your medications as prescribed Please follow up with your primary care physician in 1 week Please follow up with your oncologist in 1 week Return to the emergency room, if you experience any worsening of your symptoms, nausea, vomiting, chest pain, shortness of breath, weakness or any worsening of condition. Referrals: Ruben Rodriges MD [Staff Physician] - Tesfaye Woodard DO [Staff Physician] - Taqueria Sam MD [Primary Care Provider] - Santos Aparicio MD [Staff Physician] - Jamie Hale MD [Staff Physician] - Disposition: HOME - Home Medications Comprehensive Discharge Medication List: Ambulatory Orders Apixaban [Eliquis] 2.5 mg PO BID 05/25/18 Rosuvastatin [Crestor -] 20 mg PO HS 05/25/18 Clopidogrel Bisulfate [Plavix] 75 mg PO DAILY 03/27/19 Ferrous Sulfate 325 mg PO DAILY 03/27/19 Metoprolol Succinate 25 mg PO DAILY 03/27/19 - Discharge Referral Referred to [facility] Med P.C.: No
[2019-04-07 10:00] LABS: ALBUMIN 2.6 g/dl (3.4-5.0); BILIRUBIN,TOTAL 0.3 mg/dL (0.2-1); BLOOD UREA NITROGEN 6.6 mg/dL (7-18); CALCIUM 8.6 mg/dL (8.5-10.1); CREATININE 0.7 mg/dL (0.55-1.3); POTASSIUM 4.1 mmol/L (3.5-5.1); TOT PROT 5.8 g/dl (6.4-8.2)
[2019-04-07] MEDS: APIXABAN 2.5 MG TABLET PO SCH (10:19)
[2019-04-07] MEDS: metoPROLOL SUCCINATE 25 MG TAB.SR.24H (FP) PO SCH (10:19)
[2019-04-07 12:34] VITALS: BP 129/48; PULSE 56; TEMP 98.2
--- NOTE | 2019-04-10 14:12 | DS ---
Physical Exam: SUBJECTIVE: Patient seen and examined and today has no C/o of issues overnight or event overnight. Had bm and urinated. Pt tolerating diet well. Pt is in a good state of health today. Denies f/c/n/v/d/chest pain/sob/weakness/falls. OBJECTIVE: Last Vital Signs Temp Pulse Resp BP Pulse Ox 98.2 F 56 L 18 129/48 L 95 04/07/19 09:00 04/07/19 09:00 04/07/19 09:00 04/07/19 09:00 04/07/19 09:00 PHYSICAL EXAM GENERAL: AOX3, NAD EYES: PERRL, EOMI ENT: oropharynx clear without exudates, dry mucous membranes. NECK: ROM intact, no LAD, supple. LUNGS: CTAB, no wheezes, no crackles, HEART: Rate mildly bradycardic, irregular rhythm, no M/G/R ABDOMEN: Soft, nontender, nondistended, normoactive bowel sounds, no guarding EXTREMITIES: 2+ pulses, warm, well-perfused, no edema. Rectal: (03/28/19) NANO: Black stool on gloves. No visible blood. No hemorrhoids - external or internal noted. No fissures or skin tags. NEUROLOGICAL: Cranial nerves II through XII grossly intact. Facial effacement on the right side- chronic. Right sided UE weakness and deformity noted PSYCH: Normal mood, normal affect. SKIN: Warm LABS CBC,CMP WBC 7.5 K/mm3 (4.0-10.0) 04/07/19 08:25 RBC 3.30 M/mm3 (4.00-5.60) L 04/07/19 08:25 Hgb 8.5 GM/dL (11.7-16.9) L 04/07/19 08:25 Hct 26.9 % (35.4-49) L 04/07/19 08:25 MCV 81.6 fl (80-96) 04/07/19 08:25 MCH 25.8 pg (25.7-33.7) 04/07/19 08:25 MCHC 31.6 g/dl (32.0-35.9) L 04/07/19 08:25 RDW 29.5 % (11.9-15.9) H 04/07/19 08:25 Plt Count 394 K/MM3 (134-434) 04/07/19 08:25 MPV 7.1 fl (7.5-11.1) L 04/07/19 08:25 Absolute Neuts (auto) 4.3 K/mm3 (1.5-8.0) 03/28/19 05:43 Neutrophils % 72.0 % (42.8-82.8) 03/28/19 05:43 Lymphocytes % 19.1 % (8-40) D 03/28/19 05:43 Monocytes % 5.7 % (3.8-10.2) 03/28/19 05:43 Eosinophils % 1.3 % (0-4.5) D 03/28/19 05:43 Basophils % 1.9 % (0-2.0) 03/28/19 05:43 Nucleated RBC % 0 % (0-0) 03/28/19 05:43 Hypochromia 1+ 03/28/19 05:43 Platelet Estimate Normal 03/28/19 05:43 Polychromasia 1+ 03/28/19 05:43 Poikilocytosis 1+ 03/28/19 05:43 Anisocytosis 1+ 03/28/19 05:43 Microcytosis 1+ 03/28/19 05:43 Macrocytosis 0 03/28/19 05:43 [place] Cells 1+ 03/28/19 05:43 Sodium 139 mmol/L (136-145) 04/07/19 08:25 Potassium 4.1 mmol/L (3.5-5.1) 04/07/19 08:25 Chloride 104 mmol/L (98-107) 04/07/19 08:25 Carbon Dioxide 29 mmol/L (21-32) 04/07/19 08:25 Anion Gap 7 MMOL/L (8-16) L 04/07/19 08:25 BUN 6.6 mg/dL (7-18) L 04/07/19 08:25 Creatinine 0.7 mg/dL (0.55-1.3) 04/07/19 08:25 Est GFR (CKD-EPI)AfAm 100.44 04/07/19 08:25 Est GFR (CKD-EPI)NonAf 86.66 04/07/19 08:25 Random Glucose 94 mg/dL (74-106) 04/07/19 08:25 Calcium 8.6 mg/dL (8.5-10.1) 04/07/19 08:25 Phosphorus 3.2 mg/dL (2.5-4.9) 04/02/19 08:20 Magnesium 2.1 mg/dL (1.8-2.4) 04/05/19 08:10 Iron 16 ug/dL (50-175) L 03/28/19 05:43 TIBC 282 ug/dL (250-450) 03/28/19 05:43 Iron Saturation 5 % (17.5-39) L 03/28/19 05:43 Unsaturated IBC 266 ug/dL (200-275) 03/28/19 05:43 Ferritin 137.7 ng/ml (8-388) 03/28/19 05:43 Total Bilirubin 0.3 mg/dL (0.2-1) 04/07/19 08:25 AST 19 U/L (15-37) 04/07/19 08:25 ALT 16 U/L (13-61) 04/07/19 08:25 Alkaline Phosphatase 104 U/L (45-117) 04/07/19 08:25 Troponin I 0.02 ng/ml (0.00-0.05) 03/27/19 10:55 Total Protein 5.8 g/dl (6.4-8.2) L 04/07/19 08:25 Albumin 2.6 g/dl (3.4-5.0) L 04/07/19 08:25 Carcinoembryonic Ag 26.1 ng/mL (0.0-4.7) H 04/03/19 19:20 Home Medications Medication Instructions Recorded Apixaban [Eliquis] 2.5 mg PO BID 05/25/18 Rosuvastatin [Crestor -] 20 mg PO HS 05/25/18 Clopidogrel Bisulfate [Plavix] 75 mg PO DAILY 03/27/19 Ferrous Sulfate 325 mg PO DAILY 03/27/19 Metoprolol Succinate 25 mg PO DAILY 03/27/19 Docusate Sodium [Colace -] 100 mg PO DAILY #30 capsule 04/07/19 Microbiology 03/27/19 13:55 Blood - Peripheral Venous Blood Culture - Final NO GROWTH AFTER 5 DAYS INCUBATION 03/27/19 13:45 Blood - Peripheral Venous Blood Culture - Final NO GROWTH AFTER 5 DAYS INCUBATION 03/27/19 11:10 Urine - Urine Clean Catch Urine Culture - Final NO GROWTH OBTAINED HOSPITAL COURSE: Date of Admission:03/27/19 83 y/o M, pmh of [place](age 37), CABG (1990), CAD (8 stents), stroke (2008 and 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 Pt was previously admitted 2 weeks ago for a GI bleed, during which he received 2U of PRBCs. At the time, pt was advised to undergo a colonoscopy, however patient did not want further invasive intervention and was discharged home. At this admission, he was found to have positive blood in the stool. CAT scan of the abdomen showed possibility of a malignancy in the distal descending colon. He underwent an endoscopy which revealed a circumferential mass in the left colon w/ luminal compromise inhibiting evaluation of the proximal colon. Bx came back for adenocarcinoma of the colon. CT chest showed mets to the lungs and liver. Oncology was consulted and they agree surgery is the best option given the setting of obstruction/ bleeding. Surgery discussed with family the unlikelihood of cure and in the setting of pt's current condition, surgery would not be recommended. Therefore, family moved forward with hospice. Pt was discharged to [facility] During this admission, pt was also treated for community acquired pneumonia, which resolved after treatment with abx Ceftriaxone+Azithro. Head CT- No acute intracranial pathology. Chronic left cerebral infarct. Chronic lacunar infarct-right fernandez radiata. 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 CT chest 03/28- Likely posterior infiltrate RLL. Multiple upper and lower lobe pulmonary nodules seen b/l w/ max diameter of 1.5 CTAP 08/18- cannot rule out lesion in distal descending colon. Possibility of malignancy which could cause weakness. Colonoscopy- shows circumferential mass in the left colon w/ luminal compromise inhibiting evaluation of the proximal colon. Date of Discharge: 04/10/19 Minutes to complete discharge: 35 Discharge Summary Problems reviewed: Yes Reason For Visit: FEVER OF UNKNOWN ORIGIN Condition: Improved - Instructions Diet, Activity, Other Instructions: You were admitted to the hospital for weakness and blood in your stool While you were here, we evaluated you with lab work, blood work, imaging including a CAT scan of your stomach and chest. We also did a colonoscopy which found that you had a tumor in you colon, causing you to bleed in your stool. This tumor is cancerous and requires surgery. It has also gone to your liver and lungs. you are a high risk for surgery as per determination of the surgeon. You can revisit the options outpatient if you change your mind. You have been accepted to [facility], where you will undergo rehabilitation Please take all your medications as prescribed Please follow up with your primary care physician in 1 week Please follow up with your oncologist in 1 week Return to the emergency room, if you experience any worsening of your symptoms, nausea, vomiting, chest pain, shortness of breath, weakness or any worsening of condition. Referrals: Ruben Rodriges MD [Staff Physician] - Tesfaye Woodard DO [Staff Physician] - Taqueria Sam MD [Primary Care Provider] - Santos Aparicio MD [Staff Physician] - Jamie Hale MD [Staff Physician] - Disposition: CUSTODIAL FACILITY - Home Medications Comprehensive Discharge Medication List: Ambulatory Orders Apixaban [Eliquis] 2.5 mg PO BID 05/25/18 Rosuvastatin [Crestor -] 20 mg PO HS 05/25/18 Clopidogrel Bisulfate [Plavix] 75 mg PO DAILY 03/27/19 Ferrous Sulfate 325 mg PO DAILY 03/27/19 Metoprolol Succinate 25 mg PO DAILY 03/27/19 Docusate Sodium [Colace -] 100 mg PO DAILY #30 capsule 04/07/19 This patient is new to me today: Yes Date on this admission: 04/10/19 Emergency Visit: Yes ED Registration Date: 03/27/19 Care time: The patient presented to the Emergency Department on the above date and was hospitalized for further evaluation of their emergent condition. Critical Care patient: No - Discharge Referral Referred to [facility] Med P.C.: No ATTENDING PHYSICIAN STATEMENT I saw and evaluated the patient. I reviewed the resident's note and discussed the case with the resident. I agree with the resident's findings and plan as documented. SUBJECTIVE: OBJECTIVE: ASSESSMENT AND PLAN:
== END 2019-04-07 11:07 | DRG 374 ==
LOC: JER 09:47 → JERBED 15:03 → OBSVTOIN 16:38 → JERBED 03-28 08:47 → J5S 03-28 21:43
PROVIDERS: ADMIT Internal Medicine; ATTEND Internal Medicine
PROC: 0DBG8ZX Excision of Left Large Intestine, Via Natural or Artificial Opening Endoscopic, Diagnostic (ICD-10-PCS; 2019-04-03)
PROC: 0DJD8ZZ Inspection of Lower Intestinal Tract, Via Natural or Artificial Opening Endoscopic (ICD-10-PCS; principal; 2019-04-03 12:45)
DX: C18.6 Malignant neoplasm of descending colon (principal); J18.9 Pneumonia, unspecified organism; I69.351 Hemiplegia and hemiparesis following cerebral infarction affecting right dominant side; K92.2 Gastrointestinal hemorrhage, unspecified; R64 Cachexia; Z68.1 Body mass index [BMI] 19.9 or less, adult; E46 Unspecified protein-calorie malnutrition; C78.7 Secondary malignant neoplasm of liver and intrahepatic bile duct; C78.00 Secondary malignant neoplasm of unspecified lung; I25.10 Atherosclerotic heart disease of native coronary artery without angina pectoris; K57.90 Diverticulosis of intestine, part unspecified, without perforation or abscess without bleeding; D50.9 Iron deficiency anemia, unspecified; I25.2 Old myocardial infarction; K64.8 Other hemorrhoids; N40.0 Benign prostatic hyperplasia without lower urinary tract symptoms; E87.6 Hypokalemia; R50.9 Fever, unspecified; I48.0 Paroxysmal atrial fibrillation; Z95.5 Presence of coronary angioplasty implant and graft; Z95.1 Presence of aortocoronary bypass graft
CPT/HCPCS: 36415; 70450-TC; 71045-TC-FY; 71250-TC; 71260-TC; 74177-TC; 76775-TC; 80048; 80053; 81003; 82272; 82378; 82728; 83540; 83550; 83735; 84100; 84132; 84484; 85025; 85027; 85610; 85730; 86850; 86900; 86901; 87040; 87086; 87804; 88305-TC; 93005; 93010; 93306-TC; 97116-GP; 97162-GP; 99285-25; G0378; J0131; J1644; J7030; Q9967